=== PATIENT | female | born 1960 | race Caucasian/White ===

== ENCOUNTER → 2024-12-14 | Outpatient (CLI) | payer BC, SELFPAY ==
--- NOTE | 2024-12-14 15:00 | RAD_ITS ---
PROCEDURE: PELVIS 1 OR 2 VIEWS 12/14/2024 REASON FOR EXAM: RA TECHNIQUE: Procedure Code: RADPEL Modality: DX Procedure: PELVIS 1 OR 2 VIEWS COMPARISON: None FINDINGS: Hardware: None Bones: There is normal mineralization of the osseous structures. There are no fractures or dislocations. Degenerative changes of the lower lumbar spine are noted. Joints: SI joints and pubic symphysis are unremarkable. Both hip joints are well preserved. Soft tissues: Soft tissues are unremarkable. RAD/Pelvis 1 or 2 Views IMPRESSION: Degenerative changes of the lower lumbar spine, otherwise, unremarkable pelvic study. Reading Location: [id number]
--- NOTE | 2024-12-14 15:00 | RAD_ITS ---
PROCEDURE: HAND MIN 3 VIEWS 12/14/2024 REASON FOR EXAM: RA TECHNIQUE: Procedure Code: CHELSY Modality: DX Procedure: HAND MIN 3 VIEWS Laterality: Left COMPARISON: None FINDINGS: Bones: There is mild diffuse osteopenia of the osseous structures. There are no fractures or dislocations. Joints: Very mild arthritic changes are seen involving the D IP joints of the 2nd, 3rd, 4th, and 5th digits. The remaining joints are well preserved. Soft tissues: Soft tissues are unremarkable. RAD/Hand Min 3 Views IMPRESSION: Mild diffuse osteopenia of the osseous structures. Very mild osteoarthritic changes involving the D IP joints of the 2nd, 3rd, 4th and 5th digits Reading Location: [id number]
--- NOTE | 2024-12-14 15:01 | RAD_ITS ---
PROCEDURE: HAND MIN 3 VIEWS 12/14/2024 REASON FOR EXAM: RA TECHNIQUE: Procedure Code: CHELSY Modality: DX Procedure: HAND MIN 3 VIEWS Laterality: Right COMPARISON: None FINDINGS: Bones: Very mild diffuse osteopenia of the osseous structures is noted. There are no fractures or dislocations. Joints: Very mild arthritic changes are seen involving the D IP joints of the 2nd, 3rd and 5th digits. The remaining joints are well preserved. Soft tissues: Soft tissues are unremarkable. RAD/Hand Min 3 Views IMPRESSION: Mild diffuse osteopenia of the osseous structures. 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 Reading Location: [id number]
[2024-12-14 19:40] LABS: AST(SGOT) 26 U/L (<=31); Alanine Aminotransfer ALT/SGPT 38 U/L (<=34); Albumin, Serum 4.2 g/dL (3.4-4.8); Alkaline Phosphatase 113 U/L (35-104); Anion Gap 16 (5-15); BUN 13 mg/dL (4-19); BUN/Creat Ratio 16.1 RATIO (10-20); Calcium,Total 8.5 mg/dL (7.6-11.0); Carbon Dioxide 19.3 mmol/L (21.0-32.0); Chloride 103 mmol/L (98-108); Globulin 3.1 g/dL (2.2-4.2); Glucose 63 mg/dL (70-99); Hepatitis B Surface Antigen Nonreactive (Nonreactive); Hepatitis C Antibody Nonreactive (Nonreactive); Potassium 3.9 mmol/L (3.3-5.1)
[2024-12-14 19:42] LABS: CRP < 3.00 mg/L (0.0-3.0)
[2024-12-14 20:20] LABS: Hematocrit 44.5 % (37-47); Hemoglobin 14.9 g/dL (12.0-15.0); Immature Granulocytes Count 0.060 X10^3/uL (0.0-0.0); Mean Corp Hgb Conc 33.5 g/dL (32-36); Mean Corpuscular Volume 91.8 fL (81-99); Mean Platelet Vol. 9.4 fl (6.2-12.0); NRBC Flagged by Analyzer 0 % (0-5); Platelet Count 357 K/mm3 (150-450); RBC Distribution Width CV 13.3 % (11.6-14.6); RBC Distribution Width SD 44.3 fl (35.1-43.9); Red Blood Count 4.85 M/mm3 (4.2-5.4); White Blood Count 11.3 K/mm3 (4.4-11.0)
[2024-12-17 15:08] LABS: ANTINUCLEAR ANTIBODIES DIRECT Negative (Negative)
== END | disposition home or self-care (01) ==
LOC: MTLAB 14:59
PROVIDERS: Referring Provider Internal Medicine Rheumatology; Visit Provider Internal Medicine Rheumatology
DX: M05.79 Rheumatoid arthritis with rheumatoid factor of multiple sites without organ or systems involvement (principal); Z79.899 Other long term (current) drug therapy
CPT/HCPCS: 36415; 72170; 73130; 80053; 85025; 85652; 86038; 86140; 86200; 86431; 86706; 86803; 87340

== ENCOUNTER → 2025-01-08 | Outpatient (CLI) | payer BC, SELFPAY ==
--- OUTSIDE RECORDS SUMMARY | 2025-01-08 17:53 | XMS RPT_ITS | CCD ---
Author Organization [facility] Care Team Providers Care Autos Disassembler Name Role Phone ALBERTO BEDOYA, PAMELA Zurita Attending Bradley [facility]azzi MD, [facility] Bradley [facility]azzi [facility], [facility] Primary Care Physician Alberto BEDOYA, Dr. Choi Primary Care Physician Magalie BEDOYA, Dr. Saba Attending Physician [phone] Magalie BEDOYA, Dr. Saba Referring Provider Pamela Dominguez Primary Care Unavailable Wandy Mejias Referring Unavailable Wandy Mejias Attending PAMELA Todd Primary Care Unavailable ELLE LU MD Attending [facility] PAMELA DOMINGUEZ Attending Unavailable ANIRUDH LOPEZ DO Attending Bradley Bazzi MD, [facility] Bradley Bazzi MD, [facility] ANIRUDH Guevara DO Attending Bradley Bazzi MD, [facility] Care SILVIA Bridges MD Attending Vilma DOMINGUEZ MD, [facility] Unavailab le KLEANIRUDH CHAU DO Attending Bradley Bazzi MD, [facility] Unavailab ANIRUDH Guevara DO Attending Bradley [facility], [facility] stephanie KLEANIRUDH CHAU DO Attending IRA Roy MD Consulting Vilma DOMINGUEZ MD, [facility] Unavailab Rose Mary BEDOYA, [facility] Attending ROSEANN Murcia Consulting Unavailable ANIRUDH LOPEZ DO Attending Bradley Bazzi MD, [facility] Bradley Bazzi MD, PAMELA Zurita Primary Care Bradley Bazzi MD, PAMELA S Attending Bradley Bazzi MD, PAMELA S Primary Care ANIRUDH Massey DO Attending ANIRUDH Massey DO Attending Bradley Bazzi MD, PAMELA S Primary Care Bradley Bazzi MD, PAMELA S Primary Care Bradley Millan MD, ELLE Attending Stefano ble Allergies Allergy Classification Reported Allergen(s) Allergy Type Date of Onset Reaction(s) Facility (7 sources) Purified Protein Derivative of Tuberculin; Translations: [tuberculin purified protein derivative] Drug Allergy Positive [facility] Medications Current Medications Medication Drug Class(es) Dates Sig (Normalized) Sig (Original) acetaminophen 500 mg oral tablet (2 sources) Start: 11-20-2024 Tylenol Extra Strength 500 mg oral tablet Dose : 1,000 mg = 2 tab(s), Oral, q4h, PRN as needed for pain, # 120 tab(s), 0 Refill(s) Start Date: 11/20/24 Status: Ordered Medication Dispense Status: Completed Quantity: 120.0 Unit: tab(s) Total Allowed Fills: 1 Fills Dispensed: 0 Start: 10-16-2024 acetaminophen 500 mg oral tablet Dose : 1,000 mg = 2 tab(s), Oral, TID, PRN as needed for pain, # 20 tab(s), 1 Refill(s), [facility]: [id number], 163.8, cm, 10/16/24 6:11:00 EDT, Height, kg, 10/16/24 6:11:00 EDT, Dosing Weight Start Date: 10/16/24 Status: Ordered Quantity: 20.0 Unit: tab(s) Repeat number: 2 Albuterol (10 sources) beta2-Adrenergic Agonist Start: 01-28-2023 take 1 puff(s) by inhalation every six hours Ventolin HFA MDI (90 mcg/inh) inhalation aerosol 1 puff(s), Inhalation, q6h, # 18 gram(s), 6 Refill(s), Pharmacy: [id number], 162.8, cm, 10/28/22 16:10:00 EDT, Height, kg, 10/28/22 16:10:00 EDT, Dosing Weight Start Date: 01/28/23 Status: Ordered Medication Dispense Status: Completed Quantity: 18.0 Unit: g Total Allowed Fills: 7 Fills Dispensed: 0 Start: 01-28-2023 take 1 puff(s) by in halation every six hours Ventolin HFA MDI (90 mcg/inh) inhalation aerosol 1 puff(s), Inhalation, q6h, # 18 gram(s), 6 Refill(s), Pharmacy: [id number], 162.8, cm, 10/28/22 16:10:00 EDT, Height, kg, 10/28/22 16:10:00 EDT, Dosing Weight Start Date: 01/28/23 Status: Ordered Quantity: 18.0 Unit: g Repeat number: 7 anastrozole 1 mg oral tablet (1 source) Aromatase Inhibitor Start: 11-20-2024 anastrozole 1 mg oral tablet Dose : 1 mg = 1 tab(s), Oral, Daily, # 30 tab(s), 0 Refill(s), [facility]: [facility], Breast cancer of upper-outer quadrant of right female breast, 162.6, cm, 11/20/24 14:48:00 EDT, Height, kg, 11/20/24 14:48:00 EDT, Dosing Weight Start Date: 11/20/24 Status: Ordered Medication Dispense Status: Completed Quantity: 30.0 Unit: tab(s) Total Allowed Fills: 1 Fills Dispensed: 0 Indications: Malignant neoplasm of upper-outer quadrant of right female breast; atorvastatin 10 mg oral tablet (10 sources) HMG-CoA Reductase Inhibitor Start: 05-09-2024 take 1 tablet by mouth once daily atorvastatin 10 mg oral tablet 1 tab(s), Oral, qDay, # 90 tab(s), 3 Refill(s), [id number], 162, cm, 05/03/24 15:29:00 EST, Height, kg, 05/03/24 15:29:00 EST, Dosing Weight Start Date: 05/09/24 Status: Ordered Medication Dispense Status: Completed Quantity: 90.0 Unit: tab(s) Total Allowed Fills: 1 Fills Dispensed: 0 chondroitin sulfates 200 mg / glucosamine sulfate 250 mg oral capsule (10 sources) Start: 11-03-2018 take 1 capsule by mouth twice daily chondroitin-glucosa mine 200 mg-250 mg oral capsule Dose = 1 cap(s), Oral, BID, 0 Refill(s) Start Date: 11/03/18 Status: Ordered Medication Dispense Status: Completed Total Allowed Fills: 1 Fills Dispensed: 0 Start: 11-03-2018 take 1 capsule by [facility] once daily chondroitin-glucosamine 200 mg-250 mg oral capsule cap(s), Oral, qDay, 0 Refill(s) Start Date: 11/03/18 Status: Ordered Repeat number: 1 cloNIDine hydrochloride 0.2 mg oral tablet (10 sources) Central alpha-2 Adrenergic Agonist Start: 08-28-2024 take 1 tablet by mouth once daily at bedtime cloNIDine 0.2 mg oral tablet 1 tab(s), Oral, qHS, # 90 tab(s), 4 Refill(s) Start Date: 08/28/24 Status: Ordered Medication Dispense Status: Completed Quantity: 90.0 Unit: tab(s) Total Allowed Fills: 5 Fills Dispensed: 0 Co Q-10 100 mg oral capsule (3 sources) Start: 11-03-2018 Co Q-10 100 mg oral capsule Dose : 100 mg = 1 cap(s), Oral, Daily, 0 Refill(s) Start Date: 11/03/18 Status: Ordered Repeat number: 1 Co-Q10 200 mg oral capsule (7 sources) Start: 10-11-2024 Co-Q10 200 mg oral capsule Dose : 200 mg = 1 cap(s), Oral, qAM, # 90 cap(s), 0 Refill(s) Start Date: 10/11/24 Status: Ordered Medication Dispense Status: Completed Quantity: 90.0 Unit: cap(s) Total Allowed Fills: 1 Fills Dispensed: 0 Start: 10-11-2024 Co-Q10 200 mg oral capsule Dose : 200 mg = 1 cap(s), Oral, qAM, # 90 cap(s), 0 Refill(s) Start Date: 10/11/24 Status: Ordered Quantity: 90.0 Unit: cap(s) Repeat number: 1 cyclobenzaprine hydrochloride 10 mg oral tablet (1 source) Muscle Relaxant Start: 10-16-2024 take 1 tablet by mouth every eight hours as needed for pain cyclobenzaprine 10 mg oral tablet Dose : 10 mg =, Oral, q8h, PRN Pain, # 10 tab(s), 1 Refill(s), [facility]: [id number], 163.8, cm, 10/16/24 6:11:00 EDT, Height, kg, 10/16/24 6:11:00 EDT, Dosing Weight Start Date: 10/16/24 Status: Ordered Quantity: 10.0 Unit: tab(s) Repeat number: 2 diclofenac sodium 0.01 mg/mg topical gel (7 sources) Nonsteroidal Anti-inflammatory Drug Start: 10-11-2024 apply 2 doses topically twice daily as needed for pain Voltaren 1% topical gel 2 = gram(s), Topical, BID, PRN as needed for pain, # 1 EA, 0 Refill(s), Gel, 97.8 Start Date: 10/11/24 Status: Ordered Medication Dispense Status: Completed Quantity: 1.0 Unit: EA Total Allowed Fills: 1 Fills Dispensed: 0 Fish Oils (10 sources) Start: 10-11-2024 Fish Oil 1000 mg oral capsule Dose : 1,000 mg = 1 cap(s), Oral, qAM, # 60 cap(s), 0 Refill(s) Start Date: 10/11/24 Status: Ordered Medication Dispense Status: Completed Quantity: 60.0 Unit: cap(s) Total Allowed Fills: 1 Fills Dispensed: 0 Start: 10-11-2024 Fish Oil 1000 mg oral capsule Dose : 1,000 mg = 1 cap(s), Oral, qAM, # 60 cap(s), 0 Refill(s) Start Date: 10/11/24 Status: Ordered Quantity: 60.0 Unit: cap(s) Repeat number: 1 Start: 11-03-2018 Fish Oil 1000 mg oral capsule Dose : 1,000 mg = 1 cap(s), Oral, qDay, # 90 cap(s), 0 Refill(s) Start Date: 11/03/18 Status: Ordered Quantity: 90.0 Unit: cap(s) Repeat number: 1 folic acid 1 mg oral tablet (10 sources) Start: 12-02-2020 folic acid 1 m g oral tablet Dose : 1 mg = 1 tab(s), Oral, qDay, # 90 tab(s), 4 Refill(s), Pharmacy: [id number], 162, cm, 10/21/20 15:35:00 EDT, Height, kg, 10/21/20 15:35:00 EDT, Dosing Weight Start Date: 12/02/20 Status: Ordered Medication Dispense Status: Completed Quantity: 90.0 Unit: tab(s) Total Allowed Fills: 5 Fills Dispensed: 0 Hair, Skin, & Nails Gummies oral tablet, chewable (10 sources) Start: 11-03-2018 take 1 tablet by mouth once daily in the morning Hair, Skin, & Nails Gummies oral tablet, chewable Dose = 2 tab(s), Chewed, qAM, 0 Refill(s) Start Date: 11/03/18 Status: Ordered Medication Dispense Status: Completed Total Allowed Fills: 1 Fills Dispensed: 0 Start: 11-03-2018 take 1 tablet by idalia th once daily in the morning Hair, Skin, & Nails Gummies oral tablet, chewable Dose = 2 tab(s), Chewed, qAM, 0 Refill(s) Start Date: 11/03/18 Status: Ordered Repeat number: 1 Start: 11-03-2018 take 1 tablet by mouth once da malik Hair, Skin, & Nails Gummies oral tablet, chewable Chewed, qDay, 0 Refill(s) Start Date: 11/03/18 Status: Ordered Repeat number: 1 lidocaine 0.05 mg/mg medicated patch (4 sources) Antiarrhythmic, Amide Local Anesthetic Start: 11-01-2024 lidocaine 5% topical patch Apply 1 patch(es), Topical, qDay, remove patches after 12 hours, # 30 patch(es), 3 Refill(s), 97.5 Start Date: 11/01/24 Status: Ordered Medication Dispense Status: Completed Quantity: 30.0 Unit: patch(es) Total Allowed Fills: 4 Fills Dispensed: 0 Start: 10-16-2024 lidocaine 5% t opical patch Apply 1 patch(es), Topical, qDay, remove patches after 12 hours, # 3 patch(es), 2 Refill(s), [facility]: [id number], 163.8, cm, 10/16/24 6:11:00 EDT, Height, 97.5, kg, 10/16/24 6:11:00 EDT, Dosing Weight Start Date: 10/16/24 Status: Ordered Quantity: 3.0 Unit: patch(es) Repeat number: 3 lisinopril 10 mg oral tablet (10 sources) Angiotensin Converting Enzyme Inhibitor Start: 01-20-2024 lisinopril 10 mg ora l tablet Dose : 10 mg = 1 tab(s), Oral, BID, # 180 tab(s), 3 Refill(s), Pharmacy: [facility], 162, cm, 11/18/23 8:29:00 EDT, Height, kg, 11/18/23 8:29:00 EDT, Dosing Weight Start Date: 01/20/24 Status: Ordered Medication Dispense Status: Completed Quantity: 180.0 Unit: tab(s) Total Allowed Fills: 4 Fills Dispensed: 0 loratadine 10 mg oral capsule (7 sources) Start: 10-11-2024 loratadine 10 mg oral capsule Dose : 10 mg = 1 cap(s), Oral, qHS, # 40 cap(s), 0 Refill(s) Start Date: 10/11/24 Status: Ordered Medication Dispense Status: Completed Quantity: 40.0 Unit: cap(s) Total Allowed Fills: 1 Fills Dispensed: 0 LORazepam 1 mg oral tablet (10 sources) Benzodiazepine Start: 11-02-2018 LORazepam 1 mg oral tablet Dose : 1 mg = 1 tab(s), Oral, TAKE 1 TABLET THE NIGHT BEFORE APPOINTMENT THEN TAKE 1 TABLET AN HOUR BEFORE APPOINTMENT Start Date: 11/02/18 Status: Ordered Medication Dispense Status: Completed Total Allowed Fills: 1 Fills Dispensed: 0 methotrexate 2.5 mg oral tablet (10 sources) Folate Analog Metabolic Inhibitor Start: 10-11-2024 methotrexate 2.5 mg oral tablet Dose : 20 mg = 8 tab(s), Oral, Tuesday, # 4 tab(s), 0 Refill(s) Start Date: 10/11/24 Status: Ordered Medication Dispense Status: Completed Quantity: 4.0 Unit: tab(s) Total Allowed Fills: 1 Fills Dispensed: 0 Start: 10-28-2022 End: 11-27-2022 methotrexate 2.5 mg oral tab let Dose : 20 mg = 8 tab(s), Oral, qWeek, TAKE 7 TABLETS BY MOUTH ONCE A WEEK, # 40 tab(s), 0 Refill(s), other reason (Rx) Start Date: 10/28/22 Stop Date: 11/27/22 Status: Ordered Quantity: 40.0 Unit: tab(s) Repeat number: 1 Multivitamin preparation (10 sources) Start: 11-03-2018 take 1 tablet by mouth once daily in the morning Multivitamin Dose = 1 tab(s), Oral, qAM, 0 Refill(s) Start Date: 11/03/18 Status: Ordered Medication Dispense Status: Completed Total Allowed Fills: 1 Fills Dispensed: 0 Start: 11-03-2018 take 1 tablet by idalia th once daily in the morning Multivitamin Dose = 1 tab(s), Oral, qAM, 0 Refill(s) Start Date: 11/03/18 Status: Ordered Repeat number: 1 Start: 11-03-2018 take 1 tablet by idalia th once daily Multivitamin Dose = 1 tab(s), Oral, Daily, 0 Refill(s) Start Date: 11/03/18 Status: Ordered Repeat number: 1 mupirocin 0.02 mg/mg topical ointment (3 sources) RNA Synthetase Inhibitor Antibacterial Start: 10-11-2024 mupirocin 2% topical ointment Apply 1 mahendra, Topical, BID, Bilateral intranasal application twice daily x 5 days pre-surgery &/or as many days pre-surgery as possible., Apply to: nostril, each, # 22 gram(s), 0 Refill(s), [facility]: [id number], Ointment, 164, cm, 10/11/24 7:15:00 EDT, Height, 97.3, kg, 10/11/24 7:15:00 EDT, Dosing Weight Start Date: 10/11/24 Status: Ordered Quantity: 22.0 Unit: g Repeat number: 1 ondansetron 4 mg disintegrating oral tablet (1 source) Serotonin-3 Receptor Antagonist Start: 10-16-2024 ondansetron 4 mg oral tablet, disintegrating Dose : 4 mg = 1 tab(s), Oral, q6h, PRN Nausea/Vomiting, # 4 tab(s), 1 Refill(s), [facility]: [id number], 163.8, cm, 10/16/24 6:11:00 EDT, Height, kg, 10/16/24 6:11:00 EDT, Dosing Weight Start Date: 10/16/24 Status: Ordered Quantity: 4.0 Unit: tab(s) Repeat number: 2 predniSONE 2.5 mg oral tablet (10 sources) Start: 04-18-2020 predniSONE 2.5 mg oral tablet Dose : 2.5 mg = 1 tab(s), Oral, qAM, TAKE 1 OR 2 OR 3 TABLETS BY MOUTH DAILY Start Date: 04/18/20 Status: Ordered Medication Dispense Status: Completed Total Allowed Fills: 1 Fills Dispensed: 0 24 hr venlafaxine 75 mg extended release oral capsule (10 sources) Serotonin and Norepinephrine Reuptake Inhibitor Start: 01-20-2024 take 1 capsule by mouth once daily venlafaxine 75 mg oral capsule, extended release 1 cap(s), Oral, qDay, # 90 cap(s), 3 Refill(s), Pharmacy: [facility], 162, cm, 11/18/23 8:29:00 EDT, Height, kg, 11/18/23 8:29:00 EDT, Dosing Weight Start Date: 01/20/24 Status: Ordered Medication Dispense Status: Completed Quantity: 90.0 Unit: cap(s) Total Allowed Fills: 4 Fills Dispensed: 0 Vitamin C 250 mg oral tablet (6 sources) Start: 10-11-2024 Vitamin C 250 mg oral tablet Dose : 500 mg = 2 tab(s), Oral, qAM, # 30 tab(s), 0 Refill(s) Start Date: 10/11/24 Status: Ordered Medication Dispense Status: Completed Quantity: 30.0 Unit: tab(s) Total Allowed Fills: 1 Fills Dispensed: 0 Start: 10-11-2024 Vitamin C 250 mg oral tablet Dose : 500 mg = 2 tab(s), Oral, qAM, # 30 tab(s), 0 Refill(s) Start Date: 10/11/24 Status: Ordered Quantity: 30.0 Unit: tab(s) Repeat number: 1 Problems Problem Classification Problem Date Documented Date Episodic/Chronic Cancer of breast (8 sources) Malignant neoplasm of upper-outer quadrant of right female breast; Translations: [Malignant neoplasm of breast upper outer quadrant] Onset: 10-30-2024 Chronic Disorders of lipid metabolism (10 sources) Mixed hyperlipidemia 11-02-2018 Chronic Diverticulosis and diverticulitis (10 sources) Diverticulosis of sigmoid colon 05-03-2024 Chronic Essential hypertension (10 sources) Essential hypertension 11-03-2018 Chronic Mood disorders (10 sources) Major 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 BD BONE DENSITY DEXA AXIAL [facility] ORIGINAL EXAMINATION: BONE [id number] 3:36 pm TECHNIQUE: Dual energy bone densitometry lumbar spine and left hip. COMPARISON: 07/15/2022 HISTORY: Reason for Exam: AI therapy Osteoporosis screening. FINDINGS: L1-L4: BMD= 1.008 g/cm2 T score= -0.4 Left femoral neck: BMD= 0.823 g/cm2 T score= -0.2 Left hip: BMD= 0.984 g/cm2 T score= 0.3 L1-L4 BMD change: -7.4%, different equipment. Left hip BMD change: -4.8%, different equipment. FRAX score: Not calculated. The BHOF f/k/a NOF recommends that FDA-approved medical therapies be considered in post-menopausal women and men age >/= 50 years with a: * Hip or vertebral fracture, or * T-score of /= 20% for major osteoporotic fractures or * >/= 3% for hip fractures All treatment decisions require clinical judgement and consideration of individual patient factors, including patient preferences, comorbidities, previous drug use, risk factors not captured in the FRAX registered model (e.g., frailty, falls, vitamin D deficiency, increased bone turnover, interval significant decline in bone density) and possible under- or over-estimation of fracture risk by FRAX. IMPRESSION: Normal bone mineral density. Interpreted by: Toyin Clifton MD Preliminary Report By: Toyin Clifton MD Electronically signed By Toyin Clifton MD Dictated Date: 12/28/2024 10:25:50 PM Prelim Date: 12/28/2024 10:27:17 PM Sign Date: 12/28/2024 10:27:17 PM Ordering Provider: ELLE LU Normal COMFORT MASSILLON ANTINUCLEAR ANTIBODIES DIREC Ton 12-17-2024 SURI,DIRECT Negative Normal Negative [facility] Comment on above: Result Comment: Perf ormed at: [address] [id number] [employer] Attendant: Asim Keller PhD, Phone: [phone] Performed By: #### L 4600.0100, L3890.6301, L3890.6102, L3100.5475, L500.4050, L3890.6202, L501.6710, L101.9900, L505.7010, L100.0100 ####[facility] [id number] [place], [address] CCP IgG Antibodieson 025 CCP IgG Ab. > 250 High 0-19 [facility] Comment on above: Result Comment: Nega tive <20 Weak positive 20 - 39 Moderate positive 40 - 59 Strong positive >59 Performed at: [address] [id number] [employer] Attendant: Asim Keller PhD, Phone: [phone] Performed By: #### L 4600.0100, L3890.6301, L3890.6102, L3100.5475, L500.4050, L3890.6202, L501.6710, L101.9900, L505.7010, L100.0100 ####[facility] [address] [place], [address] Absolute lymphocyte countOrd ered By: Wandy Mejias on 12-14-2024 Lymphocytes Auto (Unsp spec) [#/Vol] 3.01 10*3/uL 0.83-4.51 [facility] Absolute neutrophil countOrd ered By: Wandy Mejias on 12-14-2024 Neutrophils (Bld) [#/Vol] 7.3 10*3/uL 2.0-7.7 [facility] Anion gap in Serum or Plasma Ordered By: Wandy Mejias on 12-14-2024 Anion gap [Moles/Vol] 16 mmol/L High 5-15 [facility] Automated lymphocyte count a s percentage of total leukocytesOrdered By: Wandy Mejias on 12-14-2024 Lymphocytes/100 WBC Auto (Unsp spec) 26.5 % 19- [facility] BUN/creatinine ratioOrdered By: [facility] Magalie on 12-14-2024 Urea nitrogen/Creatinine [Mass ratio] 16.1 mg/mg 10- [facility] Basophil percentageOrdered B y: Wandy Mejias on 12-14-2024 Basophils/100 WBC (Bld) 0.5 % 0-1 [facility] Bilirubin, totalOrdered By: Wandy Mejias on 12-14-2024 Bilirubin [Mass/Vol] 0.25 mg/dL 0.00-1.30 [facility] CBC W/Diff, Automatedon 11-20 Absolute Lymph 3.01 X10 3/uL Normal 0.83-4.51 [facility] Comment on above: Performed By: #### L 4600.0100, L3890.6301, L3890.6102, L3100.5475, L500.4050, L3890.6202, L501.6710, L101.9900, L505.7010, L100.0100 #### [facility] [address] [place], [place], [id number] Absolute Neut 7.3 X10 3/uL Normal 2.0-7.7 [facility] Comment on above: Performed By: #### L 4600.0100, L3890.6301, L3890.6102, L3100.5475, L500.4050, L3890.6202, L501.6710, L101.9900, L505.7010, L100.0100 #### [facility] [address] [place], [address] Basophils/100 WBC (Bld) 0.5 % Normal 0-1 [facility] Comment on above: Performed By: #### L 4600.0100, L3890.6301, L3890.6102, L3100.5475, L500.4050, L3890.6202, L501.6710, L101.9900, L505.7010, L100.0100 #### [facility] [address] [place], [address] Eosinophils/100 WBC (Bld) 1.7 % Normal 0-5 [facility] Comment on above: Performed By: #### L 4600.0100, L3890.6301, L3890.6102, L3100.5475, L500.4050, L3890.6202, L501.6710, L101.9900, L505.7010, L100.0100 #### [facility] [address] [place], [address] Erythrocyte distribution width (RBC) [Ratio] 13.3 % Normal 11.6-14.6 [facility] Comment on above: Performed By: #### L 4600.0100, L3890.6301, L3890.6102, L3100.5475, L500.4050, L3890.6202, L501.6710, L101.9900, L505.7010, L100.0100 #### [facility] [address] [place], [address] Hematocrit (Bld) [Volume fraction] 44.5 % Normal 37-47 [facility] Comment on above: Performed By: #### L 4600.0100, L3890.6301, L3890.6102, L3100.5475, L500.4050, L3890.6202, L501.6710, L101.9900, L505.7010, L100.0100 #### [facility] [address] [place], [address] Hemoglobin (Bld) [Mass/Vol] 14.9 g/dL Normal 12.0-15.0 [facility] Comment on above: Performed By: #### L 4600.0100, L3890.6301, L3890.6102, L3100.5475, L500.4050, L3890.6202, L501.6710, L101.9900, L505.7010, L100.0100 #### [facility] [address] [place], [address] IG% 0.500 Normal 0.0-0.9 [facility] Comment on above: Result Comment: IG% - Immature Granulocytes (promyelocytes, myelocytes and metamyelocytes) > 1% indicates that a LEFT SHIFT is Present. Performed By: #### L 4600.0100, L3890.6301, L3890.6102, L3100.5475, L500.4050, L3890.6202, L501.6710, L101.9900, L505.7010, L100.0100 #### [facility] [address] [place], [address] Lymphocytes/100 WBC (Bld) 26.5 % Normal 19-41 [facility] Comment on above: Performed By: #### L 4600.0100, L3890.6301, L3890.6102, L3100.5475, L500.4050, L3890.6202, L501.6710, L101.9900, L505.7010, L100.0100 #### [facility] [address] [place], [address] MCH (RBC) [Entitic mass] 30.7 pg Normal 27.0-32.0 [facility] Comment on above: Performed By: #### L 4600.0100, L3890.6301, L3890.6102, L3100.5475, L500.4050, L3890.6202, L501.6710, L101.9900, L505.7010, L100.0100 #### [facility] [address] [place], [address] MCHC (RBC) [Mass/Vol] 33.5 g/dL Normal 32-36 [facility] Comment on above: Performed By: #### L 4600.0100, L3890.6301, L3890.6102, L3100.5475, L500.4050, L3890.6202, L501.6710, L101.9900, L505.7010, L100.0100 #### [facility] [address] [place], [address] MCV (RBC) [Entitic vol] 91.8 fL Normal 81-99 [facility] Comment on above: Performed By: #### L 4600.0100, L3890.6301, L3890.6102, L3100.5475, L500.4050, L3890.6202, L501.6710, L101.9900, L505.7010, L100.0100 #### [facility] [address] [place], [address] Monocytes/100 WBC (Bld) 6.7 % Normal 0-10 [facility] Comment on above: Performed By: #### L 4600.0100, L3890.6301, L3890.6102, L3100.5475, L500.4050, L3890.6202, L501.6710, L101.9900, L505.7010, L100.0100 #### [facility] [address] [place], [address] Neutrophils/100 WBC (Bld) 64.1 % Normal 47-70 [facility] Comment on above: Performed By: #### L 4600.0100, L3890.6301, L3890.6102, L3100.5475, L500.4050, L3890.6202, L501.6710, L101.9900, L505.7010, L100.0100 #### [facility] [address] [place], [address] Nucleated RBC (Bld) [#/Vol] 0 10*3/uL Normal 0-5 [facility] Comment on above: Performed By: #### L 4600.0100, L3890.6301, L3890.6102, L3100.5475, L500.4050, L3890.6202, L501.6710, L101.9900, L505.7010, L100.0100 #### [facility] [address] [place], [place], [id number] (000) Platelet mean volume (Bld) [Entitic vol] 9.4 fL Normal 6.2-12.0 [facility] Comment on above: Performed By: #### L 4600.0100, L3890.6301, L3890.6102, L3100.5475, L500.4050, L3890.6202, L501.6710, L101.9900, L505.7010, L100.0100 #### [facility] [address] [place], [place], [id number] (867) Platelets (Bld) [#/Vol] 357 10*3/uL Normal 150-450 [facility] Comment on above: Performed By: #### L 4600.0100, L3890.6301, L3890.6102, L3100.5475, L500.4050, L3890.6202, L501.6710, L101.9900, L505.7010, L100.0100 #### [facility] [address] [place], [place], [phone] (751) RBC (Bld) [#/Vol] 4.85 10*6/uL Normal 4.2-5.4 [facility] Comment on above: Performed By: #### L 4600.0100, L3890.6301, L3890.6102, L3100.5475, L500.4050, L3890.6202, L501.6710, L101.9900, L505.7010, L100.0100 #### [facility] [address] [place], [address] RDW SD 44.3 fl High 35.1-43.9 [facility] Comment on above: Performed By: #### L 4600.0100, L3890.6301, L3890.6102, L3100.5475, L500.4050, L3890.6202, L501.6710, L101.9900, L505.7010, L100.0100 #### [facility] [address] [place], [address] WBC (Bld) [#/Vol] 11.3 10*3/uL High 4.4-11.0 [facility] Comment on above: Performed By: #### L 4600.0100, L3890.6301, L3890.6102, L3100.5475, L500.4050, L3890.6202, L501.6710, L101.9900, L505.7010, L100.0100 #### [facility] [address] [place], [place], [id number] CRPon 12-14-2024 C-REACTIVE PROT < 3.00 Normal 0.0-3.0 [facility] Comment on above: Performed By: #### L 4600.0100, L3890.6301, L3890.6102, L3100.5475, L500.4050, L3890.6202, L501.6710, L101.9900, L505.7010, L100.0100 #### [facility] [address] [place], [address] Carbon dioxide, total [Moles /volume] in Central venous bloodOrdered By: Wandy Mejias on 12-14-2024 CO2 [Moles/Vol] 19.3 mmol/L Low 21.0-32.0 [facility] Chloride assayOrdered By: Jesse Mejias on 12-14-2024 Chloride [Moles/Vol] 103 mmol/L 98-108 [facility] Comprehensive Metabolic Prof ilon 12-14-2024 Albumin [Mass/Vol] 4.2 g/dL Normal 3.4-4.8 [facility] Comment on above: Performed By: #### L 4600.0100, L3890.6301, L3890.6102, L3100.5475, L500.4050, L3890.6202, L501.6710, L101.9900, L505.7010, L100.0100 #### [facility] [address] [place], [address] Albumin/Globulin [Mass ratio] 1.4 {ratio} Normal 0.9-2.4 [facility] Comment on above: Performed By: #### L 4600.0100, L3890.6301, L3890.6102, L3100.5475, L500.4050, L3890.6202, L501.6710, L101.9900, L505.7010, L100.0100 #### [facility] [address] [place], [address] ALK PHOS 113 U/L High 35-104 [facility] Comment on above: Performed By: #### L 4600.0100, L3890.6301, L3890.6102, L3100.5475, L500.4050, L3890.6202, L501.6710, L101.9900, L505.7010, L100.0100 #### [facility] [address] [place], [address] ALT [Catalytic activity/Vol] 38 U/L High <=34 [facility] Comment on above: Performed By: #### L 4600.0100, L3890.6301, L3890.6102, L3100.5475, L500.4050, L3890.6202, L501.6710, L101.9900, L505.7010, L100.0100 #### [facility] [address] [place], [place], [phone] (708) AST [Catalytic activity/Vol] 26 U/L Normal <=31 [facility] Comment on above: Performed By: #### L 4600.0100, L3890.6301, L3890.6102, L3100.5475, L500.4050, L3890.6202, L501.6710, L101.9900, L505.7010, L100.0100 #### [facility] [address] [place], [place], [id number] Bilirubin [Mass/Vol] 0.25 mg/dL Normal 0.00-1.30 [facility] Comment on above: Performed By: #### L 4600.0100, L3890.6301, L3890.6102, L3100.5475, L500.4050, L3890.6202, L501.6710, L101.9900, L505.7010, L100.0100 #### [facility] [address] [place], [place], [phone] (836) BUN/CRE 16.1 RATIO Normal 10-20 [facility] Comment on above: Performed By: #### L 4600.0100, L3890.6301, L3890.6102, L3100.5475, L500.4050, L3890.6202, L501.6710, L101.9900, L505.7010, L100.0100 #### [facility] [address] [place], [place], [id number] (862) Calcium [Mass/Vol] 8.5 mg/dL Normal 7.6-11.0 [facility] Comment on above: Performed By: #### L 4600.0100, L3890.6301, L3890.6102, L3100.5475, L500.4050, L3890.6202, L501.6710, L101.9900, L505.7010, L100.0100 #### [facility] [address] [place], [place], [id number] (861) Chloride [Moles/Vol] 103 mmol/L Normal 98-108 [facility] Comment on above: Performed By: #### L 4600.0100, L3890.6301, L3890.6102, L3100.5475, L500.4050, L3890.6202, L501.6710, L101.9900, L505.7010, L100.0100 #### [facility] [address] [place], [place], [id number] CO2 [Moles/Vol] 19.3 mmol/L Low 21.0-32.0 [facility] Comment on above: Performed By: #### L 4600.0100, L3890.6301, L3890.6102, L3100.5475, L500.4050, L3890.6202, L501.6710, L101.9900, L505.7010, L100.0100 #### [facility] [address] [place], [place], [phone] (947) Creatinine [Mass/Vol] 0.79 mg/dL Normal 0.70-1.20 [facility] Comment on above: Performed By: #### L 4600.0100, L3890.6301, L3890.6102, L3100.5475, L500.4050, L3890.6202, L501.6710, L101.9900, L505.7010, L100.0100 #### [facility] [address] [place], [place], [address] GAP 16 High 5-15 [facility] Comment on above: Performed By: #### L 4600.0100, L3890.6301, L3890.6102, L3100.5475, L500.4050, L3890.6202, L501.6710, L101.9900, L505.7010, L100.0100 #### [facility] [address] [place], [address] GFR/1.73 sq M.predicted among non-blacks MDRD (S/P/Bld) [Vol rate/Area] 83 mL/min/{1.73_m2} Normal >60 [facility] Comment on above: Result Comment: mL/m in/1.73m2 CKD-EPI Creatinine Equation (2020) Performed By: #### L 4600.0100, L3890.6301, L3890.6102, L3100.5475, L500.4050, L3890.6202, L501.6710, L101.9900, L505.7010, L100.0100 #### [facility] [address] [place], [address] Globulin (S) [Mass/Vol] 3.1 g/dL Normal 2.2-4.2 [facility] Comment on above: Performed By: #### L 4600.0100, L3890.6301, L3890.6102, L3100.5475, L500.4050, L3890.6202, L501.6710, L101.9900, L505.7010, L100.0100 #### [facility] [address] [place], [address] Glucose [Mass/Vol] 63 mg/dL Low 70-99 [facility] Comment on above: Performed By: #### L 4600.0100, L3890.6301, L3890.6102, L3100.5475, L500.4050, L3890.6202, L501.6710, L101.9900, L505.7010, L100.0100 #### [facility] [address] [place], [address] Potassium [Moles/Vol] 3.9 mmol/L Normal 3.3-5.1 [facility] Comment on above: Performed By: #### L 4600.0100, L3890.6301, L3890.6102, L3100.5475, L500.4050, L3890.6202, L501.6710, L101.9900, L505.7010, L100.0100 #### [facility] [address] [place], [address] Sodium [Moles/Vol] 138 mmol/L Normal 133-145 [facility] Comment on above: Performed By: #### L 4600.0100, L3890.6301, L3890.6102, L3100.5475, L500.4050, L3890.6202, L501.6710, L101.9900, L505.7010, L100.0100 #### [facility] [address] [place], [address] T PROT 7.3 g/dL Normal 5.9-8.4 [facility] Comment on above: Performed By: #### L 4600.0100, L3890.6301, L3890.6102, L3100.5475, L500.4050, L3890.6202, L501.6710, L101.9900, L505.7010, L100.0100 #### [facility] [address] [place], [address] Urea nitrogen [Mass/Vol] 13 mg/dL Normal 4-19 [facility] Comment on above: Performed By: #### L 4600.0100, L3890.6301, L3890.6102, L3100.5475, L500.4050, L3890.6202, L501.6710, L101.9900, L505.7010, L100.0100 #### [facility] [address] [place], [place], [id number] Eosinophil percentageOrdered By: Wandy Mejias on 12-14-2024 Eosinophils/100 WBC (Bld) 1.7 % 0-5 [facility] Erythrocyte Sed Rateon 12-14 SED RATE 18 mm/hr Normal 0-30 [facility] Comment on above: Performed By: #### L 4600.0100, L3890.6301, L3890.6102, L3100.5475, L500.4050, L3890.6202, L501.6710, L101.9900, L505.7010, L100.0100 #### [facility] [address] [place], [address] Erythrocyte distribution wid th ratioOrdered By: Wandy Mejias on 12-14-2024 Erythrocyte distribution width (RBC) [Ratio] 13.3 % 11.6-14.6 [facility] Erythrocyte distribution wid th standard deviationOrdered By: [facility] Magalie on 12-14-2024 Erythrocyte distribution width (RBC) [Ratio] 44.3 fl High 35.1-43.9 [facility] Erythrocyte sedimentation ra teOrdered By: Wandy Mejias on 12-14-2024 ESR (Bld) [Velocity] 18 mm/h 0-30 [facility] Glomerular filtration rate ( GFR) estimation/1.73 sq m using serum, plasma, or whole bOrdered By: Wandy Mejias on 12-14-2024 GFR/1.73 sq M.predicted among non-blacks MDRD (S/P/Bld) [Vol rate/Area] 83 mL/min/{1.73_m2} >60 [facility] Comment on above: mL/min/1.73m2 CKD-EP I Creatinine Equation (2020) Hand Min 3 Viewson Hand Min 3 Views [facility] Imaging Services [address] [place], [place] [id number] Hand Min 3 Views MR#: [id number] Acct: [id number] Name: SHAYY BRADLEY Rep #: [id number] : 1960 F 64 From: Mayela Mancia PCP: Dr. Pamela Dominguez MD Status: REG CLI Study: Hand Min 3 Views Date of Exam: 12/14/24 Exam# [id number] Ordering Dr: Wandy Mejias MD PROCEDURE: HAND MIN 3 VIEWS 12/14/2024 REASON FOR EXAM: RA TECHNIQUE: Procedure Code: CHELSY Modality: DX Procedure: HAND MIN 3 VIEWS Laterality: Right COMPARISON: None FINDINGS: Bones: Very mild diffuse osteopenia of the osseous structures is noted. There are no fractures or dislocations. Joints: Very mild arthritic changes are seen involving the D IP joints of the 2nd, 3rd and 5th digits. The remaining joints are well preserved. Soft tissues: Soft tissues are unremarkable. RAD/Hand Min 3 Views IMPRESSION: Mild diffuse osteopenia of the osseous structures. 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 Reading Location: [id number] CC: Dr. Pamela Dominguez MD; Dr. Wandy Mejais MD Inorganic Chemical Technician: Signed Normal [facility] Hand Min 3 Views [facility] Imaging Services [address] [place] [address] Hand Min 3 Views MR#: [id number] Acct: [id number] Name: SHAYY BRADLEY Rep #: [id number] : 1960 F 64 From: Mayela Mancia PCP: Dr. Pamela Dominguez MD Status: REG CLI Study: Hand Min 3 Views Date of Exam: 12/14/24 Exam# [id number] Ordering Dr: Wandy Mejias MD PROCEDURE: HAND MIN 3 VIEWS 12/14/2024 REASON FOR EXAM: RA TECHNIQUE: Procedure Code: CHELSY Modality: DX Procedure: HAND MIN 3 VIEWS Laterality: Left COMPARISON: None FINDINGS: Bones: There is mild diffuse osteopenia of the osseous structures. There are no fractures or dislocations. Joints: Very mild arthritic changes are seen involving the D IP joints of the 2nd, 3rd, 4th, and 5th digits. The remaining joints are well preserved. Soft tissues: Soft tissues are unremarkable. RAD/Hand Min 3 Views IMPRESSION: Mild diffuse osteopenia of the osseous structures. Very mild osteoarthritic changes involving the D IP joints of the 2nd, 3rd, 4th and 5th digits Reading Location: [id number] CC: Dr. Pamela Dominguez MD; Dr. Wandy Mejias MD Inorganic Chemical Technician: Signed Normal [facility] Hematocrit Auto (Bld) [Volum e fraction]Ordered By: Wandy Mejias on 12-14-2024 Hematocrit (Bld) [Volume fraction] 44.5 % 37-47 [facility] Hemoglobin measurementOrdere d By: Wandy Mejias on 12-14-2024 Hemoglobin (Bld) [Mass/Vol] 14.9 g/dL 12.0-15.0 [facility] Hepatitis B Surface Antibody on 12-14-2024 HEP B Surf Ab Non-Reactive Normal [facility] Comment on above: Result Comment: <8.5 mIU/mL: Non-Reactive 8.5<= x <11.5 mIU/mL: Indeterminate >=11.5 mIU/mL: Reactive Non Reactive: Inconsistent with immunity less than <10 mIU/mL Reactive: Consistent with immunity greater than or equal to 10 mIU/mL Performed By: #### L 4600.0100, L3890.6301, L3890.6102, L3100.5475, L500.4050, L3890.6202, L501.6710, L101.9900, L505.7010, L100.0100 #### [facility] [address] [place], [place], [id number] Hepatitis C Antibodyon 12-14 Hepatitis C Ab Non-Reactive Normal Nonreactive [facility] Comment on above: Result Comment: Reac tive: Presumptive evidence of antibodies to HCV. Follow CDC recommendations for supplemental testing. Non-Reactive: Antibodies to HCV were not detected; does not exclude the possibility of exposure to HCV Reactive Results are presumptive evidence of antibodies to HCV. Follow CDC recommendations for supplemental testing. Order confirmation testing: HCV Quant by PCR testing - HCVPCR #[id number] Non Reactive: < 0.8 Equivocal: >/= 0.8 to < 1.0 Reactive: >/= 1.0 The CDC requires that a reactive/equivocal HCV antibody result be sent out for confirmation. HCV Quant by PCR testing. Performed By: #### L 4600.0100, L3890.6301, L3890.6102, L3100.5475, L500.4050, L3890.6202, L501.6710, L101.9900, L505.7010, L100.0100 #### [facility] [address] [place] [place], [address] Immature granulocytes/100 WB C Auto (Bld)Ordered By: Wandy Mejias on 12-14-2024 Immature granulocytes/100 WBC (Bld) 0.500 % 0.0-0.9 [facility] Comment on above: IG% - Immature Granu locytes (promyelocytes, myelocytes and metamyelocytes) > 1% indicates that a LEFT SHIFT is Present. L3890.6102on 12-14-2024 HEP B Surf Ag Non-Reactive Normal Nonreactive [facility] Comment on above: Result Comment: Reac tive: Presumptive evidence of HBV. Repeatedly reactive samples must be confirmed using a neutralization test ([employer] HBsAg Confirmatory Test) Non-Reactive: HBsAg not detected; does not exclude the possibility of exposure to HBV Performed By: #### L 4600.0100, L3890.6301, L3890.6102, L3100.5475, L500.4050, L3890.6202, L501.6710, L101.9900, L505.7010, L100.0100 #### [facility] [address] [place] [place], [address] Laboratory - Chemistry and C hemistry - challengeOrdered By: Wandy Mejias on 12-14-2024 AST [Catalytic activity/Vol] 26 U/L <32 [facility] - Microbiology an d Antimicrobial susceptibilityOrdered By: Wandy Mejias on 12-14-2024 HBV surface Ag Ql (S) Non-Reactive Nonreactive [facility] Comment on above: Reactive: Presumptiv e evidence of HBV. Repeatedly reactive samples must be confirmed using a neutralization test ([employer] HBsAg Confirmatory Test)Non-Reactive: HBsAg not detected; does not exclude the possibility of exposure to HBV MCV (mean corpuscular volume ) determinationOrdered By: Wandy Mejias on 12-14-2024 MCV (RBC) [Entitic vol] 91.8 fL 81-99 [facility] Mean corpuscular hemoglobin (MCH) determinationOrdered By: [facility] Magalie on 12-14-2024 MCH (RBC) [Entitic mass] 30.7 pg 27.0-32.0 [facility] Mean corpuscular hemoglobin concentration (MCHC) determinationOrdered By: Wandyshayna Mejias on 12-14-2024 MCHC (RBC) [Mass/Vol] 33.5 g/dL 32-36 [facility] Mean platelet volume determi nationOrdered By: Wandy Mejias on 12-14-2024 Platelet mean volume (Bld) [Entitic vol] 9.4 fL 6.2-12.0 [facility] Monocyte percentageOrdered B y: Wandy Mejias on 12-14-2024 Monocytes/100 WBC (Bld) 6.7 % 0-10 [facility] Neutrophil percentageOrdered By: [facility] Magalie on 12-14-2024 Neutrophils/100 WBC (Bld) 64.1 % 47-70 [facility] Nucleated red blood cell per centageOrdered By: Wandyshayna Mejias on 12-14-2024 Nucleated RBC/100 WBC (Bld) [Ratio] 0 % 0-5 [facility] Pelvis 1 or 2 Viewson 2024 Pelvis 1 or 2 Views [facility] Imaging Services [address] [place] [address] Pelvis 1 or 2 Views MR#: [id number] Acct: [id number] Name: SHAYY BRADLEY Rep #: [id number] : 1960 F 64 From: Mayela Chen O PCP: Dr. Pamela Dominguez MD Status: REG CLI Study: Pelvis 1 or 2 Views Date of Exam: 12/14/24 Exam# [id number] Ordering Dr: Wandy Mejias MD PROCEDURE: PELVIS 1 OR 2 VIEWS 12/14/2024 REASON FOR EXAM: RA TECHNIQUE: Procedure Code: RADPEL Modality: DX Procedure: PELVIS 1 OR 2 VIEWS COMPARISON: None FINDINGS: Hardware: None Bones: There is normal mineralization of the osseous structures. There are no fractures or dislocations. Degenerative changes of the lower lumbar spine are noted. Joints: SI joints and pubic symphysis are unremarkable. Both hip joints are well preserved. Soft tissues: Soft tissues are unremarkable. RAD/Pelvis 1 or 2 Views IMPRESSION: Degenerative changes of the lower lumbar spine, otherwise, unremarkable pelvic study. Reading Location: [id number] CC: Dr. Pamela Dominguez MD; Dr. Wandy Mejias MD Inorganic Chemical Technician: Signed Normal [facility] Platelet countOrdered By: Jesse Mejias on 12-14-2024 Platelets (Bld) [#/Vol] 357 10*3/uL 150-450 [facility] Potassium measurement (mass/ volume)Ordered By: Wandy Mejias on 12-14-2024 Potassium (Unsp spec) [Mass/Vol] 3.9 mmol/L 3.3-5.1 [facility] RBC Auto (Bld) [#/Vol]Ordere d By: Wnady Mejias on 12-14-2024 RBC (Bld) [#/Vol] 4.85 10*6/uL 4.2-5.4 [facility] Rheumatoid Factoron 12-15-19 25 RHEUMATOID FAC 19.4 IU/mL High <15 [facility] Comment on above: Performed By: #### L 4600.0100, L3890.6301, L3890.6102, L3100.5475, L500.4050, L3890.6202, L501.6710, L101.9900, L505.7010, L100.0100 #### [facility] [address] [place], [address] Serum creatinine measurement (mass/volume)Ordered By: Wandy Mejias on 12-14-2024 Creatinine [Mass/Vol] 0.79 mg/dL 0.70-1.20 [facility] Serum globulin measurementOr dered By: Wandy Mejias on 12-14-2024 Globulin (S) [Mass/Vol] 3.1 g/dL 2.2-4.[address] [facility] Serum glucose measurement (m ass/volume)Ordered By: Wandy Mejias on 12-14-2024 Glucose [Mass/Vol] 63 mg/dL Low 70-99 [facility] Serum hepatitis B virus surf kevin antibody detectionOrdered By: Wandy Mejias on 12-14-2024 HBV surface Ab Ql (S) Non-Reactive [facility] Comment on above: <8.5 mIU/mL: Non-Accord ctive8.5<= x <11.5 mIU/mL: Indeterminate>=11.5 mIU/mL: Reactive Non Reactive: Inconsistent with immunity less than <10 mIU/mL Reactive: Consistent with immunity greater than or equal to 10 mIU/mL Serum or plasma C reactive p rotein measurement (mass/volume)Ordered By: Wandy Mejias on 12-14-2024 CRP [Mass/Vol] mg/L 0.0-3.0 [facility] Serum or plasma alanine feliciano otransferase (ALT) measurementOrdered By: Wandy Mejias on 12-14-2024 ALT [Catalytic activity/Vol] 38 U/L High <35 [facility] Serum or plasma albumin marcellus urement (mass/volume)Ordered By: Wandy Mejias on 12-14-2024 Albumin [Mass/Vol] 4.2 g/dL 3.4-4.8 [facility] Serum or plasma albumin/glob ulin mass ratioOrdered By: Wandy Mejias on 12-14-2024 Albumin/Globulin [Mass ratio] 1.4 {ratio} 0.9-2.4 [facility] Serum or plasma alkaline brisa sphatase measurementOrdered By: Wandy Mejias on 12-14-2024 ALP [Catalytic activity/Vol] 113 U/L High 35-104 [facility] Serum or plasma calcium marcellus urement (mass/volume)Ordered By: Wandy Mejias on 12-14-2024 Calcium [Mass/Vol] 8.5 mg/dL 7.6-11.0 [facility] Serum or plasma cyclic citru llinated peptide IgG antibody assay (units/volume)Ordered By: Wandy Mejias on 12-14-2024 Cyclic citrullinated peptide IgG Qn > 250 units High 0-19 [facility] Comment on above: Negative <20 Weak po sitive 20 - 39 Moderate positive 40 - 59 Strong positive >59Performed at: [facility] [place] [id number] Director: Asim Keller PhD, Phone: [phone] Serum or plasma urea nitroge n measurement (mass/volume)Ordered By: Wandy Mejias on 12-14-2024 Urea nitrogen [Mass/Vol] 13 mg/dL 4-19 [facility] Serum rheumatoid factor dete ctionOrdered By: Wandy Mejias on 12-14-2024 Rheumatoid factor Ql (S) 19.4 IU/mL High <15 [facility] Sodium levelOrdered By: Rebeka Mejias on 12-14-2024 Sodium [Moles/Vol] 138 mmol/L 133-145 [facility] Total proteinOrdered By: Koffi Mejias on 12-14-2024 Protein [Mass/Vol] 7.3 g/dL 5.9-8.4 [facility] White blood cell (WBC) count Ordered By: Wandy Mejias on 12-14-2024 WBC (Bld) [#/Vol] 11.3 10*3/uL High 4.4-11.0 [facility] Final Surgical Pathology Rep [facility] 11-12-2024 Final Surgical Pathology Report . Pathology Reports Accession: Collected Date/Time: Received Date/Time: Pathologist: [id number] 11/08/2024 10:38 EDT 11/09/2024 07:28 EDT JAYESH SANTIZO MD Final Surgical Pathology Report DIAGNOSIS: A. RIGHT SENTINEL NODE #1: - NEGATIVE FOR METASTASIS B. SENTINEL NODE #2: - NEGATIVE FOR METASTASIS C. SENTINEL NODE #3: - NEGATIVE FOR METASTASIS CLINICAL INFORMATION: Procedure: RIGHT AXILLARY SENTINEL LYMPH NODE MAPPING AND BIOPSY (RIGHT NUCLEAR MEDICINE) POSSIBLE AXILLARY LYMPH NODE DISSECTION Preoperative diagnosis: RIGHT BREAST CANCER Postoperative diagnosis: RIGHT BREAST CANCER SPECIMEN: A RIGHT SENTINEL LYMPH NODE #1 - FROZEN SECTION B RIGHT SENTINEL LYMPH NODE #2 - FROZEN SECTION C RIGHT SENTINEL LYMPH NODE #3 - FROZEN SECTION INTRAOPERATIVE CONSULTATION: A FS: SINGLE LYMPH NODE - NO METASTASIS SEEN ON FROZEN. B FS: FIBROFATTY TISSUE AND SMALL LYMPH NODE - NO METASTASIS SEEN ON FROZEN. C FS: SINGLE LYMPH NODE - NO METASTASIS SEEN ON FROZEN. Performed by Richard Epstein M.D. GROSS DESCRIPTION: All parts labelled with patient name and [id number] A. Received fresh for frozen section and designated "right sentinel lymph node #1" is a single possible lymph node, 1.3 cm in greatest dimension. The lymph node is bisected and entirely submitted in cassette AFS1 for frozen section.. TS-1 B. Received fresh for frozen section and designated "right sentinel lymph node #2" is a landers fatty portion of tissue with a single possible lymph node, 0.3 cm in greatest dimension. The entire possible node is submitted intact for frozen section in cassette BFS1. RS-1 C. received fresh for frozen section and designated "right sentinel lymph node #3" is a single lymph node, 0.8 cm in greatest dimension. It is bisected and entirely submitted for frozen section in cassette CFS1. TS-1 Deborah Dan, Pathologists ' Mathematics Professor (ASCP) Performed by Deborah Dan MICROSCOPIC DESCRIPTION: The microscopic examination is performed, except in the case of Gross Only. Pathology Reports Accession: Collected Date/Time: Received Date/Time: Pathologist: [id number] 11/08/2024 10:38 EDT 11/09/2024 07:28 EDT JAYESH SANTIZO MD Verified by Pathology Report verified by [facility] JAYESH SANTIZO Sign out Date: 11/12/2024 16:13 Performing Lab: [facility], [address] [place] [address] Pathology Dept Disclaimer If ancillary studies were utilized, the following Laboratory Developed Test (LDT) disclaimer will apply: Under CLIA requirements, [facility] is qualified to perform high complexity testing. For all ancillary stains, positive and negative controls stain appropriately. Performance characteristics of immunohistochemical and chromogenic in-situ hybridization tests have been determined by [facility]. These tests are used for clinical purposes, They should not be regarded as investigational or for research. [facility] NM INJECTION SENTINEL NODEon 11-08-2024 NM INJECTION SENTINEL NODE ORIGINAL EXAMINATION: LYMPHOSCINTIGRAPHY (INJECTION)11/08/2024 8:58 am TECHNIQUE: Syringes containing a total of 1.071 millicuries of Tc-99m tilmanocept (Lymphoseek) were injected for sentinel lymph node localization and dissection to be performed by the breast surgeon. COMPARISON: None HISTORY: ORDERING SYSTEM PROVIDED HISTORY: Reason for Exam: breast cancer FINDINGS: No images were acquired. Intraoperative probe to be used for localization. IMPRESSION: Patient with breast carcinoma undergoing Lymphoseek injection for the purposes of sentinel node localization. I have personally reviewed the images of this examination and agree with the resident's findings and interpretation. Interpreted by: Oziel Purdy DO Preliminary Report By: Kirit Montgomery Electronically signed By Oziel Purdy DO Dictated Date: 11/08/2024 9:12:31 AM Prelim Date: 11/08/2024 9:29:20 AM Sign Date: 11/08/2024 9:29:20 AM Ordering Provider: ANIRUDH LOPEZ [facility] MISCon 11-02-2024 Misc. Send Out See Comments [facility] Comment on above: Order Comment: Tempu s XG Result Comment: Resu lts sent directly to ordering physician Performed By: #### M [facility] ####[place] [address] Final Surgical Pathology Rep [facility] 10-24-2024 Final Surgical Pathology Report . Pathology Reports Accession: Collected Date/Time: Received Date/Time: Pathologist: [id number] 09/11/2024 09:00 EDT 09/11/2024 11:14 EDT JAYESH SANTIZO MD Final Surgical Pathology Report CORRECTED REPORT: Correction- deeper levels and immunohistochemical evaluation show atypical papillary clusters and some mucinous material suspicious for malignancy. Recommend excision. Message left for Dr. Dominguez and Sophy. Heading corrected (not a cosmetic procedure.) p63, MSA, ER, NV and HER2/deonte stains used in evaluation. DIAGNOSIS: RIGHT BREAST, ASYMMETRY: Atypical papillary clusters and mucinous material suspicious for malignancy. Recommend excision CLINICAL INFORMATION: RIGHT BREAST ASYMMETRY Procedure: STEREO BX SPECIMEN: A 0.8CM RIGHT BREAST ASYMMETRY 10-11:00 GROSS DESCRIPTION: All parts labelled with patient name and [id number] Received in formalin labelled undesignated on the container" Are multiple yellow fibrofatty breast cores aggregating to 2.6 x 1.6 x 0.7 cm. Specimen removed from patient @931. Placed in Formalin Fixative @933. Cold Ischemia time 2 minutes. Total time in formalin (in processor) 1 hrs. Total Time in Formalin Fixative 16 hrs. TS-2 Christiano Barr, Pathologists' Mathematics Professor (ASCP) Performed by CHRISTIANO BARR MICROSCOPIC DESCRIPTION: The microscopic examination is performed, except in the case of Gross Only. Verified by Pathology Report verified by [facility] JAYESH SANTIZO Sign out Date: 10/24/2024 08:53 Performing Lab: [facility], [address] [place] [address] Pathology Dept Disclaimer If ancillary studies were utilized, the following Laboratory Developed Test (LDT) disclaimer will apply: Under CLIA requirements, [facility] is qualified to perform high complexity testing. For all ancillary stains, positive and negative controls stain appropriately. Performance characteristics of immunohistochemical and chromogenic in-situ hybridization tests have been determined by [facility]. These tests are used for clinical purposes, They should not be regarded as investigational or for research. Normal [facility] Final Surgical Pathology Rep [facility] 10-18-2024 Final Surgical Pathology Report . Pathology Reports Accession: Collected Date/Time: Received Date/Time: Pathologist: [id number] 10/16/2024 09:04 EDT 10/16/2024 11:27 EDT OSMANY ERICKSON MD Final Surgical Pathology Report DIAGNOSIS: A. 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 RIGHT BREAST, ADDITIONAL DEEP MARGIN: - NEGATIVE FOR MALIGNANCY C. RIGHT BREAST, ADDITIONAL MEDIAL MARGIN: - NEGATIVE FOR MALIGNANCY D. RIGHT BREAST, ADDITIONAL INFERIOR MARGIN: - NEGATIVE FOR MALIGNANCY E. RIGHT BREAST, ADDITIONAL LATERAL MARGIN: - NEGATIVE FOR MALIGNANCY F. 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 component (EIC) Tumor Extent TUMOR EXTENT: Not applicable LYMPHATIC AND / OR VASCULAR INVASION: Not identified TREATMENT EFFECT IN THE BREAST: No known presurgical therapy TREATMENT EFFECT IN THE LYMPH NODES: Not applicable MARGINS MARGIN STATUS FOR INVASIVE CARCINOMA: All margins negative for invasive carcinoma DISTANCE FROM INVASIVE CARCINOMA TO CLOSEST MARGIN: GREATER THAN - 10 mm MARGIN STATUS FOR DCIS: All margins negative for DCIS DISTANCE FROM DCIS TO CLOSEST MARGIN: GREATER THAN - 10 mm CLOSEST MARGIN(S) TO DCIS: Anterior REGIONAL LYMPH NODES REGIONAL LYMPH NODE STATUS: Not applicable (no regional lymph nodes submitted or found) DISTANT METASTASIS DISTANT SITE(S) INVOLVED: Not applicable pTNM CLASSIFICATION (AJCC 8th Edition) Reporting of pT, pN, and (when applicable) pM categories is based on information available to the pathologist at the time the report is issued. As per the AJCC (Chapter 1, 8th Ed.) it is the managing physician's responsibility to establish the final pathologic stage based upon all pertinent information, including but potentially not limited to this pathology report. MODIFIED CLASSIFICATION: Not applicable PT CATEGORY: pT1b Pathology Reports Accession: Collected Date/Time: Received Date/Time: Pathologist: [id number] 10/16/2024 09:04 EDT 10/16/2024 11:27 EDT OSMANY ERICKSON MD DIAGNOSIS: T SUFFIX: Not applicable PN CATEGORY: pN not assigned (no nodes submitted or found) N SUFFIX: Not applicable PM CATEGORY: Not applicable - pM cannot be determined from the submitted specimen(s) Breast Biomarker Reporting Template TEST(S) PERFORMED: ESTROGEN RECEPTOR (ER) STATUS: POSITIVE (greater than 10% of cells demonstrate nuclear positivity) PERCENTAGE OF CELLS WITH NUCLEAR POSITIVITY: 81-90% AVERAGE INTENSITY OF STAINING: Strong PROGESTERONE RECEPTOR (PGR) STATUS: POSITIVE PERCENTAGE OF CELLS WITH NUCLEAR POSITIVITY: 81-90% AVERAGE INTENSITY OF STAINING: Strong HER2 BY IMMUNOHISTOCHEMISTRY: NEGATIVE (Score 0) COLD ISCHEMIA AND FIXATION TIMES: Meet requirements specified in latest version of the ASCO / CAP Guidelines, unless otherwise specified in the gross description. 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 Primary antibody clones: ER: SP1, NV:1E2, Her2:4B5; Detection system: [employer] If specimens were decalcified, loss of immunoreactivity may occur; negative results should be interpreted with caution. Isolated NV positivity (in the absence of ER staining) at low levels is not a reproducible result, could be an artifact, and may not be clinically significant. Invasive carcinomas with 1 to 10% of cells staining for ER (not PgR) are reported as "Low Positive " and the following comment is applicable: "There are limited data on the overall benefit of endocrine therapies for patients with low level (1-10%) ER expression but they currently suggest possible benefit, so patients are considered eligible for endocrine treatment. There are data that suggest invasive cancers with these results are heterogeneous in both behavior and biology and often have gene expression profiles more similar to ER negative cancers. " CLINICAL INFORMATION: Procedure: RIGHT BREAST REFLECTOR LOCALIZED EXCISIONAL BIOPSY Preoperative diagnosis: RIGHT BREAST MASS Postoperative diagnosis: RIGHT BREAST MASS SPECIMEN: A RIGHT BREAST REFLECTOR LOCALIZED EXCISIONAL BIOPSY B ADDITIONAL DEEP MARGIN C ADDITIONAL MEDIAL MARGIN D (more content not included)... Normal [facility] BIOPSY ORon 10-16-2024 [place] BIOPSY OR ORIGINAL FROM: [address] [address] PROCEDURE FOR: SHAYY BRADLEY [address] [place] [address] Home: Work: PID#: [id number] Exam#: [id number] : 1960 Age: 64 TO: ANIRUDH LOPEZ [address] [place] [address] EXAMINATION: SPECIMEN RADIOGRAPH 10/16/2024 7:09 am COMPARISON: October 11, 2024, September 26, 2024, September 11, 2024, September 07, 2024, August 23, 2024, July 19, 2023 HISTORY: Surgical specimen radiograph. FINDINGS: A surgical specimen was imaged using uni-planar radiograph specimen imaging for the area of concern located in the right breast. This was described on prior exams. The specimen includes the MEGAN cloth reeler radar reflector and biopsy clip. IMPRESSION: Specimen radiograph as above. Please see surgical notes and pathology results for more detail. Findings were called to the operating room at the time of acquisition. BIRADS: RECALL: no message RECALL TYPE: unspecified LETTER SENT: No Letter Interpreted by: Roseann Gutierrez Preliminary Report By: Roseann Gutierrez Electronically signed By Roseann Gutierrez Dictated Date: 10/16/2024 8:51:06 AM Prelim Date: 10/16/2024 8:52:05 AM Sign Date: 10/16/2024 8:52:05 AM Ordering Provider: ANIURDH LOPEZ Rehab Spec: YOLIE SANTIAGO Normal [facility] .Auto Diffon 10-11-2024 Basophil, Absolute 0.1 10 3/mcL Normal 0.0-0.3 [facility] Comment on above: Performed By: #### B MP, GFR, ANEU, ADIFF, CBC ####[facility] [place] [address] Basophils/100 WBC (Bld) 1.0 % Normal 0.0-2.5 [facility] Comment on above: Performed By: #### B MP, GFR, ANEU, ADIFF, CBC ####[address] [address] Eosinophil, Absolute 0.3 10 3/mcL Normal 0.0-0.7 [facility] Comment on above: Performed By: #### B MP, GFR, ANEU, ADIFF, CBC ####[address] [address] Eosinophils/100 WBC (Bld) 3.3 % Normal 0.0-6.0 [facility] Comment on above: Performed By: #### B MP, GFR, ANEU, ADIFF, CBC ####[address] [address] Lymphocyte, Absolute 2.3 10 3/mcL Normal 0.9-4.3 [facility] Comment on above: Performed By: #### B MP, GFR, ANEU, ADIFF, CBC ####[address] [address] Lymphocytes/100 WBC (Bld) 22.9 % Normal 20.0-40.0 [facility] Comment on above: Performed By: #### B MP, GFR, ANEU, ADIFF, CBC ####[address] [address] Monocyte, Absolute 0.8 10 3/mcL Normal 0.1-1.4 [facility] Comment on above: Performed By: #### B MP, GFR, ANEU, ADIFF, CBC ####[address] [address] Monocytes/100 WBC (Bld) 7.7 % Normal 2.0-13.0 [facility] Comment on above: Performed By: #### B MP, GFR, ANEU, ADIFF, CBC ####[address] [address] Neutrophils/100 WBC (Bld) 65.1 % Normal 50.0-75.0 [facility] Comment on above: Performed By: #### B MP, GFR, ANEU, ADIFF, CBC ####[address] [address] .GFRon 10-11-2024 Estimated Glomerular Filtration Rate 83 ml/min/1.73sqm Normal [facility] Comment on above: Result Comment: Stages of Chronic Kidney Disease (CKD) Stage Description eGFR(ml/min/1.73 sq.m.) CKD 1 Normal kidney function or >=90 normal kindney function with possible kidney damage (ex. Proteinuria) CKD 2 Kidney damage with mild loss 60-89 of kidney function CKD 3a Mild to moderate loss of kidney 45-59 function CKD 3b Moderate to severe loss of 30-44 of kindey function CKD 4 Severe loss of kidney function 15-29 CKD 5 Kidney failure <15 Note: (go live 2024) the eGFR calculation was updated to the 2020 CKD-EPI creatinine equation without a race factor to calculate the eGFR results. Performed By: #### B MP, GFR, ANEU, ADIFF, CBC ####[address] [address] .NEUABSon 10-11-2024 Neutrophil, Absolute 6.5 10 3/mcL Normal 2.3-8.1 [facility] Comment on above: Performed By: #### B MP, GFR, ANEU, ADIFF, CBC ####[address] [address] BMPon 10-11-2024 BUN/Creatinine Ratio 21.5 ratio Normal 10.0-22.0 [facility] Comment on above: Performed By: #### B MP, GFR, ANEU, ADIFF, CBC ####[address] [address] Calcium [Mass/Vol] 9.5 mg/dL Normal 8.7-10.4 [facility] Comment on above: Performed By: #### B MP, GFR, ANEU, ADIFF, CBC ####[address] [address] Chloride [Moles/Vol] 108 mmol/L Normal 98-110 [facility] Comment on above: Performed By: #### B MP, GFR, ANEU, ADIFF, CBC ####[address] [address] CO2 [Moles/Vol] 25 mmol/L Normal 22-32 [facility] Comment on above: Performed By: #### B MP, GFR, ANEU, ADIFF, CBC ####[place] [address] Creatinine [Mass/Vol] 0.79 mg/dL Normal 0.50-1.20 [facility] Comment on above: Result Comment: Test ing performed on Adspringr analyzer using enzymatic creatinine methodology. Performed By: #### B MP, GFR, ANEU, ADIFF, CBC ####[place] [address] Electrolyte Balance 11.0 mEq/L Normal 4.0-15.[address] [facility] Comment on above: Performed By: #### B MP, GFR, ANEU, ADIFF, CBC ####[place] [address] Glucose [Mass/Vol] 134 mg/dL High 82-115 [facility] Comment on above: Performed By: #### B MP, GFR, ANEU, ADIFF, CBC ####[place] [address] Potassium [Moles/Vol] 4.2 mmol/L Normal 3.5-5.0 [facility] Comment on above: Performed By: #### B MP, GFR, ANEU, ADIFF, CBC ####[place] [address] Sodium [Moles/Vol] 144 mmol/L Normal 136-145 [facility] Comment on above: Performed By: #### B MP, GFR, ANEU, ADIFF, CBC ####[place] [address] Urea nitrogen [Mass/Vol] 17.0 mg/dL Normal 8.0-22.0 [facility] Comment on above: Performed By: #### B MP, GFR, ANEU, ADIFF, CBC ####[place] [address] CBCon 10-11-2024 Erythrocyte distribution width (RBC) [Ratio] 14.3 % Normal 11.5-15.5 [facility] Comment on above: Performed By: #### B MP, GFR, ANEU, ADIFF, CBC ####[place] [address] Hematocrit (Bld) [Volume fraction] 42.6 % Normal 34.0-46.0 [facility] Comment on above: Performed By: #### B MP, GFR, ANEU, ADIFF, CBC ####[place] [address] Hgb 14.4 G/dL Normal 12.0-16.0 [facility] Comment on above: Performed By: #### B MP, GFR, ANEU, ADIFF, CBC ####[place] [address] MCH (RBC) [Entitic mass] 31.1 pg Normal 27.0-33.0 [facility] Comment on above: Performed By: #### B MP, GFR, ANEU, ADIFF, CBC ####[place] [address] MCHC 33.9 G/dL Normal 32.0-36.0 [facility] Comment on above: Performed By: #### B MP, GFR, ANEU, ADIFF, CBC ####[place] [address] MCV (RBC) [Entitic vol] 91.5 fL Normal 80.0-99.0 [facility] Comment on above: Performed By: #### B MP, GFR, ANEU, ADIFF, CBC ####[place] [address] Platelet 324 10 3/mcL Normal 150-450 [facility] Comment on above: Performed By: #### B MP, GFR, ANEU, ADIFF, CBC ####[place] [address] Platelet mean volume (Bld) [Entitic vol] 6.9 fL Normal 6.6-10.5 [facility] Comment on above: Performed By: #### B MP, GFR, ANEU, ADIFF, CBC ####[place] [address] RBC 4.65 10 6/mcL Normal 4.10-5.30 [facility] Comment on above: Performed By: #### B MP, GFR, ANEU, ADIFF, CBC ####[address] [place] [address] WBC 10.0 10 3/mcL Normal 4.5-10.8 [facility] Comment on above: Performed By: #### B MP, GFR, ANEU, ADIFF, CBC ####[place] [address] [place] [address] LABORATORYOrdered By: SYSTEM SYSTEM on 10-11-2024 Basophils (Bld) [#/Vol] 0.1 103/mcL Normal 0.0 - 0.3 10^3/mcL Workflow SS Basophils/100 WBC (Bld) 1.0 % Normal 0.0 - 2.5 % AH Workflow SS Calcium [Mass/Vol] 9.5 mg/dL Normal 8.7 - 10. 4 mg/dL ADM SS Chloride [Moles/Vol] 108 mmol/L Normal 98 - 11 0 mEq/L ADM SS CO2 [Moles/Vol] 25 mmol/L Normal 22 - 32 mEq/L ADM SS Creatinine [Mass/Vol] 0.79 mg/dL Normal 0.50 - 1.20 mg/dL ADM SS Comment on above: Interpretive Data: T esting performed on Adspringr analyzer using enzymatic creatinine methodology. Electrolyte Balance 11.0 mEq/L Normal 4.0 - 15 .0 mEq/L ADM SS Eosinophils (Bld) [#/Vol] 0.3 103/mcL Normal 0.0 - 0.7 10^3/mcL Workflow SS Eosinophils/100 WBC (Bld) 3.3 % Normal 0.0 - 6.0 % AH Workflow SS Erythrocyte distribution width (RBC) [Ratio] 14.3 % Normal 11.5 - 15.5 % AH Workflow SS Estimated Glomerular Filtration Rate 83 ml/min/1.73sqm Invalid Interpretation Code Chemistry S Comment on above: Interpretive Data: Stages of Chronic Kidney Disease (CKD) Stage Description eGFR(ml/min/1.73 sq.m.) CKD 1 Normal kidney function or >=90 normal kindney function with possible kidney damage (ex. Proteinuria) CKD 2 Kidney damage with mild loss 60-89 of kidney function CKD 3a Mild to moderate loss of kidney 45-59 function CKD 3b Moderate to severe loss of 30-44 of kindey function CKD 4 Severe loss of kidney function 15-29 CKD 5 Kidney failure <15 Note: (go live 2024) the eGFR calculation was updated to the 2020 CKD-EPI creatinine equation without a race factor to calculate the eGFR results. Glucose [Mass/Vol] 134 mg/dL High 82 - 115 mg/dL AH ADM SS Hematocrit (Bld) [Volume fraction] 42.6 % Normal 34.0 - 46.0 % AH Workflow SS Hemoglobin (Bld) [Mass/Vol] 14.4 G/dL Normal 12.0 - 16.0 G/dL AH Workflow SS Lymphocytes (Bld) [#/Vol] 2.3 103/mcL Normal 0.9 - 4.3 10^3/mcL AH Workflow SS Lymphocytes/100 WBC (Bld) 22.9 % Normal 20.0 - 40.0 % AH Workflow SS MCH (RBC) [Entitic mass] 31.1 pg Normal 27.0 - 33.0 pg AH Workflow SS MCHC 33.9 G/dL Normal 32.0 - 36.0 G/dL AH Workflow SS MCV (RBC) [Entitic vol] 91.5 fL Normal 80.0 - 99.0 fL AH Workflow SS Monocytes (Bld) [#/Vol] 0.8 103/mcL Normal 0.1 - 1.4 10^3/mcL AH Workflow SS Monocytes/100 WBC (Bld) 7.7 % Normal 2.0 - 13.0 % AH Workflow SS Neutrophils (Bld) [#/Vol] 6.5 103/mcL Normal 2.3 - 8.1 10^3/mcL AH Workflow SS Neutrophils/100 WBC (Bld) 65.1 % Normal 50.0 - 75.0 % AH Workflow SS Platelet mean volume (Bld) [Entitic vol] 6.9 fL Normal 6.6 - 10.5 fL AH Workflow SS Platelets (Bld) [#/Vol] 324 103/mcL Normal 150 - 450 10^3/mcL AH Workflow SS Potassium [Moles/Vol] 4.2 mmol/L Normal 3.5 - 5.0 mEq/L AH ADM SS RBC (Bld) [#/Vol] 4.65 106/mcL Normal 4.10 - 5.3 0 10^6/mcL AH Workflow SS Sodium [Moles/Vol] 144 mmol/L Normal 136 - 145 mEq/L AH ADM SS Urea nitrogen [Mass/Vol] 17.0 mg/dL Normal 8.0 - 22.0 mg/dL AH ADM SS Urea nitrogen/Creatinine [Mass ratio] 21.5 ratio Normal 10.0 - 22.0 ratio AH ADM SS WBC (Bld) [#/Vol] 10.0 103/mcL Normal 4.5 - 10.8 10^3/mcL AH Workflow SS MA BREAST NDL LOC PLACEMENT RIGHT 1ST LESIONon 10-11-2024 MA BREAST NDL LOC PLACEMENT RIGHT 1ST LESION ORIGINAL FROM: [facility] [address] [place] [address] PROCEDURE FOR: SHAYY RochaGerson SHIRAREIStanislaw [address] [place] [address] Home: Work: PID#: [id number] Exam#: [id number] : 1960 Age: 64 TO: ANIRUDH LOPEZ D[address] [place] [address] EXAMINATION: MAMMOGRAPHIC GUIDED INFRARED ACTIVATED RADAR REFLECTOR DEVICE PLACEMENT RIGHT BREAST WITH POST DIGITAL MAMMOGRAM IMAGING 10/11/2024 7:52 am COMPARISON: Mammograms 09/11/2024, 09/07/2024, and 08/23/2024 HISTORY: ORDERING SYSTEM PROVIDED HISTORY: Reason for Exam: RIGHT BREAST MASS FINDINGS: A timeout was performed to confirm patient identification and site of procedure. Risks, benefits, and alternatives of the procedure were discussed. Informed written consent was obtained. An infrared activated radar reflector device placement using digital mammography guidance was performed for the marker clip located in the right breast at 10-11 o'clock position middle depth. This was described on the previous mammography report. The skin was prepped in the usual manner. Local anesthetic was administered to the access site. The localization was approached from the lateral aspect. A location device was inserted into the targeted area under digital mammography guidance. Post placement digital mammographic imaging demonstrates location device in the center of the targeted area. The reflector was emitting signal post placement. STATUS: Successful IMPRESSION: Infrared activated radar reflector device placement was successful with no apparent post procedure complications. A specimen radiograph is recommended. The procedure was done with participation of the resident in my presence and direct supervision. I have reviewed the films and the findings with the resident and agree with the contents of the report. BIRADS: RECALL: no message RECALL TYPE: unspecified LETTER SENT: No Letter Interpreted by: Oziel Warren MD Preliminary Report By: Sydni Mata Electronically signed By Oziel Warren MD Dictated Date: 10/11/2024 8:47:25 AM Prelim Date: 10/11/2024 6:28:07 PM Sign Date: 10/11/2024 6:28:07 PM Ordering Provider: ANIRUDH LOPEZ Rehab Spec: JAYDE RAMOS RT(R)(M) [facility] [place] STEREOTACTIC BIOPSY RIGHT 1ST LESIONon 09-13-2024 MA STEREOTACTIC BIOPSY RIGHT 1ST LESION ADDENDUM ADDENDUM: Pathology results are now available and indicate benign fibrofatty breast tissue without evidence of atypia or malignancy. Pathology results are concordant with the imaging findings. Recommendations: A 6 month follow up diagnostic right mammogram is recommended. BIRADS: RECALL: 6 month follow-up RECALL TYPE: Right mammo LETTER SENT: Core Biopsy-6 month followup Interpreted by: Kaitlin Birmingham MD Preliminary Report By: Kaitlin Birmingham MD Electronically signed By Kaitlin Birmingham MD Dictated Date: 09/12/2024 3:07:58 PM Prelim Date: 09/12/2024 3:13:35 PM Sign Date: 09/12/2024 3:13:35 PM Ordering Provider: PAMELA DOMINGUEZ ADDENDUM ADDENDUM: After the initial pathology report was released, pathology examined deeper levels of the tissue which shows the following: Pathology results are now available and indicate malignant atypical papillary clusters and some mucinous material suspicious for malignancy. Pathology results are concordant with the imaging findings. Recommendations: Surgical consultation, surgical excision and chemo oncology consultation are recommended. BIRADS: RECALL: immediate RECALL TYPE: Biopsy followup LETTER SENT: Core Biopsy-Excision Interpreted by: Kaitlin Birmingham MD Preliminary Report By: Kaitlin Birmingham MD Electronically signed By Kaitlin Birmingham MD Dictated Date: 09/13/2024 3:48:35 PM Prelim Date: 09/13/2024 4:05:17 PM Sign Date: 09/13/2024 4:05:17 PM Ordering Provider: PAMELA DOMINGUEZ Interpreted by: Kaitlin Birmingham MD Preliminary Report By: Kaitlin Birmingham MD Electronically signed By Kaitlin Birmingham MD Dictated Date: 09/13/2024 3:48:35 PM Prelim Date: 09/13/2024 4:05:17 PM Sign Date: 09/13/2024 4:05:17 PM Ordering Provider: PAMELA DOMINGUEZ ORIGINAL FROM: [address] [address] PROCEDURE FOR: SHAYY BRADLEY [address] [place] [address] Home: Work: PID#: [id number] Exam#: [id number] : 1960 Age: 64 TO: PAMELA DOMINGUEZ MD [facility] [address] [address] Fax: NO FAX EXAMINATION: STEREOTACTIC BIOPSY OF THE RIGHT BREAST, 09/11/2024 8:54 am COMPARISON: September 07, 2024, August 23, 2024, July 19, 2023, July 15, 2022 HISTORY: ORDERING SYSTEM PROVIDED HISTORY: Reason for Exam: RIGHT MASS FINDINGS: A timeout was performed to confirm patient identification and site of procedure. Risks, benefits, and alternatives of the procedure were discussed. Informed written consent was obtained. A stereotactic guided biopsy was performed for the focal asymmetry located in the right breast at 10-11 o'clock position middle depth. This was described on the previous mammography report. The skin was prepped in the usual manner. Local anesthetic was administered to the access site. A skin nathanael was made in the breast. The abnormality was approached from the cranial caudal aspect using an upright digital tomographic mammography unit. A 9 gauge biopsy needle was placed adjacent to the abnormality under computer guidance and confirmatory stereotactic mammography images were obtained using a vacuum assisted device. A barrel-shaped titanium clip was inserted into the biopsy cavity. Post procedure mammographic imaging demonstrates the biopsy marking clip at the targeted area. A sterile dressing was applied to the access site. The specimens were sent to the laboratory for pathologic analysis. STATUS: Successful IMPRESSION: Stereotactic guided biopsy for the focal asymmetry in the right breast at 10-11 o'clock middle depth was successful with no apparent post procedure complications. Awaiting pathology report. An addendum will be made for radiology-pathology correlation when the pathology reports become available. BIRADS: RECALL: no message RECALL TYPE: unspecified LETTER SENT: No Letter Interpreted by: Roseann Gutierrez Preliminary Report By: Roseann Gutierrez Electronically signed By Roseann Gutierrez Dictated Date: 09/11/2024 12:29:55 PM Prelim Date: 09/11/2024 12:30:41 PM Sign Date: 09/11/2024 12:30:41 PM Ordering Provider: PAMELA DOMINGUEZ Rehab Spec: ISMAEL MELLO RT (R) (M) Normal [facility] [place] MAMMOGRAM DIAGNOSTIC RIGHT ORIGINAL FROM: [address] [address] PROCEDURE FOR: SHAYY RochaGerson [facility] [address] [place] [address] Home: Work: PID#: [id number] Exam#: [id number] : 1960 Age: 64 TO: PAMELA DOMINGUEZ MD [facility] [address] [address] Fax: NO FAX EXAMINATION: DIAGNOSTIC DIGITAL RIGHT BREAST MAMMOGRAM, 09/11/2024 9:38 am TECHNIQUE: Diagnostic mammography of the right breast was performed. Computer aided detection was utilized in the interpretation of this exam. Current study was also evaluated with a Computer Aided Detection (CAD) system. COMPARISON: September 11, 2024, September 07, 2024, August 23, 2024, July 19, 2023, July 15, 2022 HISTORY: Post biopsy marking clip placement FINDINGS: BREAST DENSITY: There are scattered areas of fibroglandular density. This exam was utilized for confirmation of placement of a barrel-shaped biopsy marking clip in the right breast. The clip is in the center of the lesion. IMPRESSION: Confirmation of placement of a biopsy marking clip in appropriate position. BIRADS: BI-RADS: n/a RECALL: no message RECALL TYPE: unspecified LETTER SENT: No Letter Interpreted by: Roseann Gutierrez Preliminary Report By: Roseann Gutierrez Electronically signed By Roseann Gutierrez Dictated Date: 09/11/2024 10:38:11 AM Prelim Date: 09/11/2024 12:29:49 PM Sign Date: 09/11/2024 12:29:49 PM Ordering Provider: Rehab Spec: ISMAEL MELLO RT (R) (M) Mammogram BI-RADS: n/a Normal [facility] MA MAMMOGRAM DIAGNOSTIC RIGH T W/TOMOon 09-07-2024 [place] MAMMOGRAM DIAGNOSTIC RIGHT W/EL ORIGINAL FROM: [facility] [address] [place] [address] PROCEDURE FOR: SHAYY BRADLEY [address] [place] [address] Home: Work: PID#: [id number] Exam#: [id number] : 1960 Age: 64 TO: PAMELA DOMINGUEZ MD [facility] [address] [address] Fax: NO FAX EXAMINATION: DIAGNOSTIC DIGITAL RIGHT BREAST MAMMOGRAM WITH TOMOSYNTHESIS, 09/07/2024 8:20 am TECHNIQUE: Diagnostic mammography of the right breast was performed with tomosynthesis. 2D standard and 3D tomosynthesis combination imaging performed through the right breast. Computer aided detection was utilized in the interpretation of this exam. Current study was also evaluated with a Computer Aided Detection (CAD) system. COMPARISON: 08/23/2024 HISTORY: ORDERING SYSTEM PROVIDED HISTORY: Reason for Exam: RT BREAST FOCAL ASYMMETRY FINDINGS: BREAST DENSITY: There are scattered areas of fibroglandular density. The 8 mm focal asymmetry right breast 10-11 o'clock middle depth is confirmed on the additional images. No significant masses, calcifications, or other findings. IMPRESSION: 8 mm focal asymmetry is confirmed on the additional images. An ultrasound will be performed today and will be reported separately. Elisa Fleming risk calculations, generated with the history provided, report this patient's 10 year risk and lifetime risk for developing breast cancer at 4.8% and 10.3%, respectively. Based on this assessment tool, if the patient's calculated lifetime risk is below 20%, then the patient is considered at average risk for developing breast cancer. If the patient's calculated lifetime risk is at or above 20%, then the patient is considered high risk for developing breast cancer and may be a candidate for supplemental breast MRI screening in addition to annual mammographic screening per the [employer]. BIRADS: BI-RADS: 0: Incomplete: Need Additional Imaging Evaluation RECALL: immediate RECALL TYPE: US LETTER SENT: Abnormal-Needs additional work up BI-RADS 0 Interpreted by: Serenity Ibrahim MD Preliminary Report By: Serenity Ibrahim MD Electronically signed By Serenity Ibrahim MD Dictated Date: 09/07/2024 8:44:41 AM Prelim Date: 09/07/2024 8:49:18 AM Sign Date: 09/07/2024 8:49:18 AM Ordering Provider: PAMELA DOMINGUEZ Rehab Spec: BROOKLYN CROSS RT(R)(M) letter sent: Abnormal-Needs additional work up BI-RADS 0 Mammogram BI-RADS: 0 Indeterminate Normal [facility] US BREAST RIGHT LIMITEDon US BREAST RIGHT LIMITED ORIGINAL FROM: [place] [address] PROCEDURE FOR: SHAYY BRADLEY [address] [place] [id number] Home: Work: PID#: [id number] Exam#: [id number] : 1960 Age: 64 TO: PAMELA DOMINGUEZ MD [facility] [address] [address] Fax: NO FAX EXAMINATION: ULTRASOUND OF THE RIGHT BREAST 09/07/2024 8:20 am TECHNIQUE: Color flow and kaplan scale targeted ultrasound of the right breast were performed. Permanently stored images were reviewed. COMPARISON: 09/07/2024, 08/23/2024, 07/19/2023, 07/15/2022, 04/10/2021 mammograms. HISTORY: ORDERING SYSTEM PROVIDED HISTORY: Reason for Exam: RT BREAST FOCAL ASYMMETRY FINDINGS: There are no significant sonographic findings to correlate with the mammographic findings. IMPRESSION: There are no significant sonographic findings to correlate with the mammographic findings. Since the mammographic lesion is suspicious for malignancy. A stereotactic biopsy is recommended. Elisa Gerard risk calculations, generated with the history provided, report this patient's 10 year risk and lifetime risk for developing breast cancer at 4.8% and 10.3%, respectively. Based on this assessment tool, if the patient's calculated lifetime risk is below 20%, then the patient is considered at average risk for developing breast cancer. If the patient's calculated lifetime risk is at or above 20%, then the patient is considered high risk for developing breast cancer and may be a candidate for supplemental breast MRI screening in addition to annual mammographic screening per the [employer]. BIRADS: BI-RADS: 4: Suspicious RECALL: immediate RECALL TYPE: Biopsy followup LETTER SENT: Biopsy Recommended BI-RADS 4 and 5 Interpreted by: Serenity Ibrahim MD Preliminary Report By: Serenity Ibrahim MD Electronically signed By Serenity Ibrahim MD Dictated Date: 09/07/2024 9:11:13 AM Prelim Date: 09/07/2024 9:24:38 AM Sign Date: 09/07/2024 9:24:38 AM Ordering Provider: PAMELA DOMINGUEZ Rehab Spec: DENISE YANG RT(R)(M), RDMS letter sent: Biopsy Recommended BI-RADS 4 and 5 Ultrasound BI-RADS: 4 Suspicious for malignancy Normal [facility] MAMMOGRAM SCREENING BILAT ERAL W/TOMOon 08-23-2024 [place] MAMMOGRAM SCREENING BILATERAL W/EL ORIGINAL FROM: [facility] [address] [place] [address] PROCEDURE FOR: SHAYY BRADLEY [address] [place] [address] Home: Work: PID#: [id number] Exam#: [id number] : 1960 Age: 64 TO: PAMELA DOMINGUEZ MD [facility] [address] [place], [place] [address] Fax: NO FAX EXAMINATION: SCREENING DIGITAL BILATERAL MAMMOGRAM WITH TOMOSYNTHESIS, 08/23/2024 7:31 am TECHNIQUE: Screening mammography of the bilateral breasts was performed with tomosynthesis. 2D standard and 3D tomosynthesis combination imaging performed through both breasts in the MLO and CC projection. Computer aided detection was utilized in the interpretation of this exam. COMPARISON: 07/19/2023 HISTORY: Breast cancer screening. FINDINGS: BREAST DENSITY: There are scattered areas of fibroglandular density. There is an 8 mm developing focal asymmetry in the right breast at 10-11 o'clock middle depth. There are no other significant masses, calcifications, or other findings. IMPRESSION: The 8 mm developing focal asymmetry in the right breast at 10-11 o'clock is indeterminate. Additional views with spot compression tomosynthesis in the CC and MLO projections along with a regular full field ML view are recommended. If a mass is confirmed, then an ultrasound will be recommended. We will contact the patient to arrange for the exam. Tyrjorge Gutierrezzick risk calculations, generated with the history provided, report this patient's 10 year risk and lifetime risk for developing breast cancer at 4.8% and 10.3%, respectively. Based on this assessment tool, if the patient's calculated lifetime risk is below 20%, then the patient is considered at average risk for developing breast cancer. If the patient's calculated lifetime risk is at or above 20%, then the patient is considered high risk for developing breast cancer and may be a candidate for supplemental breast MRI screening in addition to annual mammographic screening per the [employer]. I have personally reviewed the images of this examination and agree with the resident's findings and interpretation. BIRADS: BI-RADS: 0: Incomplete: Need Additional Imaging Evaluation RECALL: immediate RECALL TYPE: Mammo+US LETTER SENT: Abnormal-Needs additional work up BI-RADS 0 Interpreted by: Oziel Warren MD Preliminary Report By: Pamela Sahu Electronically signed By Oziel Warren MD Dictated Date: 08/23/2024 1:38:08 PM Prelim Date: 08/23/2024 5:21:03 PM Sign Date: 08/23/2024 5:21:03 PM Ordering Provider: PAMELA DOMINGUEZ Rehab Spec: NICOLASA SAHU RT(R)(M) letter sent: Abnormal-Needs additional work up BI-RADS 0 Mammogram BI-RADS: 0 Indeterminate Normal [facility] MA MAMMOGRAM SCREENING BILAT ERAL W/TOMOon 07-22-2023 MA MAMMOGRAM SCREENING BILATERAL W/EL ORIGINAL FROM: [facility] [address] [place] [address] PROCEDURE FOR: SHAYY BRADLEY [address] [place] [address] Home: Work: PID#: [id number] Exam#: [id number] : 1960 Age: 63 TO: PAMELA DOMINGUEZ MD [facility] [address] [address] Fax: NO FAX EXAMINATION: SCREENING DIGITAL BILATERAL MAMMOGRAM WITH TOMOSYNTHESIS, 07/19/2023 2:15 pm TECHNIQUE: Screening mammography of the bilateral breasts was performed with tomosynthesis. 2D standard and 3D tomosynthesis combination imaging performed through both breasts in the MLO and CC projection. Computer aided detection was utilized in the interpretation of this exam. COMPARISON: July 15, 2022, April 10, 2021 HISTORY: Breast cancer screening. FINDINGS: BREAST DENSITY: Scattered fibroglandular tissue Benign calcifications are seen bilaterally. There are no significant masses or calcifications. IMPRESSION: No mammographic evidence of malignancy. Continued screening with annual mammograms is recommended. Elisa Fleming risk calculations, generated with the history provided, report this patient's 10 year risk and lifetime risk for developing breast cancer at 5.7% and 12.5%, respectively. Based on this assessment tool, if the patient's calculated lifetime risk is below 20%, then the patient is considered at average risk for developing breast cancer. If the patient's calculated lifetime risk is at or above 20%, then the patient is considered high risk for developing breast cancer and may be a candidate for supplemental breast MRI screening in addition to annual mammographic screening per the [place] [employer]. BIRADS: MAMMOGRAM BI-RADS: 2: Benign finding RECALL: 1 year screening RECALL TYPE: mammo LETTER SENT: Normal BI-RADS 1 and 2 Interpreted by: Roseann Gutierrez Preliminary Report By: Roseann Gutierrez Electronically signed By Roseann Gutierrez Dictated Date: 07/22/2023 11:19:43 AM Prelim Date: 07/22/2023 11:28:59 AM Sign Date: 07/22/2023 11:28:59 AM Ordering Provider: PAMELA DOMINGUEZ Rehab Spec: LUCIANA KOTHARI(R)(M) letter sent: Normal BI-RADS 1 and 2 Mammogram BI-RADS: 2 Benign Normal [facility] Encounters Encounter Date Encounter Type Care Provider Facility Start: 12-28-2024 End: 12-28-2024 ambulatory PAMELA DOMINGUEZ Facility:A Start: 12-14-2024 End: 12-14-[address] Pamela Dominguez MD Work Phone: -[facility] Start: 12-14-2024 End: 12-14-[address] Wandy Mejias MD [facility] [place] Work Phone: Start: 12-14-2024 End: 12-14-2024 ambulatory Pamela Dominguez Facility:[facility] Start: 12-10-2024 ambulatory ANIRUDH HODGSON acility:A Start: 11-20-2024 End: 11-20-2024 ambulatory PAMELA DOMINGUEZ MD Facility:A Start: 11-20-2024 End: 11-20-2024 Patient encounter procedure ELLE LU MD [facility] Start: 11-16-2024 End: 11-16-2024 ambulatory PAMELA DOMINGUEZ MD Facility:A Start: 11-16-2024 End: 11-16-2024 Patient encounter procedure ANIRUDH LOPEZ DO [facility] Start: 11-08-2024 End: 11-08-2024 ambulatory PAMELA DOMINGUEZ MD Facility:A Start: 11-08-2024 End: 11-08-2024 SAME DAY STAY [facility] R [facility]OTIC [facility] [employer] [facility] Start: 10-31-2024 End: 10-31-2024 ambulatory PAMELA DOMINGUEZ MD Facility:A Start: 10-31-2024 End: 10-31-2024 Patient encounter procedure [facility] Start: 10-30-2024 ambulatory PAMELA DOMINGUEZ MD F acility:A Start: 10-16-2024 End: 10-16-2024 ambulatory PAMELA DOMINGUEZ MD Facility:A Start: 10-16-2024 End: 10-16-2024 SAME DAY STAY [facility]H [facility] Start: 10-11-2024 End: 10-11-2024 ambulatory ANIRUDH R KLENOTIC DO Facility:A Start: 10-11-2024 End: 10-11-2024 Patient encounter procedure ANIRUDH R KLENOTIC DO [facility] Start: 10-11-2024 End: 10-11-2024 Admission to establishment ANIRUDH R [facility]LENOTIC [facility] Start: 10-11-2024 End: 10-11-2024 ambulatory PAMELA DOMINGUEZ MD Facility:A Start: 09-26-2024 End: 09-26-2024 ambulatory ANIRUDH R KLENOTIC DO Facility:A Start: 09-26-2024 End: 09-26-2024 Patient encounter procedure ANIRUDH R KLENOTIC DO [facility] Start: 09-11-2024 End: 09-11-2024 ambulatory PAMELA DOMINGUEZ MD Facility:A Start: 09-11-2024 End: 09-11-2024 Patient encounter procedure PAMELA DOMINGUEZ MD [facility] Start: 09-07-2024 End: 09-07-2024 ambulatory PAMELA DOMINGUEZ MD Facility:A Start: 09-07-2024 End: 09-07-2024 Patient encounter procedure PAMELA DOMINGUEZ MD [facility] Start: 08-23-2024 End: 08-23-2024 ambulatory PAMELA DOMINGUEZ Facility:A Start: 07-19-2023 End: 07-20-2023 ambulatory PAMELA DOMINGUEZ MD Facility:A Procedures Date Procedure Procedure Detail Performing Clinician Start: 12-14-[address] [place] Dominguez MD Work Phone: Comment on above: Performed at: [address] Director: Asim Keller PhD, Phone: [phone] Start: 12-14-2024 Hep[address] C antibody measurement Dr. Pamela Dominguez MD Work Phone: Comment on above: Reactive: Presumptiv e evidence of antibodies to HCV. Follow CDC recommendations for supplemental testing.Non-Reactive: Antibodies to HCV were not detected; does not exclude the possibility of exposure to HCVReactive Results are presumptive evidence of antibodies to HCV. Follow CDC recommendations for supplemental testing.Order confirmation testing: HCV Quant by PCR testing - HCVPCR #[id number] Non Reactive: < 0.8 Equivocal: >/= 0.8 to < 1.0 Reactive: >/= 1.0The CDC requires that a reactive/equivocal HCV antibody result be sent out for confirmation. HCV Quant by PCR testing. Start: 12-14-2024 Plain radiography of pelvis Dr. Pamela Dominguez MD Work Phone: Start: 12-14-2024 End: 12-14-2024 Plain x-ray of hand Dr. Pamela Dominguez MD Work Phone: Start: 06-24-2025 Lumpectomy of right breast ELLE LU MD Start: 03-21-2022 Cataract (disorder) CHR ILA DOMINGUEZ MD Comment on above: BOTH EYES section PAMELA DOMINGUEZ MD Colonoscopy ANIRUDH KLENOTI C DO Deviated nasal septu m (disorder) PAMELA DOMINGUEZ MD Extraction of wisdom tooth E VELINE KASHMIRIC DO Immunizations Immunization Date Immunization Notes Care Provider Fa cility 04-15-2024 SARS-CoV-2 (COVID-19 ) mRNAMUL.ORD![id number] PAMELA DOMINGUEZ MD [facility] Pamela Dominguez MD 12-24-2023 influenza virus vaccine, unspecified formulation PAMELA DOMINGUEZ MD [facility] Pamela Dominguez MD 12-24-2023 SARS-CoV-2 (COVID-19 ) mRNAMUL.ORD![id number] PAMELA DOMINGUEZ MD [facility] Pamela Dominguez MD 09-23-2023 SARS-CoV-2 (COVID-19 ) mRNAMUL.ORD![id number] PAMELA DOMINGUEZ MD [facility] Pamela Dominguez MD 06-11-2023 SARS-CoV-2 (COVID-19 ) mRNAMUL.ORD![id number] PAMELA DOMINGUEZ MD [facility] Pamela Dominguez MD 06-11-2023 tetanus toxoid, redu linnette diphtheria toxoid, and acellular pertussis vaccine, adsorbed PAMELA DOMINGUEZ MD [facility] Pamela Dominguez MD 12-14-2022 influenza virus vaccine, unspecified formulation PAMELA DOMINGUEZ MD [facility] Pamela Dominguez MD 12-14-2022 pneumococcal 20-ga nt conjugate vaccine PAMELA DOMINGUEZ MD [facility] Pamela Dominguez MD 12-14-2022 RSV vaccine, preF A-preF B, recombinant PAMELA DOMINGUEZ MD [facility] Pamela Dominguez MD 12-14-2022 SARS-CoV-2 (COVID-19 ) mRNAMUL.ORD![id number] PAMELA DOMINGUEZ MD [facility] Pamela Dominguez MD 11-05-2021 influenza, injectabl e, quadrivalent, contains preservative; Translations: [Flucelvax PF Quadrivalent ] PAMELA DOMINGUEZ MD [facility] 08-30-2021 SARS-CoV-2 mRNA (yiynbzueasu-xzgt-mzysu se) vaccine PAMELA DOMINGUEZ MD [facility] Pamela Dominguez MD 04-22-2021 SARS-CoV-2 mRNA (cffvxktpcgy-waeu-gkorj se) vaccine PAMELA DOMINGUEZ MD [facility] Pamela Dominguez MD 11-23-2020 influenza virus vaccine, unspecified formulation PAMELA DOMINGUEZ MD [facility] 08-11-2020 zoster vaccine recombinant PAMELA DOMINGUEZ MD [facility] 05-23-2020 SARS-CoV-2 (COVID-19 ) Ad26 vaccine, recombinant PAMELA DOMINGUEZ MD [facility] 04-24-2020 zoster vaccine recombinant PAMELA DOMINGUEZ MD [facility] 02-07-2020 influenza virus vaccine, unspecified formulation PAMELA DOMINGUEZ MD [facility] 12-08-2018 Influenza, injectabl e, Madin Sujey Canine Kidney, preservative free, quadrivalent; Translations: [Flucelvax PF Quadrivalent ] PAMELA DOMINGUEZ MD [facility] 02-23-2017 influenza virus vaccine, unspecified formulation PAMELA DOMINGUEZ MD [facility] Pamela Dominguez MD 02-23-2017 pneumococcal polysaccharide vaccine, 23 valent PAMELA DOMINGUEZ MD [facility] 12-02-2015 influenza virus vaccine, unspecified formulation PAMELA DOMINGUEZ MD [facility] Pamela Dominguez MD 12-26-2014 influenza virus vaccine, unspecified formulation PAMELA DOMINGUEZ MD [facility] Pamela Dominguez MD 01-04-2014 influenza virus vaccine, unspecified formulation PAMELA DOMINGUEZ MD [facility] Pamela Dominguez MD 12-23-2011 tetanus and diphther ia toxoids, adsorbed, preservative free, for adult use (5 Lf of tetanus toxoid and 2 Lf of diphtheria toxoid) PAMELA DOMINGUEZ MD [facility] Payers Date Payer Category Payer Self-pay 2024 Private Health Insurance [id number] 2023 Unknown [id number] 1960 Unknown [id number] 1960 Unknown [id number] 1960 Unknown [id number] 1960 Unknown [id number] 840.1.621057.3.579.2. 1960 Unknown [id number] 1960 Unknown [id number] 2.16. 840.1.754305.3.579.2.627 1960 Unknown [id number] 2.16. 840.1.157636.3.579.2.627 1960 Unknown [id number] 2.16. 840.1.578930.3.579.2.627 1960 Unknown [id number] 2.16. 840.1.560420.3.579.2.627 1960 Unknown [id number] 2.16. 840.1.772043.3.579.2.7 1960 Unknown [id number] 2.16. 840.1.880852.3.579.2.627 1960 Unknown [id number] 2.16. 840.1.368762.3.579.2.7 1960 Unknown [id number] 2.16. 840.1.522939.3.579.2.627 1960 Unknown [id number] 2.16. 840.1.650393.3.579.2.7 1960 Unknown [id number] 2.16. 840.1.278010.3.579.2.627 Unknown [id number] 2.16.8 40.1.143201.3.579.2.462 Social History Date Type Detail Facility Start: 12-08-2018 Tobacco smoking status Never s moked tobacco (finding) [facility] Sexual Orientation [facility] Start: 1960 Sex Assigned At Female [facility] Start: 05-24-2019 Sex Female (finding) [facility] Tobacco smoking stat [facility] Unknown if ever smoked [facility] Work Phone: Sex Female [facility] Clinical Notes 09-07-2024 to 12-15-2024 Note Date & Type Note Facility 12-15-2024 Radiology Diagnostic study note [facility] Imaging Services [address] [place], [place] [address] Pelvis 1 or 2 Views MR#: [id number] Acct: [id number] Name: SHAYY BRADLEY Rep #: [id number] : 1960 F 64 From: Omkar Sandra DO PCP: Dr. Pamela Dominguez MD Status: R EG CLI Study:Pelvis 1 or 2 Views Date of Exam: 12/14/24 Exam# [id number] Ordering Dr: Wandy Mejias MD PROCEDURE: PELVIS 1 OR 2 VIEWS 12/14/2024 REASON FOR EXAM: RA TECHNIQUE: Procedure Code: RADPEL Modality: DX Procedure: PELVIS 1 OR 2 VIEWS COMPARISON: None FINDINGS: Hardware: None Bones: There is normal mineralization of the osseous structures. There are no fractures or dislocations. Degenerative changes of the lower lumbar spine are noted. Joints: SI joints and pubic symphysis are unremarkable. Both hip joints are well preserved. Soft tissues: Soft tissues are unremarkable. RAD/Pelvis 1 or 2 Views IMPRESSION: Degenerative changes of the lower lumbar spine, otherwise, unremarkable pelvic study. Reading Location: [facility] CC: Dr. Pamela Dominguez MD; Dr. Wandy Mejias MD ~ Inorganic Chemical Technician: Signed [facility] 12-15-2024 Radiology Diagnostic study note [facility] Imaging Services [address] [place] [address] Hand Min 3 Views MR#: [id number] Acct: [id number] Name: SHAYY BRADLEY Rep #: [id number] : 1960 F 64 From: Omkar Sandra DO PCP: Dr. Pamela Dominguez MD Status: R EG CLI Study:Hand Min 3 Views Date of Exam: Exam# [id number] Ordering Dr: Wandy Mejias MD PROCEDURE: HAND MIN 3 VIEWS 12/14/2024 REASON FOR EXAM: RA TECHNIQUE: Procedure Code: CHELSY Modality: DX Procedure: HAND MIN 3 VIEWS Laterality: Right COMPARISON: None FINDINGS: Bones: Very mild diffuse osteopenia of the osseous structures is noted. There are no fractures or dislocations. Joints: Very mild arthritic changes are seen involving the D IP joints of the 2nd, 3rd and 5th digits. The remaining joints are well preserved. Soft tissues: Soft tissues are unremarkable. RAD/Hand Min 3 Views IMPRESSION: Mild diffuse osteopenia of the osseous structures. 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 Reading Location: [facility] CC: Dr. Pamela Dominguez MD; Dr. Wandy Mejias MD ~ Inorganic Chemical Technician: Signed [facility] [facility] Radiology Diagnostic study note [facility] Imaging Services [address] [place] [address] Hand Min 3 Views MR#: [id number] Acct: [id number] Name: SHAYY BRADLEY Rep #: [id number] : 1960 F 64 From: Omkar Sandra DO PCP: Dr. Pamela Dominguez MD Status: R EG CLI Study:Hand Min 3 Views Date of Exam: Exam# [id number] Ordering Dr: Wandy Mejias MD PROCEDURE: HAND MIN 3 VIEWS 12/14/2024 REASON FOR EXAM: RA TECHNIQUE: Procedure Code: CHELSY Modality: DX Procedure: HAND MIN 3 VIEWS Laterality: Left COMPARISON: None FINDINGS: Bones: There is mild diffuse osteopenia of the osseous structures. There are nofractures or dislocations. Joints: Very mild arthritic changes are seen involving the D IP joints of the 2nd, 3rd, 4th, and 5th digits. The remaining joints are well preserved. Soft tissues: Soft tissues are unremarkable. RAD/Hand Min 3 Views IMPRESSION: Mild diffuse osteopenia of the osseous structures. Very mild osteoarthritic changes involving the D IP joints of the 2nd, 3rd, 4th and 5th digits Reading Location: [facility] CC: Dr. Pamela Dominguez MD; Dr. Wandy Mejias MD ~ Inorganic Chemical Technician: [facility] 11-08-2024 Hospital Discharg e instructions Patient Education 11/08/2024 11:49:01 Breast Biopsy, Care After, [id number] Breast Biopsy, Care After These instructions give you information about caring for yourself after your procedure. Your doctor may also give you more specific instructions. Call your doctor if you have any problems or questions after your procedure. What can I expect after the procedure? After your procedure, it is common to have: Bruising on your breast. Numbness, tingling, or pain near your biopsy site. Follow these instructions at home: Medicines Take dzjk-[id number] and prescription medicines only as told by your doctor. Do not drive for 24 hours if you were given a medicine to help you relax (sedative) during your procedure. Do not drink alcohol while taking pain medicine. Do not drive or use heavy machinery while taking prescription pain medicine. Biopsy site care Follow instructions from your doctor about how to take care of your cut from surgery (incision) or your puncture area. Make sure you: ?Wash your hands with soap and water before you change your bandage (dressing). If you cannot use soap and water, use hand food and beverage attendant. ?Change your bandage as told by your doctor. ?Leave stitches (sutures), skin glue, or skin tape (adhesive strips) in place. They may need to stay in place for 2 weeks or longer. If tape strips get loose and curl up, you may trim the loose edges. Do not remove tape strips completely unless your doctor says it is okay. If you have stitches, keep them dry when you take a bath or a shower. Check your cut or puncture area every day for signs of infection. Check for: ?Redness, swelling, or pain. ?Fluid or blood. ?Warmth. ?Pus or a bad smell. Protect the biopsy area. Do not let the area get bumped. Activity If you had a cut during your procedure, avoid activities that could pull your cut open. These include: ?Stretching. ?Reaching over your head. ?Exercise. ?Sports. ?Lifting anything that weighs more than 3 lb (1.4 kg). Return to your normal activities as told by your doctor. Ask your doctor what activities are safe for you. Managing pain, stiffness, and swelling If told, put ice on the biopsy site to relieve swelling: Put ice in a plastic bag. Place a towel between your skin and the bag. Leave the ice on for 20 minutes, 2 3 times a day. General instructions Continue your normal diet. Wear a good support bra for as long as told by your doctor. Get checked for extra fluid around your lymph nodes (lymphedema) as often as told by your doctor. Keep all follow-up visits as told by your doctor. This is important. Contact a doctor if: You notice any of the following at the biopsy site: ?More redness, swelling, or pain. ?More fluid or blood coming from the site. ?The site feels warm to the touch. ?Pus or a bad smell coming from the site. ?The site breaks open after the stitches or skin tape strips have been removed. You have a rash. You have a fever. Get help right away if: You have more bleeding from the biopsy site. Get help right away if bleeding is more than a small spot. You have trouble breathing. You have red streaks around the biopsy site. Summary After your procedure, it is common to have bruising, numbness, tingling, or pain near the biopsy site. Do not drive or use heavy machinery while taking prescription pain medicine. Wear a good support bra for as long as told by your doctor. If you had a cut during your procedure, avoid activities that may pull the cut open. Ask your doctor what activities are safe for you. This information is not intended to replace advice given to you by your health care provider. Make sure you discuss any questions you have with your health care provider. Document Released: 01/01/2010 Document Revised: 08/24/2018 Document Reviewed: 08/24/2018 [employer] Patient Education 2020 [employer]. 11/08/2024 11:48:53 1- [facility] General Discharge Guidelines (12/03/2022) (CUSTOM) COMFORT SAME DAY SURGERY DISCHARGE INSTRUCTIONS PLEASE FOLLOW THE INSTRUCTIONS BELOW MARKED WITH AN X: __X_Regular Diet: Start with clear liquids, then soup and crackers. Gradually add other foods unless otherwise instructed by your surgeon __X_Drink extra fluids ACTIVTY: __X_Since you have had anesthetic, it would be advisable not to drive, drink alcohol, or make major decisions over the next 24 hours. You may require more rest tonight and tomorrow __X_Do not drive vehicle while taking narcotics and as directed by your Surgeon ____Restrict activity as follows: ____Do not have sexual intercourse. Nothing in the vagina-No tampons or Douching ____No heavy lifting, pushing, or straining ____Elevate operative limb ____Ice as directed __X_Follow all written and verbal instructions given to you by your Doctor ____Other: BATHING/SHOWERING ____Sponge bathe until office visit. ____Sitting in tub of warm water may relieve discomfort ____May tub bathe ____May shower in 24-48 hours with clean linen unless otherwise instructed by your Doctor DRESSING: ____Keep operative area clean and dry ____Check the operative area for signs of bleeding. Apply pressure to the bleeding site if necessary. ____Change drip pad as needed ____Wear scrotal support for comfort WATCH FOR SIGNS OF INFECTION: (Usually appears 36-48 hours after surgery) Increased temperature (101 degrees Fahrenheit or higher) Redness or swelling Increased pain Foul odor or drainage If you have any questions, please call your doctor at the number listed on your follow-up instructions. Follow Up Care 10/31/2024 10:49:19 With:ANIRUDH LOPEZ DO Address: [address] [place] [phone] When: Unknown Comments:Follow-up as scheduled [facility] 11-08-2024 Anesthesiology Consult note Patient: SHAYY BRADLEY Age: 64 years Sex: Female : 1960 Associated Diagnoses: None Author: IRA CHARLES MD Postoperative Information Post Operative Info: Post op day: Post Anesthesia Care Unit. Patient location: PACU. Assessment Postanesthesia assessment Vitals: Vital signs from flowsheet : Vital Signs 11/08/2024 11:30 EDT Temperature Temporal Artery 36.0 DegC Heart Rate Monitored 62 bpm 11/08/2024 11:13 EDT Heart Rate Monitored 68 bpm 11/08/2024 11:13 EDT Temperature Temporal Artery 36.1 DegC Respiratory Rate 16 br/min Systolic Blood Pressure Non-Invasive 153 mmHg HI Diastolic Blood Pressure Non-Invasive 96 mmHg HI 11/08/2024 10:56 EDT Systolic Blood Pressure Non-Invasive 162 mmHg HI Diastolic Blood Pressure Non-Invasive 94 mmHg HI 11/08/2024 10:56 EDT Heart Rate Monitored 76 bpm 11/08/2024 10:56 EDT Respiratory Rate 16 br/min 11/08/2024 10:41 EDT Temperature Temporal Artery 36 DegC Heart Rate Monitored 76 bpm Respiratory Rate 20 br/min Systolic Blood Pressure Non-Invasive 128 mmHg Diastolic Blood Pressure Non-Invasive 87 mmHg 11/08/2024 10:35 EDT Heart Rate Monitored 80 bpm bpm Respiratory Rate - Anes 22 br/min br/min 11/08/2024 10:34 EDT Systolic Blood Pressure Non-Invasive 180 mmHg mmHg Diastolic Blood Pressure Non-Invasive 131 mmHg mmHg 11/08/2024 10:31 EDT Systolic Blood Pressure Non-Invasive 167 mmHg mmHg Diastolic Blood Pressure Non-Invasive 110 mmHg mmHg 11/08/2024 10:30 EDT Heart Rate Monitored 68 bpm bpm Respiratory Rate - Anes 13 br/min br/min 11/08/2024 10:28 EDT Systolic Blood Pressure Non-Invasive 145 mmHg mmHg Diastolic Blood Pressure Non-Invasive 95 mmHg mmHg 11/08/2024 10:25 EDT Heart Rate Monitored 71 bpm bpm Respiratory Rate - Anes 13 br/min br/min Systolic Blood Pressure Non-Invasive 144 mmHg mmHg Diastolic Blood Pressure Non-Invasive 91 mmHg mmHg 11/08/2024 10:22 EDT Systolic Blood Pressure Non-Invasive 131 mmHg mmHg Diastolic Blood Pressure Non-Invasive 85 mmHg mmHg 11/08/2024 10:20 EDT Heart Rate Monitored 74 bpm bpm Respiratory Rate - Anes 14 br/min br/min 11/08/2024 10:19 EDT Systolic Blood Pressure Non-Invasive 135 mmHg mmHg Diastolic Blood Pressure Non-Invasive 80 mmHg mmHg 11/08/2024 10:16 EDT Systolic Blood Pressure Non-Invasive 121 mmHg mmHg Diastolic Blood Pressure Non-Invasive 82 mmHg mmHg 11/08/2024 10:15 EDT Heart Rate Monitored 69 bpm bpm Respiratory Rate - Anes 13 br/min br/min 11/08/2024 10:13 EDT Systolic Blood Pressure Non-Invasive 112 mmHg mmHg Diastolic Blood Pressure Non-Invasive 79 mmHg mmHg 11/08/2024 10:10 EDT Temperature (Route Not Specified) 35.99 DegC DegC Heart Rate Monitored 68 bpm bpm Respiratory Rate - Anes 12 br/min br/min Systolic Blood Pressure Non-Invasive 108 mmHg mmHg Diastolic Blood Pressure Non-Invasive 68 mmHg mmHg 11/08/2024 10:07 EDT Systolic Blood Pressure Non-Invasive 99 mmHg mmHg Diastolic Blood Pressure Non-Invasive 68 mmHg mmHg 11/08/2024 10:05 EDT Temperature (Route Not Specified) 36 DegC DegC Heart Rate Monitored 66 bpm bpm Respiratory Rate - Anes 12 br/min br/min 11/08/2024 10:04 EDT Systolic Blood Pressure Non-Invasive 107 mmHg mmHg Diastolic Blood Pressure Non-Invasive 73 mmHg mmHg 11/08/2024 10:01 EDT Systolic Blood Pressure Non-Invasive 113 mmHg mmHg Diastolic Blood Pressure Non-Invasive 70 mmHg mmHg 11/08/2024 10:00 EDT Temperature (Route Not Specified) 36 DegC DegC Heart Rate Monitored 66 bpm bpm Respiratory Rate - Anes 12 br/min br/min 11/08/2024 9:58 EDT Systolic Blood Pressure Non-Invasive 102 mmHg mmHg Diastolic Blood Pressure Non-Invasive 70 mmHg mmHg 11/08/2024 9:55 EDT Temperature (Route Not Specified) 36.01 DegC DegC Heart Rate Monitored 68 bpm bpm Respiratory Rate - Anes 12 br/min br/min Systolic Blood Pressure Non-Invasive 107 mmHg mmHg Diastolic Blood Pressure Non-Invasive 72 mmHg mmHg 11/08/2024 9:52 EDT Systolic Blood Pressure Non-Invasive 108 mmHg mmHg Diastolic Blood Pressure Non-Invasive 71 mmHg mmHg 11/08/2024 9:50 EDT Temperature (Route Not Specified) 36.03 DegC DegC Heart Rate Monitored 67 bpm bpm Respiratory Rate - Anes 11 br/min br/min 11/08/2024 9:49 EDT Systolic Blood Pressure Non-Invasive 122 mmHg mmHg Diastolic Blood Pressure Non-Invasive 72 mmHg mmHg 11/08/2024 9:46 EDT Systolic Blood Pressure Non-Invasive 100 mmHg mmHg Diastolic Blood Pressure Non-Invasive 67 mmHg mmHg 11/08/2024 9:45 EDT Temperature (Route Not Specified) 36.07 DegC DegC Heart Rate Monitored 69 bpm bpm Respiratory Rate - Anes 10 br/min br/min 11/08/2024 9:43 EDT Systolic Blood Pressure Non-Invasive 95 mmHg mmHg Diastolic Blood Pressure Non-Invasive 67 mmHg mmHg 11/08/2024 9:40 EDT Temperature (Route Not Specified) 36.13 DegC DegC Heart Rate Monitored 68 bpm bpm Respiratory Rate - Anes 10 br/min br/min Systolic Blood Pressure Non-Invasive 109 mmHg mmHg Diastolic Blood Pressure Non-Invasive 65 mmHg mmHg 11/08/2024 9:37 EDT Systolic Blood Pressure Non-Invasive 114 mmHg mmHg Diastolic Blood Pressure Non-Invasive 74 mmHg mmHg 11/08/2024 9:35 EDT Temperature (Route Not Specified) 36.17 DegC DegC Heart Rate Monitored 68 bpm bpm Respiratory Rate - Anes 8 br/min br/min 11/08/2024 9:34 EDT Systolic Blood Pressure Non-Invasive 117 mmHg mmHg Diastolic Blood Pressure Non-Invasive 78 mmHg mmHg 11/08/2024 9:31 EDT Systolic Blood Pressure Non-Invasive 118 mmHg mmHg Diastolic Blood Pressure Non-Invasive 80 mmHg mmHg 11/08/2024 9:30 EDT Temperature (Route Not Specified) 36.22 DegC DegC Heart Rate Monitored 73 bpm bpm Respiratory Rate - Anes 7 br/min br/min 11/08/2024 9:28 EDT Systolic Blood Pressure Non-Invasive 129 mmHg mmHg Diastolic Blood Pressure Non-Invasive 85 mmHg mmHg 11/08/2024 9:25 EDT Temperature (Route Not Specified) 36.21 DegC DegC Heart Rate Monitored 67 bpm bpm Respiratory Rate - Anes 5 br/min br/min Systolic Blood Pressure Non-Invasive 128 mmHg mmHg Diastolic Blood Pressure Non-Invasive 87 mmHg mmHg 11/08/2024 9:23 EDT Systolic Blood Pressure Non-Invasive 127 mmHg mmHg Diastolic Blood Pressure Non-Invasive 90 mmHg mmHg 11/08/2024 9:21 EDT Systolic Blood Pressure Non-Invasive 192 mmHg mmHg Diastolic Blood Pressure Non-Invasive 171 mmHg mmHg 11/08/2024 9:20 EDT Heart Rate Monitored 79 bpm bpm Respiratory Rate - Anes 20 br/min br/min 11/08/2024 9:19 EDT Systolic Blood Pressure Non-Invasive 185 mmHg mmHg Diastolic Blood Pressure Non-Invasive 98 mmHg mmHg 11/08/2024 9:16 EDT Systolic Blood Pressure Non-Invasive 139 mmHg mmHg Diastolic Blood Pressure Non-Invasive 100 mmHg mmHg 11/08/2024 9:15 EDT Heart Rate Monitored 81 bpm bpm Respiratory Rate - Anes 0 br/min br/min 11/08/2024 9:14 EDT Systolic Blood Pressure Non-Invasive 121 mmHg mmHg Diastolic Blood Pressure Non-Invasive 93 mmHg mmHg 11/08/2024 9:13 EDT Systolic Blood Pressure Non-Invasive 158 mmHg mmHg Diastolic Blood Pressure Non-Invasive 94 mmHg mmHg 11/08/2024 9:10 EDT Respiratory Rate - Anes 0 br/min br/min 11/08/2024 6:29 EDT Temperature Temporal Artery 35.8 DegC Peripheral Pulse Rate 73 bpm Respiratory Rate 18 br/min Systolic Blood Pressure Non-Invasive 131 mmHg Diastolic Blood Pressure Non-Invasive 79 mmHg , Oxygen Therapy : Oxygen Therapy & Oxygenation Information 11/08/2024 11:13 EDT Oxygen Saturation 96 % 11/08/2024 11:13 EDT Oxygen Therapy Room air 11/08/2024 10:56 EDT Oxygen Saturation 98 % 11/08/2024 10:56 EDT Oxygen Therapy Room air 11/08/2024 10:41 EDT Oxygen Therapy Simple mask Oxygen Saturation 98 % Oxygen Flow Rate 7 L/min 11/08/2024 10:35 EDT Oxygen Saturation 99 % % 11/08/2024 10:30 EDT Oxygen Saturation 94 % % 11/08/2024 10:25 EDT Oxygen Saturation 96 % % 11/08/2024 10:20 EDT Oxygen Saturation 95 % % 11/08/2024 10:15 EDT Oxygen Saturation 94 % % 11/08/2024 10:05 EDT Oxygen Saturation 97 % % 11/08/2024 10:00 EDT Oxygen Saturation 96 % % 11/08/2024 9:55 EDT Oxygen Saturation 96 % % 11/08/2024 9:50 EDT Oxygen Saturation 97 % % 11/08/2024 9:35 EDT Oxygen Saturation 97 % % 11/08/2024 9:30 EDT Oxygen Saturation 97 % % 11/08/2024 9:25 EDT Oxygen Saturation 97 % % 11/08/2024 9:20 EDT Oxygen Saturation 99 % % 11/08/2024 9:15 EDT Oxygen Saturation 100 % % 11/08/2024 6:29 EDT Oxygen Therapy Room air Oxygen Saturation 97 % . Mental status: at preoperative baseline. Respiratory function: respirations are non-labored, Stable. Respiratory support: none. CV function: Stable. Cardiovascular support: none. Pain: Satisfactory. Nausea status: Satisfactory. Postoperative hydration status: within normal limits. Notes: Patient is sufficiently recovered from anesthesia to participate in the evaluation. No follow-up care needed. No complications post-anesthesia.. Digitally Signed by IRA CHARLES MD on 11/08/2024 01:19 PM [facility] 11-08-2024 Summary of episod e note Discharge Instructions Thank you for allowing [facility] to assist you with your healthcare needs. The following is important discharge information regarding your hospital visit. Your Care Team PAMELA DOMINGUEZ MD Your Diagnosis Breast cancer of upper-outer quadrant of right female breast What to do next Scheduled Follow-Up Appointments Appointment Type When With Where Contact Information StatusBS OV Post Op 11/16/2024 01:00 PM EDT ANIRUDH LOPEZ DO [facility] Confirmed HEM ONC New Patient 11/20/2024 03:00 PM EDT ELLE LU MD [facility] Confirmed PC OV Follow Up 05/07/2025 03:30 PM EST PAMELA DOMINGUEZ MD [facility] Paemla Dominguez MD Confirmed Follow Up Appointments Follow Up with ANIRUDH LOPEZ DO Where:[address] [place] [phone] Additional Information: Follow-up as scheduled The Following Activity and Diet Have Been Ordered for You Discharge Activity - Ordered -- NO activity restrictions, Follow the post-operative/post-procedure activity instructions provided by your physician's office., 11/08/24 11:48:00 EDT Discharge Diet - Ordered -- Follow the post-operative/post-procedure diet instructions provided by your physician's office., 11/08/24 11:48:00 EDT The Following Equipment Has Been Ordered for You Discharge Home Equipment Discharge Wound Care - Ordered -- Follow the post-operative/post-procedure wound care instructions provided by your physician's office., 11/08/24 11:48:00 EDT Allergies Tuberculin Zoey Test Positive Medications Please ask your primary doctor or pharmacist before taking any other medication not listed, including over the counter drugs, herbal medications, vitamins and or supplements as they may interact with your home medications. What How Much When Instructions Last Dose Unchanged albuterol (Ventolin HFA MDI (90 mcg/ inh) inhalation aerosol) 1 puff(s) by inhalation Every 6 hours Unchanged ascorbic acid (Vitamin C 250 mg oral tablet) 2 tab(s) by mouth Once a day (in the morning) Unchanged atorvastatin (atorvastatin 10 mg oral tablet) 1 tab(s) by mouth Once a day Unchanged chondroitin-glucosamine (chondroitin-glucosamine 200 mg-250 mg oral capsule) 1 cap by mouth Two (2) times a day Unchanged cloNIDine (cloNIDine 0.2 mg oral tablet) 1 tab(s) by mouth Daily at bedtime Unchanged diclofenac topical (Voltaren 1% topical gel) 2 gram(s) Topical Two (2) times a day as needed for as needed for pain Unchanged folic acid (folic acid 1 mg oral tablet) 1 tab(s) by mouth Once a day Unchanged lidocaine topical (lidocaine 5% topical patch) 1 patch(es) Topical Once a day remove patches after 12 hours Unchanged lisinopril (lisinopril 10 mg oral tablet) 1 tab(s) by mouth Two (2) times a day Unchanged loratadine (loratadine 10 mg oral capsule) 1 cap by mouth Daily at bedtime Unchanged LORazepam (LORazepam 1 mg oral tablet) 1 tab(s) by mouth TAKE 1 TABLET THE NIGHT BEFORE APPOINTMENT THEN TAKE 1 TABLET AN HOUR BEFORE APPOINTMENT Unchanged methotrexate (methotrexate 2.5 mg oral tablet) 8 tab(s) by mouth Every Tuesday Unchanged multivitamin (Hair, Skin, & Nails Gummies oral tablet, chewable) 2 tab(s) Chewed Once a day (in the morning) Unchanged multivitamin (Multivitamin) 1 tab(s) by mouth Once a day (in the morning) Unchanged omega-3 polyunsaturated fatty acids (Fish Oil 1000 mg oral capsule) 1 cap by mouth Once a day (in the morning) Unchanged predniSONE (predniSONE 2.5 mg oral tablet) 1 tab(s) by mouth Once a day (in the morning) TAKE 1 OR 2 OR 3 TABLETS BY MOUTH DAILY Unchanged ubiquinone (Co-Q10 200 mg oral capsule) 1 cap by mouth Once a day (in the morning) Unchanged venlafaxine (venlafaxine 75 mg oral capsule, extended release) 1 cap by mouth Once a day Please take this list to your next doctor s visit. Bring all medications you take, including over the counter medications, herbals and other supplements with you to your doctor s visit. Patients and families are reminded to discard old lists and to update any records with all medication providers or retail pharmacies. Education Materials Breast Biopsy, Care After These instructions give you information about caring for yourself after your procedure. Your doctor may also give you more specific instructions. Call your doctor if you have any problems or questions after your procedure. What can I expect after the procedure? After your procedure, it is common to have: Bruising on your breast. Numbness, tingling, or pain near your biopsy site. Follow these instructions at home: Medicines Take ozai-zrk-doqaaot and prescription medicines only as told by your doctor. Do not drive for 24 hours if you were given a medicine to help you relax (sedative) during your procedure. Do not drink alcohol while taking pain medicine. Do not drive or use heavy machinery while taking prescription pain medicine. Biopsy site care Follow instructions from your doctor about how to take care of your cut from surgery (incision) or your puncture area. Make sure you: ? Wash your hands with soap and water before you change your bandage (dressing). If you cannot use soap and water, use hand food and beverage attendant. ? Change your bandage as told by your doctor. ? Leave stitches (sutures), skin glue, or skin tape (adhesive strips) in place. They may need to stay in place for 2 weeks or longer. If tape strips get loose and curl up, you may trim the loose edges. Do not remove tape strips completely unless your doctor says it is okay. If you have stitches, keep them dry when you take a bath or a shower. Check your cut or puncture area every day for signs of infection. Check for: ? Redness, swelling, or pain. ? Fluid or blood. ? Warmth. ? Pus or a bad smell. Protect the biopsy area. Do not let the area get bumped. Activity If you had a cut during your procedure, avoid activities that could pull your cut open. These include: ? Stretching. ? Reaching over your head. ? Exercise. ? Sports. ? Lifting anything that weighs more than 3 lb (1.4 kg). Return to your normal activities as told by your doctor. Ask your doctor what activities are safe for you. Managing pain, stiffness, and swelling If told, put ice on the biopsy site to relieve swelling: Put ice in a plastic bag. Place a towel between your skin and the bag. Leave the ice on for 20 minutes, 2 3 times a day. General instructions Continue your normal diet. Wear a good support bra for as long as told by your doctor. Get checked for extra fluid around your lymph nodes (lymphedema) as often as told by your doctor. Keep all follow-up visits as told by your doctor. This is important. Contact a doctor if: You notice any of the following at the biopsy site: ? More redness, swelling, or pain. ? More fluid or blood coming from the site. ? The site feels warm to the touch. ? Pus or a bad smell coming from the site. ? The site breaks open after the stitches or skin tape strips have been removed. You have a rash. You have a fever. Get help right away if: You have more bleeding from the biopsy site. Get help right away if bleeding is more than a small spot. You have trouble breathing. You have red streaks around the biopsy site. Summary After your procedure, it is common to have bruising, numbness, tingling, or pain near the biopsy site. Do not drive or use heavy machinery while taking prescription pain medicine. Wear a good support bra for as long as told by your doctor. If you had a cut during your procedure, avoid activities that may pull the cut open. Ask your doctor what activities are safe for you. This information is not intended to replace advice given to you by your health care provider. Make sure you discuss any questions you have with your health care provider. Document Released: 01/01/2010 Document Revised: 08/24/2018 Document Reviewed: 08/24/2018 [employer] Patient Education 2020 [employer] COMFORT SAME DAY SURGERY DISCHARGE INSTRUCTIONS PLEASE FOLLOW THE INSTRUCTIONS BELOW MARKED WITH AN X: __X_Regular Diet: Start with clear liquids, then soup and crackers. Gradually add other foods unless otherwise instructed by your surgeon __X_Drink extra fluids ACTIVTY: __X_Since you have had anesthetic, it would be advisable not to drive, drink alcohol, or make major decisions over the next 24 hours. You may require more rest tonight and tomorrow __X_Do not drive vehicle while taking narcotics and as directed by your Surgeon ____Restrict activity as follows: ____Do not have sexual intercourse. Nothing in the vagina-No tampons or Douching ____No heavy lifting, pushing, or straining ____Elevate operative limb ____Ice as directed __X_Follow all written and verbal instructions given to you by your Doctor ____Other: BATHING/SHOWERING ____Sponge bathe until office visit. ____Sitting in tub of warm water may relieve discomfort ____May tub bathe ____May shower in 24-48 hours with clean linen unless otherwise instructed by your Doctor DRESSING: ____Keep operative area clean and dry ____Check the operative area for signs of bleeding. Apply pressure to the bleeding site if necessary. ____Change drip pad as needed ____Wear scrotal support for comfort WATCH FOR SIGNS OF INFECTION: (Usually appears 36-48 hours after surgery) Increased temperature (101 degrees Fahrenheit or higher) Redness or swelling Increased pain Foul odor or drainage If you have any questions, please call your doctor at the number listed on your follow-up instructions. Additional Information VACCINATE! IT SAVES LIVES! Members of the community who have not yet received the COVID-19 vaccine and would like to receive it can visit one of [facility] vaccine clinics. There are many vaccine clinic locations within the [facility]. For locations and available times, please visit [email or web address] [email or web address] It is important to note that some COVID mobile vaccine clinics are held outdoors and may be canceled in rainy or stormy conditions. To learn more about pediatric vaccinations (ages 5-11), we invite you to visit the [facility] webpage. [email or web address].[email or web address].org/ pages/[email or web address]-Phzje-Bywvqicsnpb-Fr vmjciibk-Ibsol-Vpqmlhame.html To learn more about the COVID-19 vaccine, we invite you to visit the CDC website for a list of frequently asked questions.https://www.cdc.gov/c oronavirus/2019-ncov/vaccines/f aq.html [facility] Patient [facility] Access Instructions: Stay connected with your healthcare team and access your personal medical information anytime with the [facility] Patient Portal. Please follow the directions below to create your [facility] account: 1.Access the email account you provided upon registration to the hospital/physician office.2.Look for an invitation email from [facility].3.Open the email and access the invitation link: Accept Invitation to [facility].4.Fill in the required gee to create your account. To access your account, visit [email or web address]. Click the blue button labeled "Access Patient Portal" and then log in with the username and password that you created in the steps above. You will be able to view your test results, lab results, a summary of your visits, upcoming appointments and more. There is also a convenient messaging option where you can send secure messages to your provider. In addition, you will have the ability to download any documents or summaries to your computer and/or send the information securely to a physician. Remember that your healthcare information is confidential, so carefully consider who you will allow to register on the [facility] Patient Portal for access to your information. You can also access the [facility] Patient Portal on the [facility]. Simply click on "Patient Portal" and then log into your account. If you would like to receive a full copy of your medical records, please contact the [facility] Medical Records Department by calling [phone], Tuesday through Tuesday between 8 a.m. and 4:30 p.m. HOW TO SAFELY DISPOSE OF PRESCRIPTION MEDICATIONS Please use one of the following methods to safely dispose of your unused medications. 1.Use a drug disposal kit: the drug disposal pouch allows you to safely discard your old and unused drugs. Ask your nurse to give you one when you are discharged.2.Visit a local take-back location: Many local pharmacies and police departments have programs that collect old and unwanted prescription drugs. Call your local pharmacy or go to http://bit.ly/2H4Zh4e to find one close to you.3.Make use of household items: Use cat litter or old coffee grounds to dispose medications if other options are not available. Mix your drugs with these household products, seal them in an airtight container and throw it into the garbage. Call [facility]: [phone] to be sure your drugs can be disposed of in this way. Some medicines may require a different approach.4.Never flush your medications down the toilet. IF YOU HAVE BEEN PRESCRIBED AN OPIOID FOR PAIN If you have been prescribed an opioid (such as hydrocodone, oxycodone or morphine), it is critical to understand the possible side effects and risks of opioid pain medications. Even when taken as directed, opioids can have several side effects including: Tolerance, meaning you might need to take more of a medication for the same pain relief. Nausea, vomiting and/or constipation. Sleepiness, dizziness, dry mouth, confusion, depression or itching. Physical dependence, meaning you have withdrawal symptoms when a medication is stopped, can develop within a few days. KNOW YOUR RESPONSIBILITIES It is important to know exactly how much and how often to take the opioid pain medications you are prescribed. Never take opioids in higher amounts or more often than prescribed. Do not combine opioids with alcohol or other drugs that cause drowsiness, such as benzodiazepines, also known as benzos, including diazepam and alprazolam, muscle relaxants or sleep aids. Never sell or share prescription opioids. This is illegal. Store opioids in a secure place and out of reach of others (including children, family, friends and visitors). The last page of this document has been signed and retained as a CHART COPY. Signatures Patient Education Materials Breast Biopsy, Care After, Qwog-gy-Cssb 1- SDS General Discharge Guidelines (12/03/2022) (CUSTOM) Medication Leaflets My discharge plan and instructions have been reviewed and explained to me and I,SHAYY BRADLEY understand my current condition and have read and understand these discharge instructions. I have received a written copy of the plan/instructions. If I have questions, I am aware that I should contact my doctor. 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 Sky Sinclair at bedside Digitally Signed by ANIRUDH LOPEZ DO on 11/08/2024 09:00 AM [facility] 11-08-2024 Note Exam Date Time Procedure Performing Provider Status 11/08/24 8:58 AM NM Injection [place] Node PAULA PURDY DO; Auth (Verified) [id number] ORIGINAL EXAMINATION: LYMPHOSCINTIGRAPHY (INJECTION)11/08/2024 8:58 am TECHNIQUE: Syringes containing a total of 1.071 millicuries of Tc-99m tilmanocept (Lymphoseek) were injected for sentinel lymph node localization and dissection to be performed by the breast surgeon. COMPARISON: None HISTORY: ORDERING SYSTEM PROVIDED HISTORY: Reason for Exam: breast cancer FINDINGS: No images were acquired. Intraoperative probe to be used for localization. IMPRESSION: Patient with breast carcinoma undergoing Lymphoseek injection for the purposes of sentinel node localization. I have personally reviewed the images of this examination and agree with the resident's findings and interpretation. Interpreted by: Oziel Purdy DO Preliminary Report By: Kirit Montgomery Electronically signed By Oziel Purdy DO Dictated Date: 11/08/2024 9:12:31 AM Prelim Date: 11/08/2024 9:29:20 AM Sign Date: 11/08/2024 9:29:20 AM Ordering Provider: ANIRUDH LOPEZ [id number] Procedure note IR Brief Post Procedure Note Preprocedure Dx: RIGHT breast cancer Post Procedure Dx: Same Procedure: Lymphoseek injection - RIGHT breast Anesthesia: Freeze spray EBL: None Complications: None Status: Unchanged Findings: 1. Successful sentinel node injection x 2 in the upper and outer obinna-areolar distribution of the RIGHT breast at 0835. Plan: 1. Sent to Same Day Surgery Full report to follow. Jocelyn Jean Baptiste PA-C Interventional Radiology Pager: [phone] IR dept: [id number] Available on 1calendar Digitally Signed by JOCELYN JEAN BAPTISTE PA-C on 11/08/2024 08:40 AM [id number] Anesthesiology Consult note Patient: SHAYY BRADLEY Age: 64 years Sex: Female : 1960 Associated Diagnoses: None Author: PAMELA FOX MD Preoperative Information NPO > 8 hrs Anesthesia history Patient's history: negative. Family's history: negative. History of Present Illness 64yo female with PMH of breast cancer, HTN, asthma, obesity, HLD, RA presenting for right axillary SLNB. Patient denies recent CP, SOB, NV, GERD symptoms. Review of Systems Ear/Nose/Mouth/Throat: Negative except as documented in history of present illness. Respiratory: Negative except as documented in history of present illness. Cardiovascular: Negative except as documented in history of present illness. Gastrointestinal: Negative except as documented in history of present illness. Genitourinary: Negative except as documented in history of present illness. Endocrine: Negative except as documented in history of present illness. Musculoskeletal: Negative except as documented in history of present illness. Integumentary: Negative except as documented in history of present illness. Neurologic: Negative except as documented in history of present illness. Health Status Allergies: Allergic Reactions (Selected) Severity Not Documented Tuberculin Zoey Test- Positive., Allergies (1) ActiveSeverityReaction Tuberculin Zoey TestPositive Current medications: (Selected) Inpatient Medications Ordered Kefzol: 2 gram(s), 20 mL, 240 mL/hr, IV Push (INT), PREOP pharm LR 1,000 mL: 20 mL/hr, Intravenous lidocaine 1% preservative-free injectable solution: 2.5 mg, 0.25 mL, Intradermal, prep pharm Prescriptions Prescribed Ventolin HFA MDI (90 mcg/inh) inhalation aerosol: 1 puff(s), Inhalation, q6h, 18 gram(s), 6 Refill(s) atorvastatin 10 mg oral tablet: 1 tab(s), Oral, qDay, 90 tab(s), 3 Refill(s) cloNIDine 0.2 mg oral tablet: 1 tab(s), Oral, qHS, 90 tab(s), 4 Refill(s) folic acid 1 mg oral tablet: 1 mg, 1 tab(s), Oral, qDay, 90 tab(s), 4 Refill(s) lidocaine 5% topical patch: 1 patch(es), Topical, qDay, remove patches after 12 hours, 30 patch(es), 3 Refill(s) lisinopril 10 mg oral tablet: 10 mg, 1 tab(s), Oral, BID, 180 tab(s), 3 Refill(s) venlafaxine 75 mg oral capsule, extended release: 1 cap(s), Oral, qDay, 90 cap(s), 3 Refill(s) Documented Medications Documented Co-Q10 200 mg oral capsule: 200 mg, 1 cap(s), Oral, qAM, 90 cap(s), 0 Refill(s) Fish Oil 1000 mg oral capsule: 1,000 mg, 1 cap(s), Oral, qAM, 60 cap(s), 0 Refill(s) Hair, Skin, & Nails Gummies oral tablet, chewable: 2 tab(s), Chewed, qAM, 0 Refill(s) LORazepam 1 mg oral tablet: 1 mg, 1 tab(s), Oral, TAKE 1 TABLET THE NIGHT BEFORE APPOINTMENT THEN TAKE 1 TABLET AN HOUR BEFORE APPOINTMENT Multivitamin: 1 tab(s), Oral, qAM, 0 Refill(s) Vitamin C 250 mg oral tablet: 500 mg, 2 tab(s), Oral, qAM, 30 tab(s), 0 Refill(s) Voltaren 1% topical gel: 2 gram(s), Topical, BID, PRN: as needed for pain, 1 EA, 0 Refill(s) chondroitin-glucosamine 200 mg-250 mg oral capsule: 1 cap(s), Oral, BID, 0 Refill(s) loratadine 10 mg oral capsule: 10 mg, 1 cap(s), Oral, qHS, 40 cap(s), 0 Refill(s) methotrexate 2.5 mg oral tablet: 20 mg, 8 tab(s), Oral, Tuesday, 4 tab(s), 0 Refill(s) predniSONE 2.5 mg oral tablet: 2.5 mg, 1 tab(s), Oral, qAM, TAKE 1 OR 2 OR 3 TABLETS BY MOUTH DAILY, Medications (3) Active Scheduled: (2) ceFAZolin syringe 2 gram(s) 20 mL, IV Push (INT), PREOP pharm lidocaine 1% (MPF) 2 mL vial pf 2.5 mg 0.25 mL, Intradermal, prep pharm Continuous: (1) Lactated Ringers 1,000 mL 1,000 mL, Intravenous, 20 mL/hr PRN: (0) Problem list: Medical Diverticulosis of sigmoid colon / SNOMED CT 2535764904 / Confirmed Essential hypertension / SNOMED CT 41545183 / Confirmed Family history of breast cancer / SNOMED CT 7021271558 / Confirmed Major depression in full remission / SNOMED CT 3754325132 / Confirmed Breast cancer of upper-outer quadrant of right female breast / SNOMED CT 8445818475 / Confirmed Mixed hyperlipidemia / SNOMED CT 955178549 / Confirmed Rheumatoid arthritis involving multiple sites with positive rheumatoid factor / SNOMED CT 5133661590 / Confirmed Canceled: Anxiety / SNOMED CT 14365100 Canceled: BMI 35.0-35.9,adult / SNOMED CT 717605785 Canceled: Depression / SNOMED CT 00300566 Canceled: Major depression in partial remission / SNOMED CT 22245834 Canceled: Class 2 obesity with body mass index (BMI) of 36.0 to 36.9 in adult / SNOMED CT 8641099375 Canceled: Left elbow pain / SNOMED CT 191642034 Canceled: Adult general medical exam / SNOMED CT 974124281, Active Problems (14) Asthma BMI 36.0-36.9,adult Breast cancer of upper-outer quadrant of right female breast Breast mass in female Diverticulosis of sigmoid colon Essential hypertension Family history of breast cancer History of COVID-19 Immunocompromised Major depression in full remission Mixed hyperlipidemia 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 Procedure history: Cataract ([id number]) in 2022 at 63 Years. Comments: 10/11/2024 7:12 TEOT - AAMIR Bianchi BOTH EYES section (81447327). Deviated nasal septum (665822670). Colonoscopy (887321514). Extraction of wisdom tooth (836838175). 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 Substance Abuse 11/08/2024 Use: Never Tobacco 11/08/2024 Tobacco Use: Never (less than 100 in l Home/Environment 11/08/2024 Living situation: Home/Independent Safe place to go: Yes Domestic Concerns None Lives In 1st floor bathroom, 1st floor bedroom, Multilevel home Current Home Treatments None Special Services and Community Resources None Spouse Name KSY Marital Status of Patient if Patient Independent Adult: Nutrition/Health 11/08/2024 Type of diet: Regular Caffeine intake amount: 1-2X A WEEK Appetite Good Eating Difficulties None Sexual 11/08/2024 Sexually active: Yes Physical Examination Vital Signs (last 24 hrs) Last Charted Temp Fboninkc40.8 DegC (NOV 08 06:29) ZSG584 mmHg (NOV 08 06:29) DBP79 mmHg (NOV 08 06:29) Measurements from flowsheet : Measurements 11/08/2024 6:29 EDT Height 163.8 cm Height in inches 64.5 inch(es) Admission Weight 98.6 kg Weight Lbs 216.9 lb Weight Method Actual [place] Body Weight 55.82 kg Type of Scale Used Bed scale Admission Body Mass Index 36.75 m2 General: Alert and oriented, No acute distress. Airway: Normal temporomandibular joint mobility, Normal mouth, Normal neck range of motion. Mallampati classification: II (soft palate, fauces, uvula visible). Dentition Evaluation: Intact, Own teeth. Respiratory: Lungs are clear to auscultation. Cardiovascular: Normal rate, Regular rhythm. Heart Sounds: Normal. Neurologic: Alert, Oriented, No focal deficits. Review / Management Results review: No qualifying data available . Documentation reviewed: Current records. 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 Anesthetic Preoperative Plan Premedication: intravenous. Anesthetic technique: General. Induction: intravenously. Maintenance airway: Laryngeal mask airway. Postoperative pain management: Per surgeon. Risks discussed: nausea, vomiting, sore throat, dental injury, hypotension, allergic reaction, serious complications. Informed consent: signed by patient. Digitally Signed by PAMELA FOX MD on 11/08/2024 09:01 AM [id number] Discharge instructions Patient Education 10/16/2024 09:34:09 1- [facility] General Discharge Guidelines (12/03/2022) (CUSTOM) [facility] SAME DAY SURGERY DISCHARGE INSTRUCTIONS PLEASE FOLLOW THE INSTRUCTIONS BELOW MARKED WITH AN X: __X_Regular Diet: Start with clear liquids, then soup and crackers. Gradually add other foods unless otherwise instructed by your surgeon __X_Drink extra fluids ACTIVTY: __X_Since you have had anesthetic, it would be advisable not to drive, drink alcohol, or make majordecisions over the next 24 hours. You may require more rest tonight and tomorrow __X_Do not drive vehicle while taking narcotics and as directed by your Surgeon ____Restrict activity as follows: ____Do not have sexual intercourse. Nothing in the vagina-No tampons or Douching _x___No heavy lifting, pushing, or straining ____Elevate operative limb ____Ice as directed __X_Follow all written and verbal instructions given to you by your Doctor _x___Other:DC INSTRUCTION Remove the kevin wrap and the white gauze after 2 days and shower normally. Allow soapy water to washover incision and pat dry. No tub baths or water submersion over the wound. Your wound is covered with skin glue and this will flake off on its own in the next several weeks. Do not actively pick at it or try to remove it. Do not place any lotions, oils, or ointments over the incision as these will dissolve the glue. Please wear a supportive bra the next 2 weeks. No heavy lifting >10 lbs or repetitive motion with the arm on the same side of surgery, until you are seen in clinic. Okay to move arms in full range of motion. No abrupt motion. Do NOT drink alcohol, drive or operate heavy machinery when you are having pain or while on pain medication. Fill your prescription medications on discharge and take as instructed (TAKE NEEDED). May take tylenol and or ibuprofen for mild pain, but do not exceed 4 grams of tylenol per day. Resume home medications as previously prescribed. See medication reconciliation list for further information on home medications. Do not take aspirin, vitamin E, fish oil, or other blood thinners for 5 days after your procedure to prevent bleeding unless specifically instructed. Resume your previous diet as tolerated. If you experience issues about which you have a question, please contact the Breast Surgery Clinic at [phone] If you are unable to reach the Breast Surgery Clinic and you have a more urgent issue, please contact the Hospital Supervisor [facility]acing at [phone] and ask for the Breast Surgery professional architect. For emergent issues, please go to the nearest ER. Follow up in clinic as scheduled in the next 1-2 weeks. Thank you. BATHING/SHOWERING ____Sponge bathe until office visit. ____Sitting in tub of warm water may relieve discomfort ____May tub bathe ____May shower in 24-48 hours with clean linen unless otherwise instructed by your Doctor DRESSING: _x___Keep operative area clean and dry _x___Check the operative area for signs of bleeding. Apply pressure to the bleeding site if necessary. ____Change drip pad as needed ____Wear scrotal support for comfort WATCH FOR SIGNS OF INFECTION: (Usually appears 36-48 hours after surgery) Increased temperature (101 degrees Fahrenheit or higher) Redness or swelling Increased pain Foul odor or drainage If you have any questions, please call your doctor at the number listed on your follow-up instructions. 10/16/2024 09:31:39 Breast Biopsy, Care After, Wqla-ou-Qakj Breast Biopsy, Care After These instructions give you information about caring for yourself after your procedure. Your doctormay also give you more specific instructions. Call your doctor if you have any problems or questions after your procedure. What can I expect after the procedure? After your procedure, it is common to have: Bruising on your breast. Numbness, tingling, or pain near your biopsy site. Follow these instructions at home: Medicines Take rogz-xsi-kbcbgki and prescription medicines only as told by your doctor. Do not drive for 24 hours if you were given a medicine to help you relax (sedative) during your procedure. Do not drink alcohol while taking pain medicine. Do not drive or use heavy machinery while taking prescription pain medicine. Biopsy site care Follow instructions from your doctor about how to take care of your cut from surgery (incision) or your puncture area. Make sure you: ?Wash your hands with soap and water before you change your bandage (dressing). If you cannot use soap and water, use hand food and beverage attendant. ?Change your bandage as told by your doctor. ?Leave stitches (sutures), skin glue, or skin tape (adhesive strips) in place. They may need to stay in place for 2 weeks or longer. If tape strips get loose and curl up, you may trim the loose edges. Do not remove tape strips completely unless your doctor says it is okay. If you have stitches, keep them dry when you take a bath or a shower. Check your cut or puncture area every day for signs of infection. Check for: ?Redness, swelling, or pain. ?Fluid or blood. ?Warmth. ?Pus or a bad smell. Protect the biopsy area. Do not let the area get bumped. Activity If you had a cut during your procedure, avoid activities that could pull your cut open. These include: ?Stretching. ?Reaching over your head. ?Exercise. ?Sports. ?Lifting anything that weighs more than 3 lb (1.4 kg). Return to your normal activities as told by your doctor. Ask your doctor what activities are safe for you. Managing pain, stiffness, and swelling If told, put ice on the biopsy site to relieve swelling: Put ice in a plastic bag. Place a towel between your skin and the bag. Leave the ice on for 20 minutes, 2 3 times a day. General instructions Continue your normal diet. Wear a good support bra for as long as told by your doctor. Get checked for extra fluid around your lymph nodes (lymphedema) as often as told by your doctor. Keep all follow-up visits as told by your doctor. This is important. Contact a doctor if: You notice any of the following at the biopsy site: ?More redness, swelling, or pain. ?More fluid or blood coming from the site. ?The site feels warm to the touch. ?Pus or a bad smell coming from the site. ?The site breaks open after the stitches or skin tape strips have been removed. You have a rash. You have a fever. Get help right away if: You have more bleeding from the biopsy site. Get help right away if bleeding is more than a small spot. You have trouble breathing. You have red streaks around the biopsy site. Summary After your procedure, it is common to have bruising, numbness, tingling, or pain near the biopsy site. Do not drive or use heavy machinery while taking prescription pain medicine. Wear a good support bra for as long as told by your doctor. If you had a cut during your procedure, avoid activities that may pull the cut open. Ask your doctor what activities are safe for you. This information is not intended to replace advice given to you by your health care provider. Make sure you discuss any questions you have with your health care provider. Document Released: 01/01/2010 Document Revised: 08/24/2018 Document Reviewed: 08/24/2018 [place] Patient Education 2020 [employer]. Follow Up Care 09/26/2024 10:45:18 With:ANIRUDH LOPEZ DO Address: [address] [place] [phone] When:10/31/2024 09:40:00 Comments:Follow-up as scheduled [facility] 07-29-2025 Anesthesiology Consult note Patient: SHAYY BRADLEY Age: 64 years Sex: Female : 1960 Associated Diagnoses: None Author: SUKUMAR RODRIGUEZ MD Postoperative Information Post Operative Info: Post op day: Post Anesthesia Care Unit. Patient location: PACU. Assessment Postanesthesia assessment Vitals: Vital signs from flowsheet : Vital Signs 10/16/2024 9:43 EDT Temperature Tympanic 35.9 DegC LOW Peripheral Pulse Rate 80 bpm Respiratory Rate 18 br/min Systolic Blood Pressure Non-Invasive 126 mmHg Diastolic Blood Pressure Non-Invasive 78 mmHg 10/16/2024 9:15 EDT Temperature Temporal Artery 35.8 DegC Apical Heart Rate 83 bpm Respiratory Rate 18 br/min Systolic Blood Pressure Non-Invasive 144 mmHg HI Diastolic Blood Pressure Non-Invasive 86 mmHg 10/16/2024 9:07 EDT Systolic Blood Pressure Non-Invasive 121 mmHg mmHg Diastolic Blood Pressure Non-Invasive 99 mmHg mmHg 10/16/2024 9:05 EDT Heart Rate Monitored 94 bpm bpm Respiratory Rate - Anes 0 br/min br/min Systolic Blood Pressure Non-Invasive 103 mmHg mmHg Diastolic Blood Pressure Non-Invasive 70 mmHg mmHg 10/16/2024 9:01 EDT Systolic Blood Pressure Non-Invasive 143 mmHg mmHg Diastolic Blood Pressure Non-Invasive 88 mmHg mmHg 10/16/2024 9:00 EDT Heart Rate Monitored 92 bpm bpm Respiratory Rate - Anes 16 br/min br/min 10/16/2024 8:58 EDT Systolic Blood Pressure Non-Invasive 170 mmHg mmHg Diastolic Blood Pressure Non-Invasive 101 mmHg mmHg 10/16/2024 8:55 EDT Heart Rate Monitored 91 bpm bpm Respiratory Rate - Anes 12 br/min br/min Systolic Blood Pressure Non-Invasive 165 mmHg mmHg Diastolic Blood Pressure Non-Invasive 79 mmHg mmHg 10/16/2024 8:52 EDT Systolic Blood Pressure Non-Invasive 157 mmHg mmHg Diastolic Blood Pressure Non-Invasive 122 mmHg mmHg 10/16/2024 8:50 EDT Heart Rate Monitored 87 bpm bpm Respiratory Rate - Anes 11 br/min br/min 10/16/2024 8:49 EDT Systolic Blood Pressure Non-Invasive 149 mmHg mmHg Diastolic Blood Pressure Non-Invasive 118 mmHg mmHg 10/16/2024 8:46 EDT Systolic Blood Pressure Non-Invasive 102 mmHg mmHg Diastolic Blood Pressure Non-Invasive 89 mmHg mmHg 10/16/2024 8:45 EDT Heart Rate Monitored 89 bpm bpm Respiratory Rate - Anes 11 br/min br/min 10/16/2024 8:43 EDT Systolic Blood Pressure Non-Invasive 155 mmHg mmHg Diastolic Blood Pressure Non-Invasive 97 mmHg mmHg 10/16/2024 8:40 EDT Heart Rate Monitored 86 bpm bpm Respiratory Rate - Anes 13 br/min br/min Systolic Blood Pressure Non-Invasive 157 mmHg mmHg Diastolic Blood Pressure Non-Invasive 97 mmHg mmHg 10/16/2024 8:37 EDT Systolic Blood Pressure Non-Invasive 166 mmHg mmHg Diastolic Blood Pressure Non-Invasive 98 mmHg mmHg 10/16/2024 8:35 EDT Temperature (Route Not Specified) 36 DegC DegC Heart Rate Monitored 88 bpm bpm Respiratory Rate - Anes 13 br/min br/min 10/16/2024 8:34 EDT Systolic Blood Pressure Non-Invasive 174 mmHg mmHg Diastolic Blood Pressure Non-Invasive 90 mmHg mmHg 10/16/2024 8:31 EDT Systolic Blood Pressure Non-Invasive 162 mmHg mmHg Diastolic Blood Pressure Non-Invasive 88 mmHg mmHg 10/16/2024 8:30 EDT Heart Rate Monitored 96 bpm bpm Respiratory Rate - Anes 17 br/min br/min 10/16/2024 8:29 EDT Systolic Blood Pressure Non-Invasive 178 mmHg mmHg Diastolic Blood Pressure Non-Invasive 99 mmHg mmHg 10/16/2024 8:25 EDT Heart Rate Monitored 95 bpm bpm Respiratory Rate - Anes 20 br/min br/min Systolic Blood Pressure Non-Invasive 146 mmHg mmHg Diastolic Blood Pressure Non-Invasive 124 mmHg mmHg 10/16/2024 8:22 EDT Systolic Blood Pressure Non-Invasive 150 mmHg mmHg Diastolic Blood Pressure Non-Invasive 96 mmHg mmHg 10/16/2024 8:20 EDT Temperature (Route Not Specified) 36 DegC DegC Heart Rate Monitored 89 bpm bpm Respiratory Rate - Anes 15 br/min br/min 10/16/2024 8:19 EDT Systolic Blood Pressure Non-Invasive 143 mmHg mmHg Diastolic Blood Pressure Non-Invasive 90 mmHg mmHg 10/16/2024 8:16 EDT Systolic Blood Pressure Non-Invasive 131 mmHg mmHg Diastolic Blood Pressure Non-Invasive 91 mmHg mmHg 10/16/2024 8:15 EDT Heart Rate Monitored 89 bpm bpm Respiratory Rate - Anes 14 br/min br/min 10/16/2024 8:13 EDT Systolic Blood Pressure Non-Invasive 140 mmHg mmHg Diastolic Blood Pressure Non-Invasive 69 mmHg mmHg 10/16/2024 8:10 EDT Heart Rate Monitored 87 bpm bpm Respiratory Rate - Anes 13 br/min br/min Systolic Blood Pressure Non-Invasive 140 mmHg mmHg Diastolic Blood Pressure Non-Invasive 87 mmHg mmHg 10/16/2024 8:07 EDT Systolic Blood Pressure Non-Invasive 141 mmHg mmHg Diastolic Blood Pressure Non-Invasive 93 mmHg mmHg 10/16/2024 8:05 EDT Temperature (Route Not Specified) 36 DegC DegC Heart Rate Monitored 84 bpm bpm Respiratory Rate - Anes 12 br/min br/min 10/16/2024 8:04 EDT Systolic Blood Pressure Non-Invasive 144 mmHg mmHg Diastolic Blood Pressure Non-Invasive 77 mmHg mmHg 10/16/2024 8:01 EDT Systolic Blood Pressure Non-Invasive 144 mmHg mmHg Diastolic Blood Pressure Non-Invasive 86 mmHg mmHg 10/16/2024 8:00 EDT Heart Rate Monitored 84 bpm bpm Respiratory Rate - Anes 13 br/min br/min 10/16/2024 7:58 EDT Systolic Blood Pressure Non-Invasive 144 mmHg mmHg Diastolic Blood Pressure Non-Invasive 78 mmHg mmHg 10/16/2024 7:55 EDT Heart Rate Monitored 82 bpm bpm Respiratory Rate - Anes 22 br/min br/min Systolic Blood Pressure Non-Invasive 148 mmHg mmHg Diastolic Blood Pressure Non-Invasive 96 mmHg mmHg 10/16/2024 7:52 EDT Systolic Blood Pressure Non-Invasive 139 mmHg mmHg Diastolic Blood Pressure Non-Invasive 73 mmHg mmHg 10/16/2024 7:50 EDT Temperature (Route Not Specified) 36 DegC DegC Heart Rate Monitored 82 bpm bpm Respiratory Rate - Anes 9 br/min br/min 10/16/2024 7:49 EDT Systolic Blood Pressure Non-Invasive 149 mmHg mmHg Diastolic Blood Pressure Non-Invasive 101 mmHg mmHg 10/16/2024 7:46 EDT Systolic Blood Pressure Non-Invasive 139 mmHg mmHg Diastolic Blood Pressure Non-Invasive 94 mmHg mmHg 10/16/2024 7:45 EDT Heart Rate Monitored 79 bpm bpm Respiratory Rate - Anes 11 br/min br/min 10/16/2024 7:43 EDT Systolic Blood Pressure Non-Invasive 145 mmHg mmHg Diastolic Blood Pressure Non-Invasive 96 mmHg mmHg 10/16/2024 7:40 EDT Temperature (Route Not Specified) 36 DegC DegC Heart Rate Monitored 75 bpm bpm Respiratory Rate - Anes 0 br/min br/min Systolic Blood Pressure Non-Invasive 141 mmHg mmHg Diastolic Blood Pressure Non-Invasive 95 mmHg mmHg 10/16/2024 6:10 EDT Temperature Oral 36.1 DegC Peripheral Pulse Rate 71 bpm Respiratory Rate 18 br/min Systolic Blood Pressure Non-Invasive 152 mmHg HI Diastolic Blood Pressure Non-Invasive 86 mmHg . Mental status: at preoperative baseline. Respiratory function: respirations are non-labored, stable. Respiratory support: none. CV function: stable. Cardiovascular support: none. Pain: satisfactory. Nausea status: satisfactory. Postoperative hydration status: within normal limits. Notes: Patient is sufficiently recovered from anesthesia to participate in the evaluation. No follow-up care needed. No complications post-anesthesia., charting delayed due to patient care duties. Digitally Signed by SUKUMAR RODRIGUEZ MD on 10/16/2024 11:29 AM [id number] Summary of episode note Discharge Instructions Thank you for allowing [facility] to assist you with your healthcare needs. The following is importantdischarge information regarding your hospital visit. Your Care Team PAMELA DOMINGUEZ MD What to do next Scheduled Follow-Up Appointments Appointment Type When With Where Contact Information StatusBS OV Post Op 10/31/2024 09:40 AM EDT ANIRUDH LOPEZ DO [facility] Confirmed PC OV Follow Up 11/01/2024 03:30 PM EDT PAMELA DOMINGUEZ MD [facility] Pamela Dominguez MD Confirmed Follow Up Appointments Follow Up with ANIRUDH LOPEZ DO When:10/31/2024 09:40 AM EDT Where:[address] [place] [address]- [phone] Additional Information: Follow-up as scheduled The Following Activity and Diet Have Been Ordered for You Discharge Activity - Ordered -- NO activity restrictions, Follow the post-operative/post-procedure activity instructions provided by your physician's office., 10/16/24 9:25:00 EDT Discharge Diet - Ordered -- Follow the post-operative/post-procedure diet instructions provided by your physician's office.,10/16/24 9:25:00 EDT The Following Equipment Has Been Ordered for You Discharge Home Equipment Discharge Wound Care - Ordered -- Follow the post-operative/post-procedure wound care instructions provided by your physician's office., 10/16/24 9:25:00 EDT The Following Treatments Have Been Ordered for You Discharge Labs No qualifying data available. Discharge Radiology No qualifying data available. Other Therapies No qualifying data available. Post Acute Orders No qualifying data available. Someone Will Contact You Regarding These Home Health Referrals No home referrals have been ordered for you. No one will call you. Allergies Tuberculin Zoey Test Positive Medications Please ask your primary doctor or pharmacist before taking any other medication not listed, including over the counter drugs, herbal medications, vitamins and or supplements as they may interact withyour home medications. What How Much When Instructions Last Dose New acetaminophen (acetaminophen 500 mg oral tablet) 2 tab(s) by mouth Three (3) times a day as needed for as needed for pain Refills: 1 Pickup at [facility] #[id number] New cyclobenzaprine (cyclobenzaprine 10 mg oral tablet) 10 Milligram by mouth Every 8 hours as needed for Pain Refills: 1 Pickup at [facility] #415 New lidocaine topical (lidocaine 5% topical patch) 1 patch(es) Topical Once a day Refills: 2 remove patches after 12 hours Pickup at [facility] #[id number] New ondansetron (ondansetron 4 mg oral tablet, disintegrating) 1 tab(s) by mouth Every 6 hours as needed for Nausea/Vomiting Refills: 1 Pickup at [facility] #4152 Unchanged albuterol (Ventolin HFA MDI (90 mcg/ inh) inhalation aerosol) 1 puff(s) by inhalation Every 6 hours Unchanged ascorbic acid (Vitamin C 250 mg oral tablet) 2 tab(s) by mouth Once a day (in the morning) Unchanged atorvastatin (atorvastatin 10 mg oral tablet) 1 tab(s) by mouth Once a day Unchanged chondroitin-glucosamine (chondroitin-glucosamine 200 mg-250 mg oral capsule) 1 cap by mouth Two (2) times a day Unchanged cloNIDine (cloNIDine 0.2 mg oral tablet) 1 tab(s) by mouth Daily at bedtime Unchanged diclofenac topical (Voltaren 1% topical gel) 2 gram(s) Topical Two (2) times a day as needed for as needed for pain Unchanged folic acid (folic acid 1 mg oral tablet) 1 tab(s) by mouth Once a day Unchanged lisinopril (lisinopril 10 mg oral tablet) 1 tab(s) by mouth Two (2) times a day Unchanged loratadine (loratadine 10 mg oral capsule) 1 cap by mouth Daily at bedtime Unchanged LORazepam (LORazepam 1 mg oral tablet) 1 tab(s) by mouth TAKE 1 TABLET THE NIGHT BEFORE APPOINTMENT THEN TAKE 1 TABLET AN HOUR BEFORE APPOINTMENT Unchanged methotrexate (methotrexate 2.5 mg oral tablet) 8 tab(s) by mouth Every Tuesday Unchanged multivitamin (Hair, Skin, & Nails Gummies oral tablet, chewable) 2 tab(s) Chewed Once a day (in the morning) Unchanged multivitamin (Multivitamin) 1 tab(s) by mouth Once a day (in the morning) Unchanged mupirocin topical (mupirocin 2% topical ointment) 1 application Topical Two (2) times a day Bilateral intranasal application twice daily x 5 days pre-surgery &/ or as many days pre-surgery as possible. Unchanged omega-3 polyunsaturated fatty acids (Fish Oil 1000 mg oral capsule) 1 cap by mouth Once a day (in the morning) Unchanged predniSONE (predniSONE 2.5 mg oral tablet) 1 tab(s) by mouth Once a day (in the morning) TAKE 1 OR 2 OR 3 TABLETS BY MOUTH DAILY Unchanged ubiquinone (Co-Q10 200 mg oral capsule) 1 cap by mouth Once a day (in the morning) Unchanged venlafaxine (venlafaxine 75 mg oral capsule, extended release) 1 cap by mouth Once a day Pharmacy Information [id number]: [address] [place], [place] [phone] Please take this list to your next doctor s visit. Bring all medications you take, including over the counter medications, herbals and other supplements with you to your doctor s visit. Patients and families are reminded to discard old lists and to update any records with all medication providers or retail pharmacies. Education Materials [facility] SAME DAY SURGERY DISCHARGE INSTRUCTIONS PLEASE FOLLOW THE INSTRUCTIONS BELOW MARKED WITH AN X: __X_Regular Diet: Start with clear liquids, then soup and crackers. Gradually add other foods unless otherwise instructed by your surgeon __X_Drink extra fluids ACTIVTY: __X_Since you have had anesthetic, it would be advisable not to drive, drink alcohol, or make majordecisions over the next 24 hours. You may require more rest tonight and tomorrow __X_Do not drive vehicle while taking narcotics and as directed by your Surgeon ____Restrict activity as follows: ____Do not have sexual intercourse. Nothing in the vagina-No tampons or Douching _x___No heavy lifting, pushing, or straining ____Elevate operative limb ____Ice as directed __X_Follow all written and verbal instructions given to you by your Doctor _x___Other:DC INSTRUCTION Remove the kevin wrap and the white gauze after 2 days and shower normally. Allow soapy water to washover incision and pat dry. No tub baths or water submersion over the wound. Your wound is covered with skin glue and this will flake off on its own in the next several weeks. Do not actively pick at it or try to remove it. Do not place any lotions, oils, or ointments over the incision as these will dissolve the glue. Please wear a supportive bra the next 2 weeks. No heavy lifting >10 lbs or repetitive motion with the arm on the same side of surgery, until you are seen in clinic. Okay to move arms in full range of motion. No abrupt motion. Do NOT drink alcohol, drive or operate heavy machinery when you are having pain or while on pain medication. Fill your prescription medications on discharge and take as instructed (TAKE NEEDED). May take tylenol and or ibuprofen for mild pain, but do not exceed 4 grams of tylenol per day. Resume home medications as previously prescribed. See medication reconciliation list for further information on home medications. Do not take aspirin, vitamin E, fish oil, or other blood thinners for 5 days after your procedure to prevent bleeding unless specifically instructed. Resume your previous diet as tolerated. If you experience issues about which you have a question, please contact the Breast Surgery Clinic at [phone] If you are unable to reach the [facility] Surgery Clinic and you have a more urgent issue, please contact the Hospital Supervisor [facility] at [phone] and ask for the Breast Surgery professional architect. For emergent issues, please go to the nearest ER. Follow up in clinic as scheduled in the next 1-2 weeks. Thank you. BATHING/SHOWERING ____Sponge bathe until office visit. ____Sitting in tub of warm water may relieve discomfort ____May tub bathe ____May shower in 24-48 hours with clean linen unless otherwise instructed by your Doctor DRESSING: _x___Keep operative area clean and dry _x___Check the operative area for signs of bleeding. Apply pressure to the bleeding site if necessary. ____Change drip pad as needed ____Wear scrotal support for comfort WATCH FOR SIGNS OF INFECTION: (Usually appears 36-48 hours after surgery) Increased temperature (101 degrees Fahrenheit or higher) Redness or swelling Increased pain Foul odor or drainage If you have any questions, please call your doctor at the number listed on your follow-up instructions. Breast Biopsy, Care After These instructions give you information about caring for yourself after your procedure. Your doctormay also give you more specific instructions. Call your doctor if you have any problems or questions after your procedure. What can I expect after the procedure? After your procedure, it is common to have: Bruising on your breast. Numbness, tingling, or pain near your biopsy site. Follow these instructions at home: Medicines Take ilxo-gob-chpuqcy and prescription medicines only as told by your doctor. Do not drive for 24 hours if you were given a medicine to help you relax (sedative) during your procedure. Do not drink alcohol while taking pain medicine. Do not drive or use heavy machinery while taking prescription pain medicine. Biopsy site care Follow instructions from your doctor about how to take care of your cut from surgery (incision) or your puncture area. Make sure you: ? Wash your hands with soap and water before you change your bandage (dressing). If you cannot use soap and water, use hand food and beverage attendant. ? Change your bandage as told by your doctor. ? Leave stitches (sutures), skin glue, or skin tape (adhesive strips) in place. They may need to stayin place for 2 weeks or longer. If tape strips get loose and curl up, you may trim the loose edges.Do not remove tape strips completely unless your doctor says it is okay. If you have stitches, keep them dry when you take a bath or a shower. Check your cut or puncture area every day for signs of infection. Check for: ? Redness, swelling, or pain. ? Fluid or blood. ? Warmth. ? Pus or a bad smell. Protect the biopsy area. Do not let the area get bumped. Activity If you had a cut during your procedure, avoid activities that could pull your cut open. These include: ? Stretching. ? Reaching over your head. ? Exercise. ? Sports. ? Lifting anything that weighs more than 3 lb (1.4 kg). Return to your normal activities as told by your doctor. Ask your doctor what activities are safe for you. Managing pain, stiffness, and swelling If told, put ice on the biopsy site to relieve swelling: Put ice in a plastic bag. Place a towel between your skin and the bag. Leave the ice on for 20 minutes, 2 3 times a day. General instructions Continue your normal diet. Wear a good support bra for as long as told by your doctor. Get checked for extra fluid around your lymph nodes (lymphedema) as often as told by your doctor. Keep all follow-up visits as told by your doctor. This is important. Contact a doctor if: You notice any of the following at the biopsy site: ? More redness, swelling, or pain. ? More fluid or blood coming from the site. ? The site feels warm to the touch. ? Pus or a bad smell coming from the site. ? The site breaks open after the stitches or skin tape strips have been removed. You have a rash. You have a fever. Get help right away if: You have more bleeding from the biopsy site. Get help right away if bleeding is more than a small spot. You have trouble breathing. You have red streaks around the biopsy site. Summary After your procedure, it is common to have bruising, numbness, tingling, or pain near the biopsy site. Do not drive or use heavy machinery while taking prescription pain medicine. Wear a good support bra for as long as told by your doctor. If you had a cut during your procedure, avoid activities that may pull the cut open. Ask your doctor what activities are safe for you. This information is not intended to replace advice given to you by your health care provider. Make sure you discuss any questions you have with your health care provider. Document Released: 01/01/2010 Document Revised: 08/24/2018 Document Reviewed: 08/24/2018 [employer] Patient Education 2020 [employer]. Additional Information VACCINATE! IT SAVES LIVES! Members of the community who have not yet received the COVID-19 vaccine and would like to receive it can visit one of [facility] vaccine clinics. There are many vaccine clinic locations within the [facility]. For locations and available times, please visit [email or web address].[place].gov/. It is important to note that some COVID mobile vaccine clinics are held outdoors and may be canceled in rainy or stormy conditions. To learn more about pediatric vaccinations (ages 5-11), we invite you to visit the [facility] webpage. [email or web address] learn more about the COVID-19 vaccine, we invite you to visit the CDC website for a list of frequently asked questions.https://www.cdc.gov/coronavirus/2019-ncov/vaccines/faq.html [facility] Patient Portal Access Instructions: Stay connected with your healthcare team and access your personal medical information anytime with the [facility] Patient Portal. Please follow the directions below to create your [employer] account: 1.Access the email account you provided upon registration to the hospital/physician office.2.Look for an invitation email from [facility].3.Open the email and access the invitation link: AcceptInvitation to [employer].4.Fill in the required gee to create your account. To access your account, visit [email or web address]. Click the blue button labeled "Access Patient Portal" and then log in with the username and password that you created in the steps above. You will be able to view your test results, lab results, a summary of your visits, upcoming appointments and more. There is also a convenient messaging option where you can send secure messages to your p [employer]. In addition, you will have the ability to download any documents or summaries to your computer and/or send the information securely to a physician. Remember that your healthcare information is confidential, so carefully consider who you will allowto register on the [facility] Patient Portal for access to your information. You can also access the [facility] Patient Portal on the [facility] [employer]hendra. Simply click on "Patient Portal" and then log into your account. If you would like to receive a full copy of your medical records, please contact the [facility] Medical Records Department by calling [phone], Tuesday through Tuesday between 8 a.m. and 4:30 p.m. HOW TO SAFELY DISPOSE OF PRESCRIPTION MEDICATIONS Please use one of the following methods to safely dispose of your unused medications. 1.Use a drug disposal kit: the drug disposal pouch allows you to safely discard your old and unuseddrugs. Ask your nurse to give you one when you are discharged.2.Visit a local take-back location: Many local pharmacies and police departments have programs that collect old and unwanted prescriptiondrugs. Call your local pharmacy or go to http://bit.ly/0F0Nf2h to find one close to you.3.Make use of household items: Use cat litter or old coffee grounds to dispose medications if other options arenot available. Mix your drugs with these household products, seal them in an airtight container andthrow it into the garbage. Call [facility]: [phone] to be sure your drugs can be disposed of in this way. Some medicines may require a different approach.4.Never flush your medications down the toilet. IF YOU HAVE BEEN PRESCRIBED AN OPIOID FOR PAIN If you have been prescribed an opioid (such as hydrocodone, oxycodone or morphine), it is critical to understand the possible side effects and risks of opioid pain medications. Even when taken as directed, opioids can have several side effects including: Tolerance, meaning you might need to take more of a medication for the same pain relief. Nausea, vomiting and/or constipation. Sleepiness, dizziness, dry mouth, confusion, depression or itching. Physical dependence, meaning you have withdrawal symptoms when a medication is stopped, can develop within a few days. KNOW YOUR RESPONSIBILITIES It is important to know exactly how much and how often to take the opioid pain medications you are prescribed. Never take opioids in higher amounts or more often than prescribed. Do not combine opioids with alcohol or other drugs that cause drowsiness, such as benzodiazepines, also known as benzos, including diazepam and alprazolam, muscle relaxants or sleep aids. Never sell or share prescription opioids. This is illegal. Store opioids in a secure place and out of reach of others (including children, family, friends and visitors). The last page of this document has been signed and retained as a CHART COPY. Signatures Patient Education Materials 1- SDS General Discharge Guidelines (12/03/2022) (CUSTOM) Breast Biopsy, Care After, Ngvq-hs-Hmig Medication Leaflets My discharge plan and instructions have been reviewed and explained to me and I,SHAYY BRADLEY understand my current condition and have read and understand these discharge instructions. I have received a written copy of the plan/instructions. If I have questions, I am aware that I should contactmy doctor. Patient/[employer] Crafts[employer] Signature: Date/Time: Relationship to Patient: Witness Name/Signature: Date/Time: [id number] History and physical note History and Physical Update I have examined the patient; reviewed the History and Physical and there are no changes to the History and Physical unless noted below. Digitally Signed by ANIRUDH LOPEZ DO on 10/16/2024 07:18 AM [facility]waediwy[facility]-6150 Anesthesiology Consult note Patient: SHAYY BRADLEY Age: 64 years Sex: Female : 1960 Associated Diagnoses: None Author: SUKUMAR RODRIGUEZ MD Preoperative Information Time of last solid food intake: 10/15/2024 18:00:00 Anesthesia history Patient's history: negative. Family's history: negative. Health Status Allergies: Allergic Reactions (All) Severity Not Documented Tuberculin Zoey Test- Positive. Canceled/Inactive Reactions (All) NKA, Allergies (1) ActiveSeverityReaction Tuberculin Zoey TestPositive Current medications: (Selected) Inpatient Medications Ordered Kefzol: 2 gram(s), 20 mL, 240 mL/hr, IV Push (INT), PREOP pharm LR 1,000 mL: 20 mL/hr, Intravenous LR 1,000 mL: 20 mL/hr, Intravenous lidocaine 1% preservative-free injectable solution: 2.5 mg, 0.25 mL, Intradermal, prep pharm Prescriptions Prescribed Ventolin HFA MDI (90 mcg/inh) inhalation aerosol: 1 puff(s), Inhalation, q6h, 18 gram(s), 6 Refill(s) atorvastatin 10 mg oral tablet: 1 tab(s), Oral, qDay, 90 tab(s), 3 Refill(s) cloNIDine 0.2 mg oral tablet: 1 tab(s), Oral, qHS, 90 tab(s), 4 Refill(s) folic acid 1 mg oral tablet: 1 mg, 1 tab(s), Oral, qDay, 90 tab(s), 4 Refill(s) lisinopril 10 mg oral tablet: 10 mg, 1 tab(s), Oral, BID, 180 tab(s), 3 Refill(s) mupirocin 2% topical ointment: 1 mahendra, Topical, BID, Bilateral intranasal application twice daily x 5 days pre-surgery &/or as many days pre-surgery as possible., 22 gram(s), 0 Refill(s) venlafaxine 75 mg oral capsule, extended release: 1 cap(s), Oral, qDay, 90 cap(s), 3 Refill(s) Documented Medications Documented Co-Q10 200 mg oral capsule: 200 mg, 1 cap(s), Oral, qAM, 90 cap(s), 0 Refill(s) Fish Oil 1000 mg oral capsule: 1,000 mg, 1 cap(s), Oral, qAM, 60 cap(s), 0 Refill(s) Hair, Skin, & Nails Gummies oral tablet, chewable: 2 tab(s), Chewed, qAM, 0 Refill(s) LORazepam 1 mg oral tablet: 1 mg, 1 tab(s), Oral, TAKE 1 TABLET THE NIGHT BEFORE APPOINTMENT THEN TAKE 1 TABLET AN HOUR BEFORE APPOINTMENT Multivitamin: 1 tab(s), Oral, qAM, 0 Refill(s) Vitamin C 250 mg oral tablet: 500 mg, 2 tab(s), Oral, qAM, 30 tab(s), 0 Refill(s) Voltaren 1% topical gel: 2 gram(s), Topical, BID, PRN: as needed for pain, 1 EA, 0 Refill(s) chondroitin-glucosamine 200 mg-250 mg oral capsule: 1 cap(s), Oral, BID, 0 Refill(s) loratadine 10 mg oral capsule: 10 mg, 1 cap(s), Oral, qHS, 40 cap(s), 0 Refill(s) methotrexate 2.5 mg oral tablet: 20 mg, 8 tab(s), Oral, Tuesday, 4 tab(s), 0 Refill(s) predniSONE 2.5 mg oral tablet: 2.5 mg, 1 tab(s), Oral, qAM, TAKE 1 OR 2 OR 3 TABLETS BY MOUTH DAILY, Medications (4) Active Scheduled: (2) ceFAZolin syringe 2 gram(s) 20 mL, IV Push (INT), PREOP pharm lidocaine 1% (MPF) 2 mL vial pf 2.5 mg 0.25 mL, Intradermal, prep pharm Continuous: (2) Lactated Ringers 1,000 mL 1,000 mL, Intravenous, 20 mL/hr Lactated Ringers 1,000 mL 1,000 mL, Intravenous, 20 mL/hr PRN: (0) Problem list: Medical Essential hypertension / SNOMED CT 77835790 / Confirmed Mixed hyperlipidemia / SNOMED CT 630290552 / Confirmed Rheumatoid arthritis involving multiple sites with positive rheumatoid factor / SNOMED CT 0467012440 / Confirmed Major depression in full remission / SNOMED CT 1302884497 / Confirmed Diverticulosis of sigmoid colon / SNOMED CT 7256268104 / Confirmed, Active Problems (12) Asthma BMI 36.0-36.9,adult Breast mass in female Diverticulosis of sigmoid colon Essential hypertension History of COVID-19 Immunocompromised Major depression in full remission Mixed hyperlipidemia 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 Family History: Breast cancer Paternal Aunt Hypertension Father () Blood dyscrasia Mother () Alive and well Sister Comments: 11/03/2018 10:01 [facility] Procedure history: Cataract (407785618) in 2022 at 63 Years. Comments: 10/11/2024 7:12 AAMIR Corey BOTH EYES section (16622655). Deviated nasal septum (789411745). Colonoscopy (469424321). Extraction of wisdom tooth (267135018). 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 Substance Abuse 10/16/2024 Use: Never Tobacco 10/16/2024 Tobacco Use: Never (less than 100 in l Home/Environment 10/16/2024 Living situation: Home/Independent Safe place to go: Yes Domestic Concerns None Lives In 1st floor bathroom, 1st floor bedroom, Multilevel home Current Home Treatments None Special Services and Community Resources None Spouse Name SKY Marital Status of Patient if Patient Independent Adult: Nutrition/Health 10/16/2024 Type of diet: Regular Caffeine intake amount: 1-2X A WEEK Appetite Good Eating Difficulties None Sexual 10/16/2024 Sexually active: Yes Physical Examination No qualifying data available General: Alert and oriented. Airway: Normal temporomandibular joint mobility, Nares patent, Trachea midline. Mallampati classification: II (soft palate, fauces, uvula visible). Head: Normocephalic, Atraumatic. Dentition Evaluation: Intact, Own teeth, Capped teeth. Respiratory: Lungs are clear to auscultation. Cardiovascular: Normal rate, Regular rhythm. Neurologic: Alert, Oriented. 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 [place], [place] Declaration (Living Will) Advance Directive Location Indicates that Comfort has been given copy Infectious Disease Symptoms Patient states no symptoms Infectious Disease Recent Exposure No Alcohol and Drug Use No Employee of Institutional Living No Health Care Employee No History of Exposure to TB No History of Positive Chest X-Ray for TB No History of Positive TB Skin Test Yes Homeless No Known Immunosuppression No Recent Immigrant No Resident of Institutional Living No Bloody Sputum No Fatigue No Fever No Loss of Appetite No Night Sweats No Persistent Cough > 3 Weeks No Weight Loss No Surgery Scheduled On Date/Time 10/16/2024 7:30 Patient Aware Date/Time Of Surgery Yes Arrival Time the Day of Surgery 10/16/2024 5:30 Patient Aware of Arrival Time Yes Previous Surgery At This Facility Yes Pre-Op Patient Education No makeup, No jewelry, Responsible Democrat, Aware of surgery location, Pre-op education done, 2 bottles CHG wash with instructions given, Instructed to take ordered medications, Instructed to bring home medications, VTE prevention handout given, SSI prevention handout given, MRSA protocol education provided, Clear liquids until arrival SN - Preprocedure Comments Verbalizes/Nonverbally indicates understanding, Other: SPOKE WITH SKY Barriers to Learning None evident Teaching Method Demonstration, Explanation, Printed materials, Teach-back, Video/Educational TV Preferred Spoken Language Citizen Of [place] Preferred Written Language Citizen Of [place] Teaching Evaluation Verbalizes/Nonverbally indicates understanding Safety Brochure Information Reviewed Yes [facility] [place] Video Viewed Yes Patient's Current Physicians Patient's Current Physicians History of Malignant Hyperthermia No Discharge To, Anticipated Home with family care Prev Test Positive/Diagnosis w/COVID-19 No Current Quarantine/Isolated any Illness No Any Contact with Sick Animals/Birds No Traveled Anywhere in Last 30 Days No Lost Weight Unintentionally Recently No Eat Poorly Due to Decreased Appetite No Total MST Score 0 No Personal Devices, Patient Valuables Glasses Anesthesia/Transfusions Prior anesthesia Admission Note-Nursing Same Day Patient History 10/15/2024 14:03 EDT Surgery Scheduled On Date/Time 10/16/2024 7:30 Patient Aware Date/Time Of Surgery Yes Arrival Time the Day of Surgery 10/16/2024 5:30 Patient Aware of Arrival Time Yes Pre-Op Patient Education No makeup, No jewelry, Responsible Democrat, Aware of surgery location, Pre-op education done, 2 bottles CHG wash with instructions given, Instructed to take ordered medications, Instructed to bring home medications, VTE prevention handout given, SSI prevention handout given, MRSA protocol education provided, Clear liquids until arrival (Modified) SN - Preprocedure Comments Verbalizes/Nonverbally indicates understanding, Other: SPOKE WITH SKY (Modified) Admission Note-Nursing Patient History PreTest (Modified) . 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 Anesthetic Preoperative Plan Anesthetic technique: MAC. Induction: intravenously. Maintenance airway: nasal cannula with ETCO2 monitor. Postoperative pain management: Per surgeon. Risks discussed: nausea, vomiting, headache, sore throat, dental injury, hypotension, allergic reaction, serious complications. Informed consent: signed by patient. Notes: asthma, HTN, RA, BMI 36.18. Digitally Signed by SUKUMAR RODRIGUEZ MD on 10/16/2024 07:06 AM [id number] Note* Exam Date Time Procedure Performing Provider Status 09/11/24 11:56 AM SHAYNA Stereotactic Biop sy Rt 1st Lesion ROSEANN GUTIERREZ MD; Auth (Verified) [id number] ORIGINAL FROM: [facility] [address] [place] [id number] PROCEDURE FOR: SHAYY BRADLEY [address] [place] [address] Home: Work: PID#: [id number] Exam#: [id number] : 1960 Age: 64 TO: PAMELA DOMINGUEZ MD [facility] [address] [place], [place] [address] Fax: NO FAX EXAMINATION: STEREOTACTIC BIOPSY OF THE RIGHT BREAST, 09/11/2024 8:54 am COMPARISON: September 07, 2024, August 23, 2024, July 19, 2023, July 15, 2022 HISTORY: ORDERING SYSTEM PROVIDED HISTORY: Reason for Exam: RIGHT MASS FINDINGS: A timeout was performed to confirm patient identification and site of procedure. Risks, benefits, and alternatives of the procedure were discussed. Informed written consent was obtained. A stereotactic guided biopsy was performed for the focal asymmetry located in the right breast at 10-11 o'clock position middle depth. This was described on the previous mammography report. The skin was prepped in the usual manner. Local anesthetic was administered to the access site. A skin nathanael was made in the breast. The abnormality was approached from the cranial caudal aspect using an upright digital tomographic mammography unit. A 9 gauge biopsy needle was placed adjacent to the abnormality under computer guidance and confirmatory stereotactic mammography images were obtained using a vacuum assisted device. A barrel-shaped titanium clip was inserted into the biopsy cavity. Post procedure mammographic imaging demonstrates the biopsy marking clip at the targeted area. A sterile dressing was applied to the access site. The specimens were sent to the laboratory for pathologic analysis. STATUS: Successful IMPRESSION: Stereotactic guided biopsy for the focal asymmetry in the right breast at 10-11 o'clock middle depth was successful with no apparent post procedure complications. Awaiting pathology report. An addendum will be made for radiology-pathology correlation when the pathology reports become available. BIRADS: RECALL: no message RECALL TYPE: unspecified LETTER SENT: No Letter Interpreted by: Roseann Gutierrez Preliminary Report By: Roseann Gutierrez Electronically signed By Roseann Gutierrez Dictated Date: 09/11/2024 12:29:55 PM Prelim Date: 09/11/2024 12:30:41 PM Sign Date: 09/11/2024 12:30:41 PM Ordering Provider: PAMELA DOMINGUEZ Rehab Spec: ISMAEL MELLO RT (R) (M) [facility] [id number] Note* Exam Date Time Procedure Performing Provider Status 09/11/24 9:43 AM MA Mammogram Diagnostic Right ROSEANN GUTIERREZ MD; Auth (Verified) [id number] ORIGINAL FROM: [facility] [address] [place] [address] PROCEDURE FOR: SHAYY BRADLEY [address] [place] [address] Home: Work: PID#: [id number] Exam#: [id number] : 1960 Age: 64 TO: PAMELA DOMINGUEZ MD [facility] [address] [address] Fax: NO FAX EXAMINATION: DIAGNOSTIC DIGITAL RIGHT BREAST MAMMOGRAM, 09/11/2024 9:38 am TECHNIQUE: Diagnostic mammography of the right breast was performed. Computer aided detection was utilized in the interpretation of this exam. Current study was also evaluated with a Computer Aided Detection (CAD) system. COMPARISON: September 11, 2024, September 07, 2024, August 23, 2024, July 19, 2023, July 15, 2022 HISTORY: Post biopsy marking clip placement FINDINGS: BREAST DENSITY: There are scattered areas of fibroglandular density. This exam was utilized for confirmation of placement of a barrel-shaped biopsy marking clip in the right breast. The clip is in the center of the lesion. IMPRESSION: Confirmation of placement of a biopsy marking clip in appropriate position. BIRADS: BI-RADS: n/a RECALL: no message RECALL TYPE: unspecified LETTER SENT: No Letter Interpreted by: Roseann Gutierrez Preliminary Report By: Roseann Gutierrez Electronically signed By Roseann Gutierrez Dictated Date: 09/11/2024 10:38:11 AM Prelim Date: 09/11/2024 12:29:49 PM Sign Date: 09/11/2024 12:29:49 PM Ordering Provider: Rehab Spec: ISMAEL MELLO RT (R) (M) Mammogram BI-RADS: n/a [id number] Note* Exam Date Time Procedure Performing Provider Status 09/07/24 9:08 AM US Breast Right Limited NORA IBRAHIM MD; Auth (Verified) [id number] ORIGINAL FROM: [facility] [address] [place] [address] PROCEDURE FOR: SHAYY BRADLEY [address] [place] [address] Home: Work: PID#: [id number] Exam#: [id number] : 1960 Age: 64 TO: PAMELA DOMINGUEZ MD [facility] [address] [address] Fax: NO FAX EXAMINATION: ULTRASOUND OF THE RIGHT BREAST 09/07/2024 8:20 am TECHNIQUE: Color flow and kaplan scale targeted ultrasound of the right breast were performed. Permanently stored images were reviewed. COMPARISON: 09/07/2024, 08/23/2024, 07/19/2023, 07/15/2022, 04/10/2021 mammograms. HISTORY: ORDERING SYSTEM PROVIDED HISTORY: Reason for Exam: RT BREAST FOCAL ASYMMETRY FINDINGS: There are no significant sonographic findings to correlate with the mammographic findings. IMPRESSION: There are no significant sonographic findings to correlate with the mammographic findings. Since the mammographic lesion is suspicious for malignancy. A stereotactic biopsy is recommended. Elisa Fleming risk calculations, generated with the history provided, report this patient's 10 year risk and lifetime risk for developing breast cancer at 4.8% and 10.3%, respectively. Based on this assessment tool, if the patient's calculated lifetime risk is below 20%, then the patient is considered at average risk for developing breast cancer. If the patient's calculated lifetime risk is at or above 20%, then the patient is considered high risk for developing breast cancer and may be a candidate for supplemental breast MRI screening in addition to annual mammographic screening per the [place] [employer]. BIRADS: BI-RADS: 4: Suspicious RECALL: immediate RECALL TYPE: Biopsy followup LETTER SENT: Biopsy Recommended BI-RADS 4 and 5 Interpreted by: Serenity Ibrahim MD Preliminary Report By: Serenity Ibrahim MD Electronically signed By Serenity Ibrahim MD Dictated Date: 09/07/2024 9:11:13 AM Prelim Date: 09/07/2024 9:24:38 AM Sign Date: 09/07/2024 9:24:38 AM Ordering Provider: PAMELA DOIMNGUEZ Rehab Spec: DENISE YANG RT(R)(M), RDWY letter sent: Biopsy Recommended BI-RADS 4 and 5 Ultrasound BI-RADS: 4 Suspicious for malignancy [facility] [id number] Note* Exam Date Time Procedure Performing Provider Status 09/07/24 8:41 AM MA Mammo Diagnostic Right w/SERENITY Hill MD; Auth (Verified) [id number] ORIGINAL FROM: [place] [address] PROCEDURE FOR: SHAYY Sky BRADLEY [address] [place] [address] Home: Work: PID#: [id number] Exam#: [id number] : 1960 Age: 64 TO: PAMELA DOMINGUEZ MD [facility] [place] [address] Fax: NO FAX EXAMINATION: DIAGNOSTIC DIGITAL RIGHT BREAST MAMMOGRAM WITH TOMOSYNTHESIS, 09/07/2024 8:20 am TECHNIQUE: Diagnostic mammography of the right breast was performed with tomosynthesis. 2D standard and 3D tomosynthesis combination imaging performed through the right breast. Computer aided detection was utilized in the interpretation of this exam. Current study was also evaluated with a Computer Aided Detection (CAD) system. COMPARISON: 08/23/2024 HISTORY: ORDERING SYSTEM PROVIDED HISTORY: Reason for Exam: RT BREAST FOCAL ASYMMETRY FINDINGS: BREAST DENSITY: There are scattered areas of fibroglandular density. The 8 mm focal asymmetry right breast 10-11 o'clock middle depth is confirmed on the additional images. No significant masses, calcifications, or other findings. IMPRESSION: 8 mm focal asymmetry is confirmed on the additional images. An ultrasound will be performed today and will be reported separately. Elisa Brendamegha risk calculations, generated with the history provided, report this patient's 10 year risk and lifetime risk for developing breast cancer at 4.8% and 10.3%, respectively. Based on this assessment tool, if the patient's calculated lifetime risk is below 20%, then the patient is considered at average risk for developing breast cancer. If the patient's calculated lifetime risk is at or above 20%, then the patient is considered high risk for developing breast cancer and may be a candidate for supplemental breast MRI screening in addition to annual mammographic screening per the [place] [employer]. BIRADS: BI-RADS: 0: Incomplete: Need Additional Imaging Evaluation RECALL: immediate RECALL TYPE: US LETTER SENT: Abnormal-Needs additional work up BI-RADS 0 Interpreted by: Serenity Ibrahim MD Preliminary Report By: Serenity Ibrahim MD Electronically signed By Serenity Ibrahim MD Dictated Date: 09/07/2024 8:44:41 AM Prelim Date: 09/07/2024 8:49:18 AM Sign Date: 09/07/2024 8:49:18 AM Ordering Provider: PAMELA DOMINGUEZ Rehab Spec: BROOKLYN CROSS RT(R)(M) letter sent: Abnormal-Needs additional work up BI-RADS 0 Mammogram BI-RADS: 0 Indeterminate [facility] Future Appointments Appointment Date:09/11/2024 09:00:00 AM Scheduled Provider: Location:[facility] Appointment Type:MA Stereotactic Biopsy Right 1st Lesion Appointment Date:11/01/2024 03:30:00 PM Scheduled Provider:PAMELA DOMINGUEZ [facility] Type:PC OV Follow Up Future Scheduled Tests Laboratory* A1C Hemoglobin 05/03/24 * A1C Hemoglobin 09/07/24 * Lipid Profile 05/03/24 Radiology* MA Stereotactic Biopsy Right 1st Lesion 09/11/24 [facility] Evaluation + Plan note Future Appointments Appointment Date:11/01/2024 03:30:00 PM Scheduled Provider:PAMELA DOMINGUEZ MD Location:[facility] Appointment Type:PC OV Follow Up Future Scheduled Tests Laboratory* A1C Hemoglobin 05/03/24 * A1C Hemoglobin 620/25 * Lipid Profile 05/03/24 [facility] + Plan note Future Appointments Appointment Date:10/11/2024 08:00:00 AM Scheduled Provider: Location:[facility] Appointment Type:BCC Megan Reflector Right Appointment Date:10/31/2024 09:40:00 AM Scheduled Provider:ANIRUDH LOPEZ DO Location:[facility] Appointment Type:BS OV Post Op Appointment Date:11/01/2024 03:30:00 PM Scheduled Provider:PAMELA DOMINGUEZ MD [facility] Appointment Type:PC OV Follow Up Future Scheduled Tests Laboratory* A1C Hemoglobin 05/03/24 * A1C Hemoglobin [address] * Lipid Profile 05/03/24 Radiology* MA Breast Ndl Loc Place Right 1st Lesion 10/11/24 [facility] [employer] + Plan note Future Appointments Appointment Date:10/31/2024 09:40:00 AM Scheduled Provider:ANIRUDH LOPEZ DO Location:[facility] Appointment Type:BS OV Post Op Appointment Date:11/01/2024 03:30:00 PM Scheduled Provider:PAMELA DOMINGUEZ MD Location:[facility] Appointment Type:PC OV Follow Up Future Scheduled Tests Laboratory* A1C Hemoglobin 05/03/24 * A1C Hemoglobin [address] * Lipid Profile 05/03/24 [facility] [employer] + Plan note Future Appointments Appointment Date:10/31/2024 09:40:00 AM Scheduled Provider:ANIRUDH LOPEZ DO Location:[facility] Appointment Type:BS OV Post Op Appointment Date:11/01/2024 03:30:00 PM Scheduled Provider:PAMELA DOMINGUEZ MD [facility] Appointment Type:PC OV Follow Up Future Scheduled Tests Laboratory* A1C Hemoglobin 05/03/24 * A1C Hemoglobin 620/25 * Lipid Profile 05/03/24 Radiology* MA Biopsy OR 10/16/24 [facility] + Plan note Future Appointments Appointment Date:11/01/2024 03:30:00 PM Scheduled Provider:PAMELA DOMINGUEZ MD Location:[facility] Appointment Type:PC OV Follow Up Appointment Date:11/08/2024 08:00:00 AM Scheduled Provider: Location:[facility] Appointment Type:NM Injection [place] Node Appointment Date:11/16/2024 01:00:00 PM Scheduled Provider:ANIRUDH LOPEZ DO Location:[facility] Appointment Type:BS OV Post Op Appointment Date:11/20/2024 03:00:00 PM Scheduled Provider:ELLE LU MD Location:[facility] Appointment Type:HEM ONC New Patient Diagnostic Tests Pending * [facility] Send out (Blood Specimens) 10/31/24 Future Scheduled Tests Laboratory* A1C Hemoglobin 05/03/24 * A1C Hemoglobin 09/07/24 * Lipid Profile 05/03/24 Radiology* MA Biopsy OR 10/16/24 * NM Injection [place] Node 11/08/24 [facility] evNimbitation + Plan note Future Appointments Appointment Date:11/16/2024 01:00:00 PM Scheduled Provider:ANIRUDH LOPEZ DO Location:[facility] Appointment Type:BS OV Post Op Appointment Date:11/20/2024 03:00:00 PM Scheduled Provider:ELLE LU MD Location:[facility] Appointment Type:HEM ONC New Patient Appointment Date:05/07/2025 03:30:00 PM Scheduled Provider:PAMELA DOMINGUEZ MD Location:[facility] Appointment Type:PC OV Follow Up Future Scheduled Tests Laboratory* A1C Hemoglobin 05/03/24 * A1C Hemoglobin 09/07/24 * Lipid Profile 05/03/24 Radiology* MA Biopsy OR 10/16/24 [facility] evaluation + Plan note Future Appointments Appointment Date:11/20/2024 03:00:00 PM Scheduled Provider:ELLE LU MD Location:[facility] Appointment Type:HEM ONC New Patient Appointment Date:11/23/2024 03:00:00 PM Scheduled Provider:SILVIA SR MD Location:[facility] Appointment Type:RO Consult Appointment Date:12/10/2024 09:15:00 AM Scheduled Provider: Location:[facility] Appointment Type:OT Outpatient Lymph Evaluation Appointment Date:05/07/2025 03:30:00 PM Scheduled Provider:PAMELA DOMINGUEZ MD Location:[facility] Appointment Type:PC OV Follow Up Future Scheduled Tests Laboratory* A1C Hemoglobin 05/03/24 * A1C Hemoglobin 09/07/24 * Lipid Profile 05/03/24 Radiology* MA Biopsy OR 10/16/24 [facility] Evaluation + Plan note Future Appointments Appointment Date:11/23/2024 03:00:00 PM Scheduled Provider:SILVIA SR MD Location:[facility] Appointment Type:RO Consult Appointment Date:12/10/2024 09:15:00 AM Scheduled Provider: Location:[facility] Appointment Type:OT Outpatient Lymph Evaluation Appointment Date:12/28/2024 03:30:00 PM Scheduled Provider: Location:[facility] Appointment Type:BD Bone Density DEXA Axial Skeleton Appointment Date:01/15/2025 03:30:00 PM Scheduled Provider:ELLE LU MD Location:[facility] Appointment Type:HEM ONC OV Follow Up w/ Appointment Date:05/07/2025 03:30:00 PM Scheduled Provider:PAMELA DOMINGUEZ MD Location:[facility] Appointment Type:PC OV Follow Up Future Scheduled Tests Laboratory* A1C Hemoglobin 05/03/24 * A1C Hemoglobin 09/07/24 * Complete Blood Count 01/15/25 * Lipid Profile 05/03/24 * Complete Metabolic Panel 01/15/25 Radiology* MA Biopsy OR 10/16/24 * BD Bone Density DEXA Axial Skeleton Adult (21 yrs or older) 12/28/24 [facility] Evaluation noteNo assessment information available [facility] Work Phone: Hospital course Narrative No data available for this section [facility] Hospital Discharge instructions No data available for this section [facility] Progress note No data available for this section [facility] Reason for referral (narrative)No reason for referral information [facility] Work Phone: Summary Purpose Family History No Family History Records Found No data available for this section No data available for this section No data available for this section No data available for this section No data available for this section No data available for this section No data available for this section No data available for this section No data available for this section No data available for this section No Family History Records FoundNo Family History Records FoundNo Family History Records Found Advance Directives No Advanced Directives Records FoundNo Advanced Directives Records FoundNo Advanced Directives Records FoundNo Advanced Directives Records Found Chief Complaint and Reason for Visit Chief Complaint Admit Date PAIN- COPY PCP December 14, 2024 2:55pm Additional Source Comments INFORMATION SOURCE (unrecogn ized section and content) DATE CREATED AUTHOR 07/28/2023 [facility] ([place]) DATE CREATED AUTHOR AUTHOR'S ORGANIZ ATION 12/22/2024 [facility] DATE CREATED AUTHOR AUTHOR'S ORGANIZ ATION 12/30/2024 [facility] DATE CREATED AUTHOR AUTHOR'S ORGANIZ ATION 01/03/2025 [facility] Patient Care team informatio n (unrecognized section and content) Team Status: Active Member Role/Relationship Status Dates Dr. Pamela Dominguez MD Primary care physician Activ e Team Status: Inactive Member Role/Relationship Status Dates Dr. Pamela Dominguez MD Primary care physician Activ e Start: December 14, 2024 End: December 14, 2024 Dr. Wandy Mejias MD Attending physician Active Start: December 14, 2024 End: December 14, 2024 Dr. Wandy Mejias MD Referring Provider Active Start: December 14, 2024 End: December 14, 2024 Goals (unrecognized section and content) Goals may be documented in a n alternate section FOR RECORDS PERTAINING TO PATIENTS WHO ARE OR HAVE BEEN ENROLLED IN A CHEMICAL DEPENDENCY/SUBSTANCEABUSE PROGRAM, SOME INFORMATION MAY BE OMITTED. This clinical summary was aggregated from multiple sources. Caution should be exercised in using it in the provision of clinical care. This summary normalizes information from multiple sources, and as a consequence, information in this document may materially change the coding, format and clinical context of patient data. In addition, data may be omitted in some cases. CLINICAL DECISIONS SHOULD BE BASED ON THE PRIMARY CLINICAL RECORDS. [facility] [employer] [facility]. provides no warranty or guarantee of the accuracy or completeness of information in this document.
[2025-01-08 18:32] LABS: Hematocrit 43.9 % (37-47); Hemoglobin 15.0 g/dL (12.0-15.0); Immature Granulocytes Count 0.030 X10^3/uL (0.0-0.0); Mean Corp Hgb Conc 34.2 g/dL (32-36); Mean Corpuscular Volume 90.1 fL (81-99); Mean Platelet Vol. 9.6 fl (6.2-12.0); NRBC Flagged by Analyzer 0 % (0-5); Platelet Count 299 K/mm3 (150-450); RBC Distribution Width CV 12.9 % (11.6-14.6); RBC Distribution Width SD 42.6 fl (35.1-43.9); Red Blood Count 4.87 M/mm3 (4.2-5.4); White Blood Count 9.1 K/mm3 (4.4-11.0)
[2025-01-08 19:01] LABS: AST(SGOT) 34 U/L (<=31); Alanine Aminotransfer ALT/SGPT 40 U/L (<=34); Albumin, Serum 4.2 g/dL (3.4-4.8); Alkaline Phosphatase 114 U/L (35-104); Anion Gap 12 (5-15); BUN 15 mg/dL (4-19); BUN/Creat Ratio 18.8 RATIO (10-20); Calcium,Total 10.0 mg/dL (7.6-11.0); Carbon Dioxide 22.4 mmol/L (21.0-32.0); Chloride 105 mmol/L (98-108); Globulin 3.3 g/dL (2.2-4.2); Glucose 96 mg/dL (70-99); Potassium 4.3 mmol/L (3.3-5.1)
== END | disposition home or self-care (01) ==
LOC: MTLAB 17:50
PROVIDERS: Referring Provider Internal Medicine Rheumatology; Visit Provider Internal Medicine Rheumatology
DX: M05.79 Rheumatoid arthritis with rheumatoid factor of multiple sites without organ or systems involvement (principal); Z79.899 Other long term (current) drug therapy
CPT/HCPCS: 36415; 80053; 85025